=== PATIENT | male | born 1965 | race Caucasian/White ===

== ENCOUNTER 2020-06-04 17:02 | Inpatient (IN) | payer OTHER ==
[2020-06-04] MEDS ORDERED: VANCOMYCIN IV PER PHARMACY 1 EACH MISC MISCELLANE PRN (17:53)
--- NOTE | 2020-06-04 18:04 | ED ---
General Adult HPI - General Source: patient, RN notes reviewed Mode of arrival: ambulatory Limitations: no limitations <Wiliam Renae - Last Filed: 06/04/20 19:02> <Liliane Parker - Last Filed: 06/08/20 00:54> - General Chief complaint: Skin/Abscess/Foreign Body Stated complaint: poss staph infection Time Seen by Provider: 06/04/20 17:47 - History of Present Illness Initial comments: This 55-year-old male presents emergency Department chief complaint of infection to his left leg. Patient states that he was hospitalized a week ago for dehydration, possible food poisoning. Patient states that he started having swelling after of his left leg and which she had an ultrasound was negative for acute DVT. Patient states he is swelling, increased redness or rash. Patient was seen by outpatient coding specialist today, discussed the case with Dr. Crenshaw and which she advised patient to come to the facility to for possible IV antibiotics, admission. Patient reports tries not feeling well, intermittent low-grade temps. Patient states that he has a known diabetic. Patient states his blood sugar has been severely elevated. (Wiliam Renae) - Related Data Allergies Allergy/AdvReac Type Severity Reaction Status Date / Time Penicillins Allergy Unknown Verified 06/04/20 19:29 Review of Systems ROS Other: All systems not noted in ROS Statement are negative. <Wiliam Renae - Last Filed: 06/04/20 19:02> ROS Other: All systems not noted in ROS Statement are negative. <Liliane Parker - Last Filed: 06/08/20 00:54> ROS Statement: Those systems with pertinent positive or pertinent negative responses have been documented in the HPI. Past Medical History Past Medical History: Diabetes Mellitus, Hyperlipidemia, Hypertension History of Any Multi-Drug Resistant Organisms: None Reported Past Psychological History: No Psychological Hx Reported Smoking Status: Never smoker Past Alcohol Use History: None Reported Past Drug Use History: None Reported <Wiliam Renae - Last Filed: 06/04/20 19:02> General Exam Limitations: no limitations General appearance: alert, in no apparent distress Head exam: Present: atraumatic, normocephalic, normal inspection Eye exam: Present: normal appearance, PERRL, EOMI. Absent: scleral icterus, conjunctival injection, periorbital swelling Respiratory exam: Present: normal lung sounds bilaterally. Absent: respiratory distress, wheezes, rales, rhonchi, stridor Cardiovascular Exam: Present: regular rate, normal rhythm, normal heart sounds. Absent: systolic murmur, diastolic murmur, rubs, gallop, clicks GI/Abdominal exam: Present: soft, normal bowel sounds. Absent: distended, tenderness, guarding, rebound, rigid Extremities exam: Present: other (Left lower extremity there is significant swelling, erythema, full thickness cellulitis, there is debridement and wraps noted from wound care) Neurological exam: Present: alert Skin exam: Present: warm, dry, intact, normal color. Absent: rash <Wiliam Renae - Last Filed: 06/04/20 19:02> Course Vital Signs 06/04/20 06/04/20 06/04/20 17:06 20:55 21:03 Temperature 98.8 F 100.2 F H 98.1 F Pulse Rate 81 93 Pulse Rate [ 81 Pulse Oximetery ] Respiratory 18 18 18 Rate Blood Pressure 154/74 165/89 Blood Pressure 192/92 [Right Arm] O2 Sat by Pulse 98 97 97 Oximetry Medical Decision Making - Lab Data Result diagrams: 06/04/20 18:23 <Wiliam Renae - Last Filed: 06/04/20 19:02> - Lab Data Result diagrams: 06/05/20 08:26 06/07/20 06:51 <Liliane Parker - Last Filed: 06/08/20 00:54> - Medical Decision Making 55-year-old presented for left leg infection. Patient was sent in from wound care for admission for IV antiemetics. Patient has extensive cellulitis with recent debridement. Patient will be admitted with consult to wound care infectious disease. (Wiliam Renae) I was available for consultation in the emergency department. The history and physical exam were done by the midlevel provider. I was consulted for this patients care. I reviewed the case with the midlevel provider and based on their presentation of the patient, I agree with the assessment, medical decision making and plan of care as documented. Chart was dictated using [employer] dictation software. Attempts were made to correct any dictation errors however some typographical errors may persist. Patient was seen during a national state of emergency due to the Covid-19 pandemic. (Damer,Liliane A) - Lab Data Lab Results 06/04/20 06/04/20 06/04/20 Range/Units 18:23 18:23 18:23 WBC 11.0 H (3.8-10.6) k/uL RBC 4.18 L (4.30-5.90) m/uL Hgb 11.7 L (13.0-17.5) gm/dL Hct 35.3 L (39.0-53.0) % MCV 84.3 (80.0-100.0) fL MCH 27.9 (25.0-35.0) pg MCHC 33.1 (31.0-37.0) g/dL RDW 12.4 (11.5-15.5) % Plt Count 357 (150-450) k/uL MPV 8.7 Neutrophils % 82 % Lymphocytes % 10 % Monocytes % 5 % Eosinophils % 1 % Basophils % 0 % Neutrophils # 9.0 H (1.3-7.7) k/uL Lymphocytes # 1.1 (1.0-4.8) k/uL Monocytes # 0.5 (0-1.0) k/uL Eosinophils # 0.1 (0-0.7) k/uL Basophils # 0.0 (0-0.2) k/uL PT 9.9 (9.0-12.0) sec INR 0.9 (<1.2) APTT 26.1 (22.0-30.0) sec Sodium 132 L (137-145) mmol/L Potassium 4.8 (3.5-5.1) mmol/L Chloride 97 L (98-107) mmol/L Carbon Dioxide 30 (22-30) mmol/L Anion Gap 5 mmol/L BUN 31 H (9-20) mg/dL Creatinine 1.83 H (0.66-1.25) mg/dL Est GFR (CKD-EPI)AfAm 46 (>60 ml/min/1.73 sqM) Est GFR (CKD-EPI)NonAf 40 (>60 ml/min/1.73 sqM) Glucose 378 H (74-99) mg/dL Plasma Lactic Acid Mello (0.7-2.0) mmol/L Calcium 8.4 (8.4-10.2) mg/dL Total Bilirubin 0.4 (0.2-1.3) mg/dL AST 16 L (17-59) U/L ALT 16 (4-49) U/L Alkaline Phosphatase 112 (38-126) U/L C-Reactive Protein 194.1 H (<10.0) mg/L Total Protein 6.3 (6.3-8.2) g/dL Albumin 2.6 L (3.5-5.0) g/dL 06/04/20 Range/Units 18:23 WBC (3.8-10.6) k/uL RBC (4.30-5.90) m/uL Hgb (13.0-17.5) gm/dL Hct (39.0-53.0) % MCV (80.0-100.0) fL MCH (25.0-35.0) pg MCHC (31.0-37.0) g/dL RDW (11.5-15.5) % Plt Count (150-450) k/uL MPV Neutrophils % % Lymphocytes % % Monocytes % % Eosinophils % % Basophils % % Neutrophils # (1.3-7.7) k/uL Lymphocytes # (1.0-4.8) k/uL Monocytes # (0-1.0) k/uL Eosinophils # (0-0.7) k/uL Basophils # (0-0.2) k/uL PT (9.0-12.0) sec INR (<1.2) APTT (22.0-30.0) sec Sodium (137-145) mmol/L Potassium (3.5-5.1) mmol/L Chloride (98-107) mmol/L Carbon Dioxide (22-30) mmol/L Anion Gap mmol/L BUN (9-20) mg/dL Creatinine (0.66-1.25) mg/dL Est GFR (CKD-EPI)AfAm (>60 ml/min/1.73 sqM) Est GFR (CKD-EPI)NonAf (>60 ml/min/1.73 sqM) Glucose (74-99) mg/dL Plasma Lactic Acid Mello 1.2 (0.7-2.0) mmol/L Calcium (8.4-10.2) mg/dL Total Bilirubin (0.2-1.3) mg/dL AST (17-59) U/L ALT (4-49) U/L Alkaline Phosphatase (38-126) U/L C-Reactive Protein (<10.0) mg/L Total Protein (6.3-8.2) g/dL Albumin (3.5-5.0) g/dL Disposition <Wiliam Renae - Last Filed: 06/04/20 19:02> <Liliane Parker - Last Filed: 06/08/20 00:54> Clinical Impression: Left leg cellulitis, Failure of outpatient treatment Disposition: ADMITTED IP TO THIS HOSP Condition: Fair
[2020-06-04] MEDS ORDERED: VANCOMYCIN 2,000 MG in SODIUM CHLORIDE 0.9% 500 ML 500 ML IVPB ONE (18:30)
[2020-06-04 18:56] LABS: Basophils % (A) 0 %; Eosinophils # (A) 0.1 k/uL (0-0.7); Eosinophils % (A) 1 %; HCT 35.3 % (39.0-53.0); HGB 11.7 gm/dL (13.0-17.5); Lymphocytes # (A) 1.1 k/uL (1.0-4.8); Lymphocytes % (A) 10 %; MCH 27.9 pg (25.0-35.0); MCHC 33.1 g/dL (31.0-37.0); MCV 84.3 fL (80.0-100.0); Mean Platelet Volume 8.7; Monocytes # (A) 0.5 k/uL (0-1.0); Monocytes % (A) 5 %; Neutrophils % (A) 82 %; Platelet Count 357 k/uL (150-450); RBC 4.18 m/uL (4.30-5.90); RDW 12.4 % (11.5-15.5)
[2020-06-04] MEDS ORDERED: LORazepam 2 MG/ML INJ IV PRN (19:03)
[2020-06-04] MEDS ORDERED: ACETAMINOPHEN TAB 325 MG TAB PO PRN (19:03)
[2020-06-04] MEDS ORDERED: MORPHINE SULFATE 4 MG/ML SYRINGE IV PRN (19:03)
[2020-06-04] MEDS ORDERED: NALOXONE 0.4 MG/ML 1 ML VIAL IV PRN (19:03)
[2020-06-04] MEDS ORDERED: ONDANSETRON 4 MG/2 ML VIAL IVP PRN (19:03)
[2020-06-04 19:07] LABS: INR 0.9 (<1.2); Partial Thromboplastin Time 26.1 sec (22.0-30.0); Prothrombin Time 9.9 sec (9.0-12.0)
[2020-06-04 19:13] LABS: Albumin 2.6 g/dL (3.5-5.0); Calcium 8.4 mg/dL (8.4-10.2); Potassium 4.8 mmol/L (3.5-5.1); Total Bilirubin 0.4 mg/dL (0.2-1.3); Total Protein 6.3 g/dL (6.3-8.2)
[2020-06-04 19:27] LABS: C Reactive Protein 194.1 mg/L (<10.0)
[2020-06-04 21:36] LABS: Glucose,Whole Blood 324 mg/dL (75-99)
[2020-06-04] MEDS: INSULIN ASPART (NovoLOG) 100 UNIT/ML VIAL SQ SCH (21:41)
[2020-06-04] MEDS: HEPARIN SODIUM,PORCINE 5,000 UNIT/ML 1 ML VIAL SQ SCH (21:42)
[2020-06-04] MEDS: FAMOTIDINE 20 MG/2 ML VIAL IV SCH (21:42)
[2020-06-04] MEDS ORDERED: hydrALAZINE HCL 25 MG TAB PO PRN (22:05)
[2020-06-04] MEDS ORDERED: METOPROLOL SUCCINATE (ER) 25 MG TAB.ER.24H PO STA (22:14)
[2020-06-05 07:18] LABS: Glucose,Whole Blood 187 mg/dL (75-99)
[2020-06-05] MEDS: FAMOTIDINE 20 MG/2 ML VIAL IV SCH (07:21)
[2020-06-05] MEDS: METOPROLOL SUCCINATE (ER) 25 MG TAB.ER.24H PO SCH ×2 (07:21→20:39)
[2020-06-05] MEDS: INSULIN ASPART (NovoLOG) 100 UNIT/ML VIAL SQ SCH ×4 (07:51→20:42)
[2020-06-05] MEDS: MAGNESIUM OXIDE 400 MG TAB PO SCH (07:52)
[2020-06-05] MEDS: EZETIMIBE 10 MG TAB PO SCH (07:53)
[2020-06-05] MEDS: ASPIRIN 325 MG TAB PO SCH (07:53)
[2020-06-05] MEDS: ESCITALOPRAM 5 MG TAB PO SCH (07:53)
[2020-06-05] MEDS: FENOFIBRATE 160 MG TAB PO SCH (07:53)
[2020-06-05] MEDS: HEPARIN SODIUM,PORCINE 5,000 UNIT/ML 1 ML VIAL SQ SCH ×2 (07:54→20:39)
[2020-06-05] MEDS ORDERED: VANCOMYCIN 2,000 MG in SODIUM CHLORIDE 0.9% 500 ML 500 ML IVPB SCH (08:00)
[2020-06-05 08:46] LABS: Basophils % (A) 0 %; Eosinophils # (A) 0.1 k/uL (0-0.7); Eosinophils % (A) 1 %; Lymphocytes # (A) 1.5 k/uL (1.0-4.8); Lymphocytes % (A) 12 %; MCH 27.4 pg (25.0-35.0); MCHC 32.5 g/dL (31.0-37.0); MCV 84.1 fL (80.0-100.0); Mean Platelet Volume 8.3; Monocytes # (A) 0.6 k/uL (0-1.0); Monocytes % (A) 5 %; Neutrophils # (A) 9.9 k/uL (1.3-7.7); Neutrophils % (A) 80 %; Platelet Count 339 k/uL (150-450); RDW 12.4 % (11.5-15.5); WBC 12.4 k/uL (3.8-10.6)
[2020-06-05] MEDS ORDERED: LOSARTAN 50 MG TAB PO SCH (09:00)
[2020-06-05] MEDS ORDERED: hydroCHLOROthiazide 25 MG TAB PO SCH (09:00)
[2020-06-05] MEDS ORDERED: hydrALAZINE HCL 25 MG TAB PO PRN (10:16)
[2020-06-05] MEDS ORDERED: HYDROmorphone 0.5 MG/0.5 ML SYRINGE IVP PRN (10:19)
[2020-06-05] MEDS: amLODIPine 10 MG TAB PO SCH (10:45)
--- NOTE | 2020-06-05 11:23 | P.CONS ---
History of Present Illness - Reason for Consult Consult date: 06/05/20 wound care - History of Present Illness this is a 55-year-old patient being seen on [address] for a nonhealing ulceration to the left lower extremity. Patient states that he went to the wound care center at [place] who instructed him to go to the ER for cellulitis. Patient has multiple left lower extremity ulcerations that are weeping and Limited to skin breakdown. Patient states that the ulcerations have been going on for about a week before he went to the wound care center. The entire left lower extremity has erythema and induration noted. It is tender to touch. patient's past medical history significant for diabetes mellitus, hyperlipidemia, hypertension. He is not a smoker. Review of Systems Review Of Systems: Constitutional: No fever, no chills, no night sweats. No weight change. No weakness, fatigue or lethargy. No daytime sleepiness. Integumentary:reports wounds, no lesions. No rash or pruritus. No unusual bruising. No change in hair or nails. Past Medical History Past Medical History: Diabetes Mellitus, Hyperlipidemia, Hypertension History of Any Multi-Drug Resistant Organisms: None Reported Past Psychological History: No Psychological Hx Reported Smoking Status: Never smoker Past Alcohol Use History: None Reported Past Drug Use History: None Reported Medications and Allergies Home Medications Medication Instructions Recorded Confirmed Type Arginine [l-Arginine] 500 mg PO DAILY 06/04/20 06/04/20 History Aspirin EC [Ecotrin] 325 mg PO DAILY 06/04/20 06/04/20 History Cinnamon Bark [Cinnamon] 500 mg PO DAILY 06/04/20 06/04/20 History Doxycycline Hyclate [Vibramycin] 100 mg PO BID 06/04/20 06/04/20 History Ergocalciferol [Vitamin D2] 50,000 unit PO MOFR 06/04/20 06/04/20 History Escitalopram [Lexapro] 5 mg PO DAILY 06/04/20 06/04/20 History Ezetimibe [Zetia] 10 mg PO DAILY 06/04/20 06/04/20 History Fenofibrate Nanocrystallized 145 mg PO DAILY 06/04/20 06/04/20 History [Tricor] Insulin Glargine,Hum.rec.anlog 90 units SQ DAILY 06/04/20 06/04/20 History [Toujeo Solostar] Liraglutide [Victoza 3-Jimmy] 1.8 mg SQ DAILY 06/04/20 06/04/20 History Losartan Potassium 100 mg PO DAILY 06/04/20 06/04/20 History Magnesium 200 mg PO DAILY 06/04/20 06/04/20 History Metoprolol Succinate [Toprol XL] 75 mg PO BID 06/04/20 06/04/20 History Multivitamins, Thera [Multivitamin 1 tab PO DAILY 06/04/20 06/04/20 History (formulary)] Ubidecarenone [Co Q-10] 100 mg PO DAILY 06/04/20 06/04/20 History hydroCHLOROthiazide [Hydrodiuril] 25 mg PO DAILY 06/04/20 06/04/20 History Allergies Allergy/AdvReac Type Severity Reaction Status Date / Time Penicillins Allergy Unknown Verified 06/04/20 19:29 Physical Exam Vitals: Vital Signs Temp Pulse Pulse Resp BP BP BP 06/05/20 10:56 98.6 F 80 16 183/94 06/05/20 09:23 98.4 F 91 190/91 06/05/20 08:49 78 06/05/20 07:15 100.1 F H 78 16 218/110 06/05/20 05:59 208/109 06/04/20 23:22 139/74 06/04/20 21:03 98.1 F 81 18 192/92 06/04/20 20:55 100.2 F H 93 18 165/89 06/04/20 17:06 98.8 F 81 18 154/74 Pulse Ox 06/05/20 10:56 95 06/05/20 09:23 06/05/20 08:49 06/05/20 07:15 95 06/05/20 05:59 06/04/20 23:22 06/04/20 21:03 97 06/04/20 20:55 97 06/04/20 17:06 98 Intake and Output 06/04/20 06/05/20 06/05/20 22:59 06:59 14:59 Intake Total 118 Balance 118 Intake: Oral 118 Other: Voiding Method Toilet Urinal # Voids 1 Weight 124.738 kg Physical exam: General Appearance: Alert, cooperative, no distress, appears stated age. Skin: See HPI all other Skin color, texture, tugor normal, no rashes or lesions. Neurologic: Alert oriented x3 Results CBC & Chem 7: 06/05/20 08:26 06/04/20 18:23 Labs: Abnormal Lab Results - Last 24 Hours (Table) 06/04/20 06/04/20 06/04/20 Range/Units 18:23 18:23 21:35 WBC 11.0 H (3.8-10.6) k/uL RBC 4.18 L (4.30-5.90) m/uL Hgb 11.7 L (13.0-17.5) gm/dL Hct 35.3 L (39.0-53.0) % Neutrophils # 9.0 H (1.3-7.7) k/uL Sodium 132 L (137-145) mmol/L Chloride 97 L (98-107) mmol/L BUN 31 H (9-20) mg/dL Creatinine 1.83 H (0.66-1.25) mg/dL Glucose 378 H (74-99) mg/dL POC Glucose (mg/dL) 324 H (75-99) mg/dL AST 16 L (17-59) U/L C-Reactive Protein 194.1 H (<10.0) mg/L Albumin 2.6 L (3.5-5.0) g/dL 06/05/20 06/05/20 Range/Units 07:16 08:26 WBC 12.4 H (3.8-10.6) k/uL RBC (4.30-5.90) m/uL Hgb 12.0 L (13.0-17.5) gm/dL Hct 37.0 L (39.0-53.0) % Neutrophils # 9.9 H (1.3-7.7) k/uL Sodium (137-145) mmol/L Chloride (98-107) mmol/L BUN (9-20) mg/dL Creatinine (0.66-1.25) mg/dL Glucose (74-99) mg/dL POC Glucose (mg/dL) 187 H (75-99) mg/dL AST (17-59) U/L C-Reactive Protein (<10.0) mg/L Albumin (3.5-5.0) g/dL Assessment and Plan (1) Diabetes with skin ulcer Current Visit: Yes Status: Acute Code(s): E11.622 - TYPE 2 DIABETES MELLITUS WITH OTHER SKIN ULCER; L98.499 - NON-PRESSURE CHRONIC ULCER OF SKIN OF SITES W UNSP SEVERITY SNOMED Code(s): 59935641 (2) Non-healing ulcer of multiple sites of lower extremity, limited to breakdown of skin Current Visit: Yes Status: Acute Code(s): L97.901 - NON-PRS CHR ULC UNSP PRT OF UNSP LOW LEG LMT TO BRKDWN SKIN SNOMED Code(s): 77327042 (3) Left leg cellulitis Current Visit: Yes Status: Acute Code(s): L03.116 - CELLULITIS OF LEFT LOWER LIMB SNOMED Code(s): 540927727 Plan: apply absorptive silver to all open areas, saline moistened gauze, ABD, rolled gauze and secure with paper tape. Utilize an Bryn wrap to help control edema. Only change the absorptive silver Tuesday and Tuesday. Change the outer dressings which include saline moistened gauze ABDs rolled gauze and Bryn wrap daily and as needed if overly saturated. patient continue his outpatient wound care appointments with [facility]. Thank for the consultation any questions contact the wound care center DNP note has been reviewed and discussed with Dr. Zhao and the impression and plan of care has been directed as dictated. Time with Patient: Greater than 30 (spoke with related to the wound and dressings.)
[2020-06-05 11:38] LABS: Glucose,Whole Blood 181 mg/dL (75-99)
[2020-06-05] MEDS: hydrALAZINE HCL 50 MG TAB PO STA ×2 (11:40→12:01)
[2020-06-05] MEDS: SODIUM CHLORIDE 0.9% 1,000 ML IV SCH ×2 (11:42→20:39)
[2020-06-05] MEDS: HYDROcodone/APAP 5-325MG 1 EACH TAB PO PRN (14:26)
--- NOTE | 2020-06-05 14:29 | P.HPIM ---
History of Present Illness 55-year-old male was sent in from a PCPs office to wound care center and found to have extensive cellulitis was subsequently sent to ER. Patient has extensive cellulitis and skin breakdown involving the anti-left lower limb with erythema in duration. Patient appears to have sloughing of skin. Patient was sent to the hospital was started on the antibiotics clindamycin. Although patient has of poor renal function with creatinine of 1. the 8 baseline is not available at this time. Patient is not aware of. Any dysfunction. Nephrology was consulted patient was started on IV fluids nephrotoxic agents are being held infectious disease was consulted. Review of Systems REVIEW OF SYSTEMS: CONSTITUTIONAL: No fever, no malaise, no fatigue. HEENT: No recent visual problems or hearing problems. Denied any sore throat. CARDIOVASCULAR: No chest pain, orthopnea, PND, no palpitations, no syncope. PULMONARY: No shortness of breath, no cough, no hemoptysis. GASTROINTESTINAL: No diarrhea, no nausea, no vomiting, no abdominal pain. NEUROLOGICAL: No headaches, no weakness, no numbness. HEMATOLOGICAL: Denies any bleeding or petechiae. GENITOURINARY: Denies any burning micturition, frequency, or urgency. MUSCULOSKELETAL/RHEUMATOLOGICAL: Denies any joint pain, swelling, or any muscle pain. ENDOCRINE: Denies any polyuria or polydipsia. The rest of the 14-point review of systems is negative. Past Medical History Past Medical History: Diabetes Mellitus, Hyperlipidemia, Hypertension History of Any Multi-Drug Resistant Organisms: None Reported Past Psychological History: No Psychological Hx Reported Smoking Status: Never smoker Past Alcohol Use History: None Reported Past Drug Use History: None Reported Medications and Allergies Home Medications Medication Instructions Recorded Confirmed Type Arginine [l-Arginine] 500 mg PO DAILY 06/04/20 06/04/20 History Aspirin EC [Ecotrin] 325 mg PO DAILY 06/04/20 06/04/20 History Cinnamon Bark [Cinnamon] 500 mg PO DAILY 06/04/20 06/04/20 History Doxycycline Hyclate [Vibramycin] 100 mg PO BID 06/04/20 06/04/20 History Ergocalciferol [Vitamin D2] 50,000 unit PO MOFR 06/04/20 06/04/20 History Escitalopram [Lexapro] 5 mg PO DAILY 06/04/20 06/04/20 History Ezetimibe [Zetia] 10 mg PO DAILY 06/04/20 06/04/20 History Fenofibrate Nanocrystallized 145 mg PO DAILY 06/04/20 06/04/20 History [Tricor] Insulin Glargine,Hum.rec.anlog 90 units SQ DAILY 06/04/20 06/04/20 History [Marlen Solostar] Liraglutide [Victoza 3-Jimmy] 1.8 mg SQ DAILY 06/04/20 06/04/20 History Losartan Potassium 100 mg PO DAILY 06/04/20 06/04/20 History Magnesium 200 mg PO DAILY 06/04/20 06/04/20 History Metoprolol Succinate [Toprol XL] 75 mg PO BID 06/04/20 06/04/20 History Multivitamins, Thera [Multivitamin 1 tab PO DAILY 06/04/20 06/04/20 History (formulary)] Ubidecarenone [Co Q-10] 100 mg PO DAILY 06/04/20 06/04/20 History hydroCHLOROthiazide [Hydrodiuril] 25 mg PO DAILY 06/04/20 06/04/20 History Allergies Allergy/AdvReac Type Severity Reaction Status Date / Time Penicillins Allergy Unknown Verified 06/04/20 19:29 Physical Exam Vitals: Vital Signs Temp Pulse Pulse Resp BP BP BP 06/05/20 10:56 98.6 F 80 16 183/94 06/05/20 09:23 98.4 F 91 190/91 06/05/20 08:49 78 06/05/20 07:15 100.1 F H 78 16 218/110 06/05/20 05:59 208/109 06/04/20 23:22 139/74 06/04/20 21:03 98.1 F 81 18 192/92 06/04/20 20:55 100.2 F H 93 18 165/89 06/04/20 17:06 98.8 F 81 18 154/74 Pulse Ox 06/05/20 10:56 95 06/05/20 09:23 06/05/20 08:49 06/05/20 07:15 95 06/05/20 05:59 06/04/20 23:22 06/04/20 21:03 97 06/04/20 20:55 97 06/04/20 17:06 98 Intake and Output 06/04/20 06/05/20 06/05/20 22:59 06:59 14:59 Intake Total 118 Balance 118 Intake: Oral 118 Other: Voiding Method Toilet Urinal # Voids 1 Weight 124.738 kg PHYSICAL EXAMINATION: GENERAL: The patient is alert and oriented x3, not in any acute distress. Well developed, well nourished. HEENT: Pupils are round and equally reacting to light. EOMI. No scleral icterus. No conjunctival pallor. Normocephalic, atraumatic. No pharyngeal erythema. No thyromegaly. CARDIOVASCULAR: S1 and S2 present. No murmurs, rubs, or gallops. PULMONARY: Chest is clear to auscultation, no wheezing or crackles. ABDOMEN: Soft, nontender, nondistended, normoactive bowel sounds. No palpable organomegaly. MUSCULOSKELETAL: No joint swelling or deformity. EXTREMITIES: No cyanosis, clubbing, or pedal edema. NEUROLOGICAL: Gross neurological examination did not reveal any focal deficits. SKIN: Extensive cellulitis of the left leg involving the whole left leg with skin breakdown and ulceration predominantly in the posterior aspect extensive erythema Results CBC & Chem 7: 06/05/20 08:26 06/04/20 18:23 Labs: Abnormal Lab Results - Last 24 Hours (Table) 06/04/20 06/04/20 06/04/20 Range/Units 18:23 18:23 21:35 WBC 11.0 H (3.8-10.6) k/uL RBC 4.18 L (4.30-5.90) m/uL Hgb 11.7 L (13.0-17.5) gm/dL Hct 35.3 L (39.0-53.0) % Neutrophils # 9.0 H (1.3-7.7) k/uL Sodium 132 L (137-145) mmol/L Chloride 97 L (98-107) mmol/L BUN 31 H (9-20) mg/dL Creatinine 1.83 H (0.66-1.25) mg/dL Glucose 378 H (74-99) mg/dL POC Glucose (mg/dL) 324 H (75-99) mg/dL AST 16 L (17-59) U/L C-Reactive Protein 194.1 H (<10.0) mg/L Albumin 2.6 L (3.5-5.0) g/dL 06/05/20 06/05/20 06/05/20 Range/Units 07:16 08:26 11:37 WBC 12.4 H (3.8-10.6) k/uL RBC (4.30-5.90) m/uL Hgb 12.0 L (13.0-17.5) gm/dL Hct 37.0 L (39.0-53.0) % Neutrophils # 9.9 H (1.3-7.7) k/uL Sodium (137-145) mmol/L Chloride (98-107) mmol/L BUN (9-20) mg/dL Creatinine (0.66-1.25) mg/dL Glucose (74-99) mg/dL POC Glucose (mg/dL) 187 H 181 H (75-99) mg/dL AST (17-59) U/L C-Reactive Protein (<10.0) mg/L Albumin (3.5-5.0) g/dL Thrombosis Risk Factor Assmnt - Choose All That Apply Any of the Below Risk Factors Present?: Yes Each Factor Represents 1 point: Age 41-60 years, Obesity (BMI >25) Other Risk Factors: No Other congenital or acquired thrombophilia - If yes, enter type in comment: No Thrombosis Risk Factor Assessment Total Risk Factor Score: 2 Thrombosis Risk Factor Assessment Level: Low Risk Assessment and Plan Plan: -Extensive cellulitis, secondary ulceration diabetic foot infection: Patient will be started on vancomycin infectious disease was consulted. Continue with vancomycin. Cultures will be obtained -Sepsis: Secondary to cellulitis as mentioned above -Hypovolemic hyponatremia IV fluids will be started -Acute renal failure possibly of chronic kidney disease cannot be ruled out cannot stays chronic chronic kidney disease at this time acute renal failure is probably secondary to prerenal azotemia nephrotoxic agents will be held including hydrochlorothiazide, JULES inhibitor continue with IV fluids. -Essential hypertension elevated blood pressure, hypertensive urgency: For which patient was started on amlodipine continue with as needed by mouth hydralazine -Type 2 diabetes mellitus -Hyperlipidemia DVT prophylaxis with heparin subcutaneous -depression
--- NOTE | 2020-06-05 16:23 | CONS ---
CONSULTATION REASON FOR CONSULT: Renal failure. HISTORY OF PRESENT ILLNESS: Patient is a 55-year-old male admitted to the hospital with complaints of significant pain and swelling and redness in his left leg. This has been going on for about a week now. The patient denies any prior history of kidney diseases. There is no history of trauma or injury to his leg. Serum creatinine was 1.83. We do not have any prior labs available for comparison. At home patient was maintained on losartan. He denies use of any nonsteroidal anti-inflammatory agents prior to admission. He currently has good urine output. Blood pressure has been on the high side which was about 218 systolic initially. PAST MEDICAL HISTORY: Significant for type 2 diabetes, hyperlipidemia, hypertension. SOCIAL HISTORY: Negative for smoking, drug abuse or alcohol abuse. MEDICATIONS: At home prior to admission included hydrochlorothiazide, Co-Q10, multivitamins, metoprolol, losartan, magnesium, Tricor, insulin, Zetia, Lexapro, vitamin D2, cinnamon, Ecotrin, Arginine. REVIEW OF SYSTEMS: As per HPI. Other systems negative. PHYSICAL EXAMINATION: Patient is currently comfortable, awake, alert, oriented x3, not in any acute distress. Blood pressure was 183/94, heart rate 80 per minute, he is afebrile. Examination of the heart S1, S2. Examination of the lungs, bilateral breath sounds are heard. Abdomen is soft, nontender, obese. Examination of the lower extremities shows no significant edema right leg. There is significant erythema, redness, scaling and swelling noted in his left lower extremity with ulceration of the skin noted. 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 LABS: Show hemoglobin 12.0, white cell count 12.4, platelet count of 339,000, sodium 132 yesterday, potassium 4.8, chloride 97, BUN 31, creatinine 1.83, calcium 8.4, albumin 2.6. No previous labs available for comparison. ASSESSMENT: 1. Acute kidney injury most likely acute tubular necrosis, associated with underlying infection. Need to rule out underlying chronic kidney disease. Previous labs not available at this time. Repeat labs from today are pending. Continue with IV fluids for now. If renal function continues to worsen, recommend changing the vancomycin to either daptomycin on Zyvox. I will check a urinalysis as well. Continue to hold off on the JULES inhibitors for now. 2. Hypertension uncontrolled. Agree with Norvasc. Continue with the hydralazine and Lopressor for now. Patient's heart rate is not significantly elevated, we can change the Lopressor to Coreg if his blood pressure does not improve. He was on 75 mg b.i.d. at home on the Lopressor which is the same currently. Also check an ultrasound of the kidneys. 3. Left lower extremity cellulitis maintained on antibiotics, currently on vancomycin, monitor levels closely and switch to dabbed to or Zyvox if renal function continues to worsen. 4. Rule out chronic kidney disease. 5. Type 2 diabetes, maintained on insulin prior to admission, currently uncontrolled. 6. Hyperlipidemia. PLAN: Continue with IV fluids. Continue antibiotics. Check urinalysis. Check ultrasound of the kidneys. Repeat labs today and in a.m. Thank you for this consultation. Will continue to follow the patient with you during his hospitalization. MMODL / IJN: [id number] /
[2020-06-05 16:40] LABS: Glucose,Whole Blood 178 mg/dL (75-99)
[2020-06-05 16:53] LABS: African American GFR (CKD) 50.8 (60.0-200.0); Anion Gap 7.6 mmol/L (4.00-12.00); BUN/Creat Ratio 15.29 Ratio (12.00-20.00); Calcium 8.7 mg/dL (8.7-10.3); Carbon Dioxide 28.4 mmol/L (21.6-31.8); Non-African American GFR(CKD) 43.8 (60.0-200.0); Potassium 4.2 mmol/L (3.5-5.5)
[2020-06-05 20:30] LABS: Glucose,Whole Blood 238 mg/dL (75-99)
[2020-06-05 21:12] LABS: Glucose,Whole Blood 226 mg/dL (75-99)
--- NOTE | 2020-06-05 22:13 | P.CONS ---
History of Present Illness - Reason for Consult Consult date: 06/05/20 left leg cellulitis Requesting physician: Rohit Sandoval Sheet - Chief Complaint swelling and pain to left leg x few days - History of Present Illness Patient is a 55-year male presented to the hospital with increasing pain swelling redness of the left lower extremity with apparent has been continuous for the last 1 week, patient mention increasing swelling to the legs followed by blister that has opened leading to formation of ulceration with associated surrounding swelling and redness patient complaining of pain to the left leg to be more of a throbbing to dull aching 5-6 over 10 and no radiation patient did have some chills and a low-grade fever on arrival to the ER with a temperature 100.2 patient did not have significant tachycardia white count elevated at 12.4 patient also have elevated creatinine of 1.83 patient was admitted to the hospital patient has been started on vancomycin pharmacy to dose and he received a dose of Rocephin infectious disease was consulted for further management of antibiotic therapy. Review of Systems Positive point has been mentioned in HPI rest of the systems are negative Past Medical History Past Medical History: Diabetes Mellitus, Hyperlipidemia, Hypertension History of Any Multi-Drug Resistant Organisms: None Reported Past Psychological History: No Psychological Hx Reported Smoking Status: Never smoker Past Alcohol Use History: None Reported Past Drug Use History: None Reported Medications and Allergies Home Medications Medication Instructions Recorded Confirmed Type Arginine [l-Arginine] 500 mg PO DAILY 06/04/20 06/04/20 History Aspirin EC [Ecotrin] 325 mg PO DAILY 06/04/20 06/04/20 History Cinnamon Bark [Cinnamon] 500 mg PO DAILY 06/04/20 06/04/20 History Doxycycline Hyclate [Vibramycin] 100 mg PO BID 06/04/20 06/04/20 History Ergocalciferol [Vitamin D2] 50,000 unit PO MOFR 06/04/20 06/04/20 History Escitalopram [Lexapro] 5 mg PO DAILY 06/04/20 06/04/20 History Ezetimibe [Zetia] 10 mg PO DAILY 06/04/20 06/04/20 History Fenofibrate Nanocrystallized 145 mg PO DAILY 06/04/20 06/04/20 History [Tricor] Insulin Glargine,Hum.rec.anlog 90 units SQ DAILY 06/04/20 06/04/20 History [Toujeo Solostar] Liraglutide [Victoza 3-Jimmy] 1.8 mg SQ DAILY 06/04/20 06/04/20 History Losartan Potassium 100 mg PO DAILY 06/04/20 06/04/20 History Magnesium 200 mg PO DAILY 06/04/20 06/04/20 History Metoprolol Succinate [Toprol XL] 75 mg PO BID 06/04/20 06/04/20 History Multivitamins, Thera [Multivitamin 1 tab PO DAILY 06/04/20 06/04/20 History (formulary)] Ubidecarenone [Co Q-10] 100 mg PO DAILY 06/04/20 06/04/20 History hydroCHLOROthiazide [Hydrodiuril] 25 mg PO DAILY 06/04/20 06/04/20 History Allergies Allergy/AdvReac Type Severity Reaction Status Date / Time Penicillins Allergy Unknown Verified 06/04/20 19:29 Physical Exam Vitals: Vital Signs Temp Pulse Pulse Resp BP BP BP 06/05/20 14:00 99 F 73 16 151/76 06/05/20 10:56 98.6 F 80 16 183/94 06/05/20 09:23 98.4 F 91 190/91 06/05/20 08:49 78 06/05/20 07:15 100.1 F H 78 16 218/110 06/05/20 05:59 208/109 06/04/20 23:22 139/74 06/04/20 21:03 98.1 F 81 18 192/92 06/04/20 20:55 100.2 F H 93 18 165/89 Pulse Ox 06/05/20 14:00 98 06/05/20 10:56 95 06/05/20 09:23 06/05/20 08:49 06/05/20 07:15 95 06/05/20 05:59 06/04/20 23:22 06/04/20 21:03 97 06/04/20 20:55 97 Intake and Output 06/05/20 06/05/20 06/05/20 06:59 14:59 22:59 Intake Total 236 Balance 236 Intake: Oral 236 Other: # Voids 1 1 GENERAL DESCRIPTION: Middle-aged male lying in bed, no distress. No tachypnea or accessory muscle of respiration use. HEENT: Shows Pallor , no scleral icterus. Oral mucous membrane is dry. NECK: Trachea central, no thyromegaly. LUNGS: Unlabored breathing. Clear to auscultation anteriorly. No wheeze or crackle. HEART: S1, S2, regular rate and rhythm. ABDOMEN: Soft, no tenderness , guarding or rigidity EXTREMITIES: Diffuse swelling of the left lower extremity with some erythema no purulent drainage. SKIN: No rash, no masses palpable. NEUROLOGICAL: The patient is awake, alert, oriented x3, mood and affect normal. Results CBC & Chem 7: 06/05/20 08:26 06/05/20 08:26 Labs: Abnormal Lab Results - Last 24 Hours (Table) 06/04/20 06/05/20 06/05/20 Range/Units 21:35 07:16 08:26 WBC 12.4 H (3.8-10.6) k/uL Hgb 12.0 L (13.0-17.5) gm/dL Hct 37.0 L (39.0-53.0) % Neutrophils # 9.9 H (1.3-7.7) k/uL Creatinine (0.6-1.5) mg/dL Est GFR (CKD-EPI)AfAm (60.0-200.0) Est GFR (CKD-EPI)NonAf (60.0-200.0) Glucose (70-110) mg/dL POC Glucose (mg/dL) 324 H 187 H (75-99) mg/dL 06/05/20 06/05/20 06/05/20 Range/Units 08:26 11:37 16:38 WBC (3.8-10.6) k/uL Hgb (13.0-17.5) gm/dL Hct (39.0-53.0) % Neutrophils # (1.3-7.7) k/uL Creatinine 1.7 H (0.6-1.5) mg/dL Est GFR (CKD-EPI)AfAm 50.8 L (60.0-200.0) Est GFR (CKD-EPI)NonAf 43.8 L (60.0-200.0) Glucose 191 H (70-110) mg/dL POC Glucose (mg/dL) 181 H 178 H (75-99) mg/dL Microbiology - Last 24 Hours (Table) 06/05/20 12:21 Anaerobic Culture - Preliminary Leg - Left 06/05/20 12:20 Wound Culture - Preliminary Leg - Left Assessment and Plan Assessment: 1-patient admitted hospital with sepsis suspected have a fever elevated white count sources acute renal failure extremity cellulitis and this will have diffuse swelling redness likely streptococcal disease clinically doubt MRSA or gram-negative infection 2-patient with penicillin allergy limiting the number of antibiotics safe to use , patient received a dose of Rocephin and tolerated it 3-renal insufficiency high risk of nephrotoxicity from vancomycin (1) Left leg cellulitis Current Visit: Yes Status: Acute Code(s): L03.116 - CELLULITIS OF LEFT LOWER LIMB SNOMED Code(s): 562361024 Plan: 1-discontinue vancomycin 2- start the patient on cefazolin 2 g every 8 hour 3-local wound care with dry Aquacel silver dressing and Bryn wrap We will follow on clinical condition and cultures to further adjust medication if needed Thank you for this consultation we will follow the patient along with you Time with Patient: Greater than 30
[2020-06-06] MEDS: SODIUM CHLORIDE 0.9% 1,000 ML IV SCH ×2 (00:52→10:59)
[2020-06-06 07:13] LABS: Glucose,Whole Blood 176 mg/dL (75-99)
[2020-06-06] MEDS ORDERED: VANCOMYCIN 2,000 MG in SODIUM CHLORIDE 0.9% 500 ML 500 ML IVPB SCH (08:00)
[2020-06-06] MEDS: INSULIN ASPART (NovoLOG) 100 UNIT/ML VIAL SQ SCH ×4 (08:40→21:14)
[2020-06-06] MEDS: FENOFIBRATE 160 MG TAB PO SCH (08:41)
[2020-06-06] MEDS: EZETIMIBE 10 MG TAB PO SCH (08:41)
[2020-06-06] MEDS: FAMOTIDINE 20 MG TAB PO SCH (08:41)
[2020-06-06] MEDS: HEPARIN SODIUM,PORCINE 5,000 UNIT/ML 1 ML VIAL SQ SCH ×2 (08:41→21:12)
[2020-06-06] MEDS: ESCITALOPRAM 5 MG TAB PO SCH (08:41)
[2020-06-06] MEDS: ASPIRIN 325 MG TAB PO SCH (08:41)
[2020-06-06] MEDS: amLODIPine 10 MG TAB PO SCH (08:42)
[2020-06-06] MEDS: MAGNESIUM OXIDE 400 MG TAB PO SCH (08:42)
[2020-06-06] MEDS: METOPROLOL SUCCINATE (ER) 25 MG TAB.ER.24H PO SCH ×2 (08:42→21:13)
[2020-06-06] MEDS: HYDROcodone/APAP 5-325MG 1 EACH TAB PO PRN ×2 (08:48→17:56)
[2020-06-06 11:28] LABS: African American GFR (CKD) 47.4 (60.0-200.0); BUN/Creat Ratio 15.56 Ratio (12.00-20.00); Calcium 8.8 mg/dL (8.7-10.3); Non-African American GFR(CKD) 40.9 (60.0-200.0); Potassium 4.4 mmol/L (3.5-5.5)
[2020-06-06 12:04] LABS: Glucose,Whole Blood 189 mg/dL (75-99)
[2020-06-06] MEDS ORDERED: hydrALAZINE HCL 25 MG TAB PO PRN (12:59)
--- NOTE | 2020-06-06 16:38 | P.PN ---
Subjective Progress Note Date: 06/06/20 55-year-old male was sent in from a PCPs office to wound care center and found to have extensive cellulitis was subsequently sent to ER. Patient has extensive cellulitis and skin breakdown involving the anti-left lower limb with erythema in duration. Patient appears to have sloughing of skin. Patient was sent to the hospital was started on the antibiotics clindamycin. Although patient has of poor renal function with creatinine of 1. the 8 baseline is not available at this time. Patient is not aware of. Any dysfunction. Nephrology was consulted patient was started on IV fluids nephrotoxic agents are being held infectious disease was consulted. 06/06/2020 Patient is seen and evaluated in follow-up with no acute overnight issues. Patient's left lower extremity continues to be red with swelling and multiple lesions noted along with skin breakdown although is slightly improved from yesterday. Patient is to continue with wound care and dressing changes. Infectious disease is following vancomycin was discontinued and patient was placed on cefazolin. Preliminary culture showing beta hemolytic strep group g and will await cultures finalization to determine antibiotics. Patient contin ues with gentle IV hydration and creatinine remains at 1.8. Nephrology also following and will obtain renal ultrasound and continue fluids at this time. Patient instructed to continue to elevate the lower extremity while at rest as he continues to have some mild 1-2+ pitting edema noted of the left foot. Blood sugars have been slightly elevated and will continue sliding scale at this time. Will repeat a.m. labs and continue to monitor closely. Review of systems: Constitutional: No reports of fatigue, fever, or chills Cardiovascular: No reports of chest pain or palpitations Respiratory: No reports of shortness of breath or cough GI: No reports of nausea, vomiting, or diarrhea : No reports of dysuria or retention Neurovascular: No reports of weakness or numbness Skin: Reports redness and swelling with some tenderness and itchiness of the left lower extremity All medications have been reviewed Objective - Vital Signs Vital signs: Vital Signs Temp 97.8 F 06/06/20 13:13 Pulse 69 06/06/20 13:13 Resp 13 06/06/20 13:13 BP 199/94 06/06/20 13:13 Pulse Ox 97 06/06/20 13:13 Intake & Output 06/05/20 06/06/20 06/06/20 18:59 06:59 18:59 Intake Total 236 532 Output Total 500 Balance 236 32 Intake: Oral 236 532 Output: Urine 500 Other: Voiding Method Toilet Urinal # Voids 1 1 - Exam GENERAL: The patient is alert and oriented x3, not in any acute distress. Well developed, well nourished. HEENT: Pupils are round and equally reacting to light. EOMI. No scleral icterus. No conjunctival pallor. Normocephalic, atraumatic. No pharyngeal erythema. No thyromegaly. CARDIOVASCULAR: S1 and S2 present. No murmurs, rubs, or gallops. PULMONARY: Chest is clear to auscultation, no wheezing or crackles. ABDOMEN: Soft, nontender, nondistended, normoactive bowel sounds. No palpable organomegaly. MUSCULOSKELETAL: No joint swelling or deformity. EXTREMITIES: No cyanosis, clubbing, mild left pedal edema noted on exam NEUROLOGICAL: Gross neurological examination did not reveal any focal deficits. SKIN: Extensive cellulitis of the left leg involving the whole left leg with skin breakdown and ulceration predominantly in the posterior aspect extensive erythema, slightly improved - Labs CBC & Chem 7: 06/05/20 08:26 06/06/20 07:07 Labs: Abnormal Lab Results - Last 24 Hours (Table) 06/05/20 06/05/20 06/05/20 Range/Units 08:26 16:38 20:29 Carbon Dioxide (21.6-31.8) mmol/L BUN (9.0-27.0) mg/dL Creatinine 1.7 H (0.6-1.5) mg/dL Est GFR (CKD-EPI)AfAm 50.8 L (60.0-200.0) Est GFR (CKD-EPI)NonAf 43.8 L (60.0-200.0) Glucose 191 H (70-110) mg/dL POC Glucose (mg/dL) 178 H 238 H (75-99) mg/dL 06/05/20 06/06/20 06/06/20 Range/Units 21:08 07:07 07:11 Carbon Dioxide 32.0 H (21.6-31.8) mmol/L BUN 28.0 H (9.0-27.0) mg/dL Creatinine 1.8 H (0.6-1.5) mg/dL Est GFR (CKD-EPI)AfAm 47.4 L (60.0-200.0) Est GFR (CKD-EPI)NonAf 40.9 L (60.0-200.0) Glucose 180 H (70-110) mg/dL POC Glucose (mg/dL) 226 H 176 H (75-99) mg/dL 06/06/20 Range/Units 12:01 Carbon Dioxide (21.6-31.8) mmol/L BUN (9.0-27.0) mg/dL Creatinine (0.6-1.5) mg/dL Est GFR (CKD-EPI)AfAm (60.0-200.0) Est GFR (CKD-EPI)NonAf (60.0-200.0) Glucose (70-110) mg/dL POC Glucose (mg/dL) 189 H (75-99) mg/dL Microbiology - Last 24 Hours (Table) 06/05/20 12:20 Gram Stain - Preliminary Leg - Left Wound Culture - Preliminary Beta Hemolytic Strep Group G 06/04/20 18:23 Blood Culture - Preliminary Blood No Growth after 24 hours 06/05/20 12:21 Anaerobic Culture - Preliminary Leg - Left Assessment and Plan Assessment: -Extensive cellulitis, secondary ulceration diabetic foot infection: Patient was started on cefazolin infectious disease following. Cultures preliminary showing beta-hemolytic strep group G and will await finalization -Sepsis: Secondary to cellulitis as mentioned above -Hypovolemic hyponatremia IV fluids will be started, continue with IV fluids and monitor and repeat labs in the morning, nephrology following -Acute renal failure possibly of chronic kidney disease cannot be ruled out chronic chronic kidney disease at this time acute renal failure is probably secondary to prerenal azotemia nephrotoxic agents will be held including hydrochlorothiazide, JULES inhibitor continue with IV fluids. -Essential hypertension elevated blood pressure, hypertensive urgency: For which patient was started on amlodipine continue with as needed by mouth hydralazine -Type 2 diabetes mellitus -Hyperlipidemia -DVT prophylaxis with heparin subcutaneous -depression Plan: Continue local wound care, infectious disease is following and IV antibiotics have been changed to cefazolin waiting for culture finalization. Nephrology also following and will continue gentle IV hydration and will repeat a.m. labs. Her son ordered and currently pending. Further recommendations to follow.
--- NOTE | 2020-06-06 16:42 | PN ---
PROGRESS NOTE Patient is seen for followup for acute kidney injury versus chronic kidney disease. At this time we do not have any previous labs available for comparison. However, patient denies any history of kidney diseases. His serum creatinine has been at 1.8 and 1.7 mg/dL. Patient was admitted to the hospital with severe left leg cellulitis and ulceration with no previous history of trauma or sales. He is maintained on antibiotics. He has had good urine output. The patient is maintained on IV fluids, and serum creatinine is staying at 1.8 and 1.7 mg/dL. PHYSICAL EXAMINATION: On examination today, blood pressure was 186/89, heart rate 74 per minute. Patient had a low-grade temperature of 99.8 degrees Fahrenheit. EXAMINATION OF THE HEART: S1 and S2. EXAMINATION OF LUNGS: Bilateral breath sounds are heard. ABDOMEN: Soft, non-tender, obese. Examination of lower extremities shows left leg currently wrapped. Right leg has no edema. [employer] exam is grossly intact. LABS: Labs show sodium 136, potassium 4.4, chloride 99. CO2 is 32, BUN 28, creatinine 1.8 mg/dL. UA is not available yet. ASSESSMENT: 1. Renal failure, acute versus chronic. No previous labs available for comparison. Renal function is the same for the last 3 days. Patient is maintained on IV fluids and the JULES inhibitors are currently on hold. 2. Hypertension, currently uncontrolled. Patient is maintained on Norvasc, hydralazine and Lopressor. The hydralazine is p.r.n. I will add it as a scheduled dose. 3. Left lower extremity cellulitis, maintained on antibiotics. The patient was on vancomycin, which is now discontinued, and he is on cefazolin currently. PLAN: Change hydralazine to scheduled dose. Continue cefazolin as per ID. Continue to avoid nephrotoxic medications, including vancomycin. The patient will definitely need followup as outpatient for possible CKD. MMODL / IJN: [id number] /
--- NOTE | 2020-06-06 17:52 | US ---
EXAMINATION TYPE: US kidneys/renal and bladder DATE OF EXAM: 06/06/2020 COMPARISON: NONE CLINICAL HISTORY: Elevated creatinine, acute renal failure. Renal failure. EXAM MEASUREMENTS: Right Kidney: 12.5 x 5.8 x 4.6 cm Left Kidney: 11.6 x 6.1 x 5.7 cm Right Kidney: No hydronephrosis or masses seen Left Kidney: No hydronephrosis or masses seen Bladder: wnl Bilateral Jets seen: No There is no evidence for hydronephrosis at this point in time. No nephrolithiasis is seen. No sharon s are identified. The urinary bladder is anechoic. IMPRESSION: No evidence of renal mass or obstruction. Ureteral jets were not evident during the time of the exam. Urinary bladder is sonolucent.
[2020-06-06 17:58] LABS: Glucose,Whole Blood 204 mg/dL (75-99)
[2020-06-06 20:48] LABS: Glucose,Whole Blood 195 mg/dL (75-99)
[2020-06-06] MEDS: hydrALAZINE HCL 25 MG TAB PO SCH (21:13)
--- NOTE | 2020-06-07 00:54 | PN ---
PROGRESS NOTE DATE OF SERVICE: 06/06/2020 REASON FOR FOLLOWUP: Left lower extremity cellulitis. INTERVAL HISTORY: Patient is currently afebrile. The patient is breathing comfortably. Overall pain and discomfort to the left left slightly decreased. The patient denies having any chest pain, shortness of breath or cough. No abdominal pain or diarrhea. PHYSICAL EXAMINATION: Blood pressure 118/95 with a pulse of 73, temperature 98.6. He is 96% on room air. General description is a middle-aged male lying in bed in no distress. Respiratory system: Unlabored breathing, clear to auscultation anteriorly. Heart S1, S2. Regular rate and rhythm. Abdomen soft, no tenderness. Left lower extremity swelling and redness slightly decreased. No drainage. LABS: BUN of 20, creatinine is 1.8. DIAGNOSTIC IMPRESSION AND PLAN: Patient with acute left lower extremity cellulitis local culture with beta hemolytic strep group G. The patient is covered with cefazolin to continue, wound care with Aquacel dressing and monitor clinical course closely. MMODL / IJN: [id number] /
[2020-06-07] MEDS: SODIUM CHLORIDE 0.9% 1,000 ML IV SCH (01:15)
[2020-06-07 07:25] LABS: Glucose,Whole Blood 176 mg/dL (75-99)
[2020-06-07] MEDS: HEPARIN SODIUM,PORCINE 5,000 UNIT/ML 1 ML VIAL SQ SCH ×2 (08:29→21:26)
[2020-06-07] MEDS: ASPIRIN 325 MG TAB PO SCH (08:29)
[2020-06-07] MEDS: FAMOTIDINE 20 MG TAB PO SCH (08:29)
[2020-06-07] MEDS: hydrALAZINE HCL 25 MG TAB PO SCH ×3 (08:29→21:26)
[2020-06-07] MEDS: HYDROcodone/APAP 5-325MG 1 EACH TAB PO PRN ×2 (08:29→21:31)
[2020-06-07] MEDS: METOPROLOL SUCCINATE (ER) 25 MG TAB.ER.24H PO SCH ×2 (08:30→21:25)
[2020-06-07] MEDS: MAGNESIUM OXIDE 400 MG TAB PO SCH (08:30)
[2020-06-07] MEDS: amLODIPine 10 MG TAB PO SCH (08:30)
[2020-06-07] MEDS: INSULIN ASPART (NovoLOG) 100 UNIT/ML VIAL SQ SCH ×4 (08:31→21:25)
[2020-06-07] MEDS: EZETIMIBE 10 MG TAB PO SCH (08:32)
[2020-06-07] MEDS: ESCITALOPRAM 5 MG TAB PO SCH (08:32)
[2020-06-07] MEDS: FENOFIBRATE 160 MG TAB PO SCH (08:32)
[2020-06-07 11:31] LABS: Glucose,Whole Blood 232 mg/dL (75-99)
[2020-06-07 12:33] LABS: African American GFR (CKD) 50.8 (60.0-200.0); Anion Gap 5.7 mmol/L (4.00-12.00); BUN/Creat Ratio 16.47 Ratio (12.00-20.00); Calcium 8.4 mg/dL (8.7-10.3); Carbon Dioxide 29.3 mmol/L (21.6-31.8); Non-African American GFR(CKD) 43.8 (60.0-200.0); Potassium 4.6 mmol/L (3.5-5.5)
[2020-06-07 17:22] LABS: Glucose,Whole Blood 268 mg/dL (75-99)
[2020-06-07 19:48] LABS: Glucose,Whole Blood 268 mg/dL (75-99)
--- NOTE | 2020-06-07 23:45 | PN ---
PROGRESS NOTE DATE OF SERVICE: 06/07/2020 REASON FOR FOLLOWUP: Left lower extremity cellulitis. INTERVAL HISTORY: Patient is currently afebrile. The patient is breathing comfortably. Patient denies having any chest pain. No shortness of breath or cough. No nausea or vomiting or abdominal pain. Overall pain and discomfort to the left leg has improved. PHYSICAL EXAMINATION: Blood pressure 183/73 with a pulse of 76, temperature 98.4. He is 95% on room air. General description: The patient is a middle-aged male lying in bed in no distress. Respiratory system: Unlabored breathing, clear to auscultation anteriorly. Heart S1, S2. Regular rate and rhythm. Abdomen soft, no tenderness. The left leg is currently wrapped up. No obvious drainage on the dressing. LABS: BUN of 28, creatinine 1.7. DIAGNOSTIC IMPRESSION AND PLAN: Patient with acute left lower extremity cellulitis with diffuse swelling and redness, likely streptococcal disease. Patient to continue with cefazolin. We will reevaluate liver enzymes tomorrow. Continue with Bryn wrap to keep the swelling down and continue supportive care. MMODL / IJN: [id number] /
[2020-06-08] MEDS: SODIUM CHLORIDE 0.9% 1,000 ML IV SCH ×2 (00:32→14:46)
[2020-06-08] MEDS: HYDROcodone/APAP 5-325MG 1 EACH TAB PO PRN ×3 (06:56→21:10)
[2020-06-08] MEDS: FAMOTIDINE 20 MG TAB PO SCH ×2 (07:22→21:14)
[2020-06-08] MEDS: EZETIMIBE 10 MG TAB PO SCH (07:22)
[2020-06-08] MEDS: ESCITALOPRAM 5 MG TAB PO SCH (07:22)
[2020-06-08] MEDS: amLODIPine 10 MG TAB PO SCH (07:23)
[2020-06-08] MEDS: ASPIRIN 325 MG TAB PO SCH (07:23)
[2020-06-08] MEDS: MAGNESIUM OXIDE 400 MG TAB PO SCH (07:24)
[2020-06-08] MEDS: FENOFIBRATE 160 MG TAB PO SCH (07:24)
[2020-06-08] MEDS: METOPROLOL SUCCINATE (ER) 25 MG TAB.ER.24H PO SCH ×2 (07:26→21:11)
[2020-06-08] MEDS: HEPARIN SODIUM,PORCINE 5,000 UNIT/ML 1 ML VIAL SQ SCH ×2 (07:29→21:11)
[2020-06-08 07:38] LABS: Glucose,Whole Blood 161 mg/dL (75-99)
[2020-06-08] MEDS: INSULIN ASPART (NovoLOG) 100 UNIT/ML VIAL SQ SCH ×4 (07:41→21:11)
[2020-06-08] MEDS: hydrALAZINE HCL 25 MG TAB PO SCH (07:47)
[2020-06-08 09:54] LABS: African American GFR (CKD) 54.6 (60.0-200.0); Anion Gap 4.8 mmol/L (4.00-12.00); BUN/Creat Ratio 16.25 Ratio (12.00-20.00); Calcium 8.5 mg/dL (8.7-10.3); Carbon Dioxide 30.2 mmol/L (21.6-31.8); Non-African American GFR(CKD) 47.1 (60.0-200.0); Potassium 4.3 mmol/L (3.5-5.5)
[2020-06-08 11:50] LABS: Glucose,Whole Blood 187 mg/dL (75-99)
--- NOTE | 2020-06-08 13:34 | P.PN ---
Subjective Progress Note Date: 06/08/20 For acute kidney injury. Objective - Vital Signs Vital signs: Vital Signs Temp 98.3 F 06/08/20 07:49 Pulse 64 06/08/20 08:00 Resp 17 06/08/20 08:00 BP 182/100 06/08/20 07:49 Pulse Ox 97 06/08/20 07:49 Intake & Output 06/07/20 06/08/20 06/08/20 18:59 06:59 18:59 Intake Total 1650 480 Output Total 500 Balance 1649 Intake: Intake, IV Titration 800 Amount Sodium Chloride 0.9% 1, 600 000 ml @ 50 mls/hr IV . Q20H [facility] Rx#:[id number] ceFAZolin 2 gm In Sodium 200 Chloride 0.9% 50 ml @ 100 mls/hr IVPB Q8H [facility] Rx#: [id number] Oral 850 480 Output: Urine 500 Other: Voiding Method Toilet Toilet Urinal Urinal # Voids 3 1 - Exam No acute distress S1-S2 heard Lungs clear No edema on left leg wrapped. - Labs CBC & Chem 7: 06/05/20 08:26 06/08/20 05:55 Labs: Abnormal Lab Results - Last 24 Hours (Table) 06/07/20 06/07/20 06/08/20 Range/Units 17:04 19:47 05:55 Creatinine 1.6 H (0.6-1.5) mg/dL Est GFR (CKD-EPI)AfAm 54.6 L (60.0-200.0) Est GFR (CKD-EPI)NonAf 47.1 L (60.0-200.0) Glucose 126 H (70-110) mg/dL POC Glucose (mg/dL) 268 H 268 H (75-99) mg/dL Calcium 8.5 L (8.7-10.3) mg/dL 06/08/20 06/08/20 Range/Units 07:24 11:19 Creatinine (0.6-1.5) mg/dL Est GFR (CKD-EPI)AfAm (60.0-200.0) Est GFR (CKD-EPI)NonAf (60.0-200.0) Glucose (70-110) mg/dL POC Glucose (mg/dL) 161 H 187 H (75-99) mg/dL Calcium (8.7-10.3) mg/dL Microbiology - Last 24 Hours (Table) 06/04/20 18:23 Blood Culture - Preliminary Blood No Growth after 72 hours 06/05/20 12:21 Anaerobic Culture - Preliminary Leg - Left 06/05/20 12:20 Gram Stain - Final Leg - Left Wound Culture - Final Beta Hemolytic Strep Group G Assessment and Plan Assessment: #1 acute kidney injury/chronic kidney disease suspect prerenal process. No previous renal function to compare. #2 hypertension with chronic kidney disease, uncontrolled #3 left foot infection #4 metabolic alkalosis Plan: #1 no function stable. Currently on saline at 50 ML's an hour. #2 on amlodipine and hydralazine for blood pressure control. Increase hydralazine to 50 mg 3 times a day. #3 avoid nephrotoxic agents and hypotensive episodes.
[2020-06-08] MEDS: hydrALAZINE HCL 50 MG TAB PO SCH ×2 (14:51→21:14)
--- NOTE | 2020-06-08 15:34 | P.PN ---
Subjective Progress Note Date: 06/07/20 55-year-old male was sent in from a PCPs office to wound care center and found to have extensive cellulitis was subsequently sent to ER. Patient has extensive cellulitis and skin breakdown involving the anti-left lower limb with erythema in duration. Patient appears to have sloughing of skin. Patient was sent to the hospital was started on the antibiotics clindamycin. Although patient has of poor renal function with creatinine of 1. the 8 baseline is not available at this time. Patient is not aware of. Any dysfunction. Nephrology was consulted patient was started on IV fluids nephrotoxic agents are being held infectious disease was consulted. 06/06/2020 Patient is seen and evaluated in follow-up with no acute overnight issues. Patient's left lower extremity continues to be red with swelling and multiple lesions noted along with skin breakdown although is slightly improved from yesterday. Patient is to continue with wound care and dressing changes. Infectious disease is following vancomycin was discontinued and patient was placed on cefazolin. Preliminary culture showing beta hemolytic strep group g and will await cultures finalization to determine antibiotics. Patient continu es with gentle IV hydration and creatinine remains at 1.8. Nephrology also following and will obtain renal ultrasound and continue fluids at this time. Patient instructed to continue to elevate the lower extremity while at rest as he continues to have some mild 1-2+ pitting edema noted of the left foot. Blood sugars have been slightly elevated and will continue sliding scale at this time. Will repeat a.m. labs and continue to monitor closely. 06/07/2020 Patient is seen and evaluated in room at bedside; remains afebrile; resting comfortably; denies any complaint of chest pain or shortness of breath Vital signs revealed blood pressure of 183/73, pulse 76, temperature of 98.4 with SpO2 of 95% on room air; BUN/creatinine at 28/1.7 Patient continues to have left lower extremity cellulitis with diffuse swelling and redness; IDs following; likely streptococcal infection; shouldn't remains on IV cefazolin; Bryn wrap on to keep swelling down Objective - Vital Signs Vital signs: Vital Signs Temp 98.1 F 06/07/20 14:00 Pulse 68 06/07/20 14:00 Resp 17 06/07/20 14:00 BP 175/94 06/07/20 14:00 Pulse Ox 97 06/07/20 14:00 Intake & Output 06/06/20 06/07/20 06/07/20 18:59 06:59 18:59 Intake Total 2212 Output Total 500 500 Balance 1712 -500 Intake: Intake, IV Titration 700 Amount Sodium Chloride 0.9% 1, 600 000 ml @ 50 mls/hr IV . Q20H AMALIA Rx#:[id number] ceFAZolin 2 gm In Sodium 100 Chloride 0.9% 50 ml @ 100 mls/hr IVPB Q8H AMALIA Rx#: [id number] Oral 1512 Output: Urine 500 500 Other: Voiding Method Toilet Urinal # Voids 2 - Exam GENERAL: The patient is alert and oriented x3, not in any acute distress. Well developed, well nourished. HEENT: Pupils are round and equally reacting to light. EOMI. No scleral icterus. No conjunctival pallor. Normocephalic, atraumatic. No pharyngeal erythema. No thyromegaly. CARDIOVASCULAR: S1 and S2 present. No murmurs, rubs, or gallops. PULMONARY: Chest is clear to auscultation, no wheezing or crackles. ABDOMEN: Soft, nontender, nondistended, normoactive bowel sounds. No palpable organomegaly. MUSCULOSKELETAL: No joint swelling or deformity. EXTREMITIES: No cyanosis, clubbing, mild left pedal edema noted on exam NEUROLOGICAL: Gross neurological examination did not reveal any focal deficits. SKIN: Extensive cellulitis of the left leg involving the whole left leg with skin breakdown and ulceration predominantly in the posterior aspect extensive erythema, slightly improved - Labs CBC & Chem 7: 06/05/20 08:26 06/08/20 05:55 Labs: Abnormal Lab Results - Last 24 Hours (Table) 06/06/20 06/06/20 06/07/20 Range/Units 17:57 20:46 06:51 BUN 28.0 H (9.0-27.0) mg/dL Creatinine 1.7 H (0.6-1.5) mg/dL Est GFR (CKD-EPI)AfAm 50.8 L (60.0-200.0) Est GFR (CKD-EPI)NonAf 43.8 L (60.0-200.0) Glucose 159 H (70-110) mg/dL POC Glucose (mg/dL) 204 H 195 H (75-99) mg/dL Calcium 8.4 L (8.7-10.3) mg/dL 06/07/20 06/07/20 06/07/20 Range/Units 07:21 11:10 17:04 BUN (9.0-27.0) mg/dL Creatinine (0.6-1.5) mg/dL Est GFR (CKD-EPI)AfAm (60.0-200.0) Est GFR (CKD-EPI)NonAf (60.0-200.0) Glucose (70-110) mg/dL POC Glucose (mg/dL) 176 H 232 H 268 H (75-99) mg/dL Calcium (8.7-10.3) mg/dL Microbiology - Last 24 Hours (Table) 06/05/20 12:21 Anaerobic Culture - Preliminary Leg - Left 06/05/20 12:20 Gram Stain - Final Leg - Left Wound Culture - Final Beta Hemolytic Strep Group G 06/04/20 18:23 Blood Culture - Preliminary Blood No Growth after 48 hours Assessment and Plan Assessment: -Extensive cellulitis, secondary ulceration diabetic foot infection: Patient was started on cefazolin infectious disease following. Cultures preliminary showing beta-hemolytic strep group G and will await finalization -Sepsis: Secondary to cellulitis as mentioned above -Hypovolemic hyponatremia IV fluids will be started, continue with IV fluids and monitor and repeat labs in the morning, nephrology following -Acute renal failure possibly of chronic kidney disease cannot be ruled out chronic chronic kidney disease at this time acute renal failure is probably secondary to prerenal azotemia nephrotoxic agents will be held including hydrochlorothiazide, BRYN inhibitor continue with IV fluids. -Essential hypertension elevated blood pressure, hypertensive urgency: For which patient was started on amlodipine continue with as needed by mouth hydralazine -Type 2 diabetes mellitus -Hyperlipidemia -DVT prophylaxis with heparin subcutaneous -depression Plan: Continue local wound care, infectious disease is following and IV antibiotics have been changed to cefazolin waiting for culture finalization. Nephrology also following and will continue gentle IV hydration and will repeat a.m. labs. Her son ordered and currently pending. Further recommendations to follow.
[2020-06-08 16:56] LABS: Glucose,Whole Blood 253 mg/dL (75-99)
[2020-06-08 20:51] LABS: Glucose,Whole Blood 230 mg/dL (75-99)
--- NOTE | 2020-06-09 00:41 | P.PN ---
Subjective Progress Note Date: 06/08/20 55-year-old male was sent in from a PCPs office to wound care center and found to have extensive cellulitis was subsequently sent to ER. Patient has extensive cellulitis and skin breakdown involving the anti-left lower limb with erythema in duration. Patient appears to have sloughing of skin. Patient was sent to the hospital was started on the antibiotics clindamycin. Although patient has of poor renal function with creatinine of 1. the 8 baseline is not available at this time. Patient is not aware of. Any dysfunction. Nephrology was consulted patient was started on IV fluids nephrotoxic agents are being held infectious disease was consulted. 06/06/2020 Patient is seen and evaluated in follow-up with no acute overnight issues. Patient's left lower extremity continues to be red with swelling and multiple lesions noted along with skin breakdown although is slightly improved from yesterday. Patient is to continue with wound care and dressing changes. Infectious disease is following vancomycin was discontinued and patient was placed on cefazolin. Preliminary culture showing beta hemolytic strep group g and will await cultures finalization to determine antibiotics. Patient continu es with gentle IV hydration and creatinine remains at 1.8. Nephrology also following and will obtain renal ultrasound and continue fluids at this time. Patient instructed to continue to elevate the lower extremity while at rest as he continues to have some mild 1-2+ pitting edema noted of the left foot. Blood sugars have been slightly elevated and will continue sliding scale at this time. Will repeat a.m. labs and continue to monitor closely. 06/07/2020 Patient is seen and evaluated in room at bedside; remains afebrile; resting comfortably; denies any complaint of chest pain or shortness of breath Vital signs revealed blood pressure of 183/73, pulse 76, temperature of 98.4 with SpO2 of 95% on room air; BUN/creatinine at 28/1.7 Patient continues to have left lower extremity cellulitis with diffuse swelling and redness; IDs following; likely streptococcal infection; shouldn't remains on IV cefazolin; Bryn wrap on to keep swelling down 06/08/2020 patient sitting comfortably in bed; vital signs are stable; remains on IV antibiotics for cellulitis LLE; renal function stable. Currently on saline at 50 ML's an hour. Blood pressure remains elevated; patient is currently on amlodipine and hydralazine for blood pressure control. Increase hydralazine to 50 mg 3 times a day; continue to avoid nephrotoxic agents and hypotensive episod es. Objective - Vital Signs Vital signs: Vital Signs Temp 98.5 F 06/08/20 14:00 Pulse 61 06/08/20 14:00 Resp 18 06/08/20 14:00 BP 170/74 06/08/20 14:00 Pulse Ox 98 06/08/20 14:00 Intake & Output 06/07/20 06/08/20 06/08/20 18:59 06:59 18:59 Intake Total 1650 480 Output Total 500 Balance 1649 Intake: Intake, IV Titration 800 Amount Sodium Chloride 0.9% 1, 600 000 ml @ 50 mls/hr IV . Q20H [facility]ALIA Rx#:[id number] ceFAZolin 2 gm In Sodium 200 Chloride 0.9% 50 ml @ 100 mls/hr IVPB Q8H AMALIA Rx#: [id number] Oral 850 480 Output: Urine 500 Other: Voiding Method Toilet Toilet Urinal Urinal # Voids 3 1 # Bowel Movements 1 - Exam GENERAL: The patient is alert and oriented x3, not in any acute distress. Well developed, well nourished. HEENT: Pupils are round and equally reacting to light. EOMI. No scleral icterus. No conjunctival pallor. Normocephalic, atraumatic. No pharyngeal erythema. No thyromegaly. CARDIOVASCULAR: S1 and S2 present. No murmurs, rubs, or gallops. PULMONARY: Chest is clear to auscultation, no wheezing or crackles. ABDOMEN: Soft, nontender, nondistended, normoactive bowel sounds. No palpable organomegaly. MUSCULOSKELETAL: No joint swelling or deformity. EXTREMITIES: No cyanosis, clubbing, mild left pedal edema noted on exam NEUROLOGICAL: Gross neurological examination did not reveal any focal deficits. SKIN: Extensive cellulitis of the left leg involving the whole left leg with skin breakdown and ulceration predominantly in the posterior aspect extensive erythema, slightly improved - Labs CBC & Chem 7: 06/05/20 08:26 06/08/20 05:55 Labs: Abnormal Lab Results - Last 24 Hours (Table) 06/07/20 06/07/20 06/08/20 Range/Units 17:04 19:47 05:55 Creatinine 1.6 H (0.6-1.5) mg/dL Est GFR (CKD-EPI)AfAm 54.6 L (60.0-200.0) Est GFR (CKD-EPI)NonAf 47.1 L (60.0-200.0) Glucose 126 H (70-110) mg/dL POC Glucose (mg/dL) 268 H 268 H (75-99) mg/dL Calcium 8.5 L (8.7-10.3) mg/dL 06/08/20 06/08/20 Range/Units 07:24 11:19 Creatinine (0.6-1.5) mg/dL Est GFR (CKD-EPI)AfAm (60.0-200.0) Est GFR (CKD-EPI)NonAf (60.0-200.0) Glucose (70-110) mg/dL POC Glucose (mg/dL) 161 H 187 H (75-99) mg/dL Calcium (8.7-10.3) mg/dL Microbiology - Last 24 Hours (Table) 06/04/20 18:23 Blood Culture - Preliminary Blood No Growth after 72 hours 06/05/20 12:21 Anaerobic Culture - Preliminary Leg - Left Assessment and Plan Assessment: -Extensive cellulitis, secondary ulceration diabetic foot infection: Patient was started on cefazolin infectious disease following. Cultures preliminary showing beta-hemolytic strep group G and will await finalization -Sepsis: Secondary to cellulitis as mentioned above -Hypovolemic hyponatremia IV fluids will be started, continue with IV fluids and monitor and repeat labs in the morning, nephrology following -Acute renal failure possibly of chronic kidney disease cannot be ruled out chronic chronic kidney disease at this time acute renal failure is probably secondary to prerenal azotemia nephrotoxic agents will be held including hydro chlorothiazide, BRYN inhibitor continue with IV fluids. -Essential hypertension elevated blood pressure, hypertensive urgency: For which patient was started on amlodipine continue with as needed by mouth hydralazine -Type 2 diabetes mellitus -Hyperlipidemia -DVT prophylaxis with heparin subcutaneous -depression Plan: Continue local wound care, infectious disease is following and IV antibiotics humphreys ve been changed to cefazolin waiting for culture finalization. Nephrology also following and will continue gentle IV hydration and will repeat a.m. labs. Her son ordered and currently pending. Further recommendations to follow.
--- NOTE | 2020-06-09 01:03 | PN ---
PROGRESS NOTE DATE OF SERVICE: 06/08/2020 REASON FOR FOLLOWUP: Left lower extremity cellulitis. INTERVAL HISTORY: The patient is currently afebrile. Patient is breathing comfortably. Denies having any chest pain. No shortness of breath or cough. No nausea, no vomiting. No abdominal pain. Overall pain and discomfort to the left leg has improved. PHYSICAL EXAMINATION: Blood pressure 157/83, pulse of 69, temperature 98.3. He is 96% on room air. General description is a middle-aged male lying in bed in no distress. RESPIRATORY SYSTEM: Unlabored breathing, clear to auscultation anteriorly. HEART: S1, S2. Regular rate and rhythm. ABDOMEN: Soft, no tenderness. Left leg dressed up this morning and this dressing was . There was no drainage on the dressing. LABS: Creatinine is 1.6. Blood culture negative. Left leg with beta hemolytic strep group G. DIAGNOSTIC IMPRESSION AND PLAN: Patient with acute left lower extremity cellulitis with group G strep. Patient clinically responded to cefazolin 2 grams q.8. Will re-evaluate the leg wound tomorrow and if it did show overall improvement, hopefully finish therapy with oral Keflex. Continue supportive care. MMODL / IJN: [id number] /
[2020-06-09 07:14] LABS: Glucose,Whole Blood 215 mg/dL (75-99)
[2020-06-09 07:56] VITALS: RESP 18
[2020-06-09] MEDS: HYDROcodone/APAP 5-325MG 1 EACH TAB PO PRN (09:06)
[2020-06-09] MEDS: INSULIN ASPART (NovoLOG) 100 UNIT/ML VIAL SQ SCH ×2 (09:08→11:42)
[2020-06-09] MEDS: HEPARIN SODIUM,PORCINE 5,000 UNIT/ML 1 ML VIAL SQ SCH (09:08)
[2020-06-09] MEDS: ASPIRIN 325 MG TAB PO SCH (09:09)
[2020-06-09] MEDS: METOPROLOL SUCCINATE (ER) 25 MG TAB.ER.24H PO SCH (09:09)
[2020-06-09] MEDS: FAMOTIDINE 20 MG TAB PO SCH (09:09)
[2020-06-09] MEDS: hydrALAZINE HCL 50 MG TAB PO SCH (09:09)
[2020-06-09] MEDS: FENOFIBRATE 160 MG TAB PO SCH (09:09)
[2020-06-09] MEDS: EZETIMIBE 10 MG TAB PO SCH (09:09)
[2020-06-09] MEDS: MAGNESIUM OXIDE 400 MG TAB PO SCH (09:10)
[2020-06-09] MEDS: amLODIPine 10 MG TAB PO SCH (09:10)
[2020-06-09] MEDS: ESCITALOPRAM 5 MG TAB PO SCH (10:02)
[2020-06-09 11:26] LABS: Glucose,Whole Blood 234 mg/dL (75-99)
--- NOTE | 2020-06-09 13:00 | P.PN ---
Subjective Patient is seen in follow-up for acute kidney injury. Creatinine 1.6 as of yesterday. Oral intake is good. No vomiting or diarrhea. Good urine output. Blood pressure on the higher side. Vital signs are stable. General: The patient appeared well nourished and normally developed. HEENT: Head exam is unremarkable. Neck is without jugular venous distension. LUNGS: Breath sounds decreased. HEART: Rate and Rhythm are regular. ABDOMEN: Soft, nontender. EXTREMITITES: No edema. no drainage noted. Objective - Vital Signs Vital signs: Vital Signs Temp 98.0 F 06/09/20 07:55 Pulse 68 06/09/20 07:55 Resp 18 06/09/20 07:55 BP 186/96 06/09/20 07:55 Pulse Ox 97 06/09/20 07:55 Intake & Output 06/08/20 06/09/20 06/09/20 18:59 06:59 18:59 Intake Total 200 Balance 200 Intake: Oral 200 Other: Voiding Method Toilet Toilet Urinal Urinal # Voids 2 1 # Bowel Movements 1 - Labs CBC & Chem 7: 06/05/20 08:26 06/08/20 05:55 Labs: Abnormal Lab Results - Last 24 Hours (Table) 06/08/20 06/08/20 06/09/20 Range/Units 16:53 20:50 07:13 POC Glucose (mg/dL) 253 H 230 H 215 H (75-99) mg/dL 06/09/20 Range/Units 11:24 POC Glucose (mg/dL) 234 H (75-99) mg/dL Microbiology - Last 24 Hours (Table) 06/05/20 12:21 Anaerobic Culture - Final Leg - Left 06/04/20 18:23 Blood Culture - Preliminary Blood No Growth after 96 hours Assessment and Plan Plan: Assessment: 1. Acute kidney injury mostly prerenal secondary to infection. Creatinine 1.6 as of yesterday. No hydronephrosis noted on kidney ultrasound. 2. Rule out chronic kidney disease. 3. Diabetes mellitus. 4. Benign hypertension. 5. Left lower extremity cellulitis maintained on antibiotics. Infectious disease following. Plan: Hep-Lock IV fluids. Increase hydralazine 200 mg 3 times daily. Check urinalysis. Avoid nephrotoxins. Patient will need to follow up outpatient to establish CKD care.
--- NOTE | 2020-06-09 14:00 | P.PN ---
Subjective Progress Note Date: 06/09/20 HISTORY OF PRESENT ILLNESS This is a 55-year-old male patient admitted to the hospital for left lower extremity cellulitis. The patient has been afebrile, hemodynamically stable. He denies having any chest pain or shortness of breath. No cough. No abdominal pain, nausea or vomiting. Left leg has improved significantly since admission. He has been treated with 2 g IV every 8 hours. Wound culture is beta-hemolytic strep group B. PHYSICAL EXAMINATION Gen: This is a 55-year-old male. Patient is resting in chair and appears to be comfortable and in no acute distress. HEENT: Head is atraumatic, normocephalic. Pupils equal, round. Sclerae is anicteric. NECK: Supple. No JVD. LUNGS: Clear to auscultation. No wheezes or rhonchi. No intercostal retractions. HEART: Regular rate and rhythm. No murmur. ABDOMEN: Soft. Bowel sounds are present. No masses. No tenderness. EXTREMITIES: No pedal edema. No calf tenderness. Left leg dressing removed. No drainage. There is decreased erythema. NEUROLOGICAL: Patient is awake, alert and oriented x3. ASSESSMENT Left lower extremity cellulitis PLAN Plan for Keflex 500 mg oral every 6 hours for 10 days Follow-up: The wound Center at [facility] The above dictated assessment and findings were discussed with Dr. Harper. The impression and plan of care have been directed as dictated. Berta Calloway nurse practitioner acting as scribe for Dr. Harper. Objective - Vital Signs Vital signs: Vital Signs Temp 98.0 F 06/09/20 07:55 Pulse 68 06/09/20 07:55 Resp 18 06/09/20 07:55 BP 186/96 06/09/20 07:55 Pulse Ox 97 06/09/20 07:55 Intake & Output 06/08/20 06/09/20 06/09/20 18:59 06:59 18:59 Intake Total 200 Balance 200 Intake: Oral 200 Other: Voiding Method Toilet Toilet Urinal Urinal # Voids 2 1 # Bowel Movements 1 - Labs CBC & Chem 7: 06/05/20 08:26 06/08/20 05:55 Labs: Abnormal Lab Results - Last 24 Hours (Table) 06/08/20 06/08/20 06/08/20 Range/Units 11:19 16:53 20:50 POC Glucose (mg/dL) 187 H 253 H 230 H (75-99) mg/dL 06/09/20 06/09/20 Range/Units 07:13 11:24 POC Glucose (mg/dL) 215 H 234 H (75-99) mg/dL Microbiology - Last 24 Hours (Table) 06/04/20 18:23 Blood Culture - Preliminary Blood No Growth after 96 hours
[2020-06-09 14:28] VITALS: BP 164/77; PULSE 65; TEMP 98.5
[2020-06-09] MEDS ORDERED: hydrALAZINE HCL 50 MG TAB PO SCH (16:00)
== END 2020-06-09 14:45 | disposition home health service (06) | DRG 871 ==
LOC: EC 17:02 → 5NMEDONC 19:25
PROVIDERS: ADMIT Internal Medicine; ATTEND Internal Medicine
DX: A40.8 Other streptococcal sepsis (principal); N17.0 Acute kidney failure with tubular necrosis; L03.116 Cellulitis of left lower limb; E87.1 Hypo-osmolality and hyponatremia; E87.3 Alkalosis; L97.929 Non-pressure chronic ulcer of unspecified part of left lower leg with unspecified severity; E78.5 Hyperlipidemia, unspecified; E11.22 Type 2 diabetes mellitus with diabetic chronic kidney disease; N18.9 Chronic kidney disease, unspecified; I12.9 Hypertensive chronic kidney disease with stage 1 through stage 4 chronic kidney disease, or unspecified chronic kidney disease; F32.9 Major depressive disorder, single episode, unspecified; E86.1 Hypovolemia; E11.628 Type 2 diabetes mellitus with other skin complications; E11.622 Type 2 diabetes mellitus with other skin ulcer; I16.0 Hypertensive urgency; Z88.0 Allergy status to penicillin; Z79.899 Other long term (current) drug therapy; Z79.82 Long term (current) use of aspirin
CPT/HCPCS: 36415; 76770; 80048; 80053; 83605; 85025; 85610; 85730; 86140; 87040; 87070; 87075; 87205; 96365; 96366; 96375; 99284

== ENCOUNTER 2022-03-08 16:02 | Inpatient (IN) | payer OTHER ==
[2022-03-08] MEDS ORDERED: ONDANSETRON 4 MG/2 ML VIAL IVP STA (21:07)
[2022-03-08] MEDS ORDERED: AMPICILLIN-SULBACTAM 3 GM in SODIUM CHLORIDE 0.9% 100 ML IVPB STA (21:07)
[2022-03-08] MEDS ORDERED: SODIUM CHLORIDE 0.9% 1,000 ML IV STA (21:07)
[2022-03-08] MEDS ORDERED: VANCOMYCIN IV PER PHARMACY 1 EACH MISC MISCELLANE PRN (21:07)
[2022-03-08] MEDS ORDERED: MORPHINE SULFATE 4 MG/ML SYRINGE IV STA (21:07)
--- NOTE | 2022-03-08 21:16 | ED ---
Extremity Problem HPI - General Chief complaint: Extremity Problem,Nontraumatic Stated complaint: infection in leg Time Seen by Provider: 03/08/22 21:00 Source: patient, RN notes reviewed Mode of arrival: ambulatory Limitations: no limitations - History of Present Illness Initial comments: This is a pleasant 56-year-old diabetic male who presents to the emergency department with worsening infectious process of the right foot. Patient was seen at [facility] about 9 days ago was put on Bactrim. This was then switched by his regular doctor to Keflex and doxycycline. Despite antibiotic treatment patient's getting worse. He saw his medical biller/coder, Dr. Melo today prior to arrival and had some debridement and incision and drainage done. He was then sent here for admission. Note that the patient has not had a fever. Patient is diabetic. Apparently the blood sugars up and running accordingly. No headache, no fever or chills, no changes in vision or hearing, no sore throat or difficulty with speech, no neck pain, no chest pain or shortness of breath, no abdominal pain, no nausea or vomiting, no changes in urination or bowel movements, no numbness or tingling, foot ulceration as indicated in the physical examination. Past medical, surgical, social, and family history reviewed. - Related Data Home Medications Medication Instructions Recorded Confirmed Arginine [l-Arginine] 500 mg PO DAILY 06/04/20 06/04/20 Aspirin EC [Ecotrin] 325 mg PO DAILY 06/04/20 06/04/20 Cinnamon Bark [Cinnamon] 500 mg PO DAILY 06/04/20 06/04/20 Ergocalciferol [Vitamin D2 50,000 unit PO MOFR 06/04/20 06/04/20 (DRISDOL)] Escitalopram [Lexapro] 5 mg PO DAILY 06/04/20 06/04/20 Ezetimibe [Zetia] 10 mg PO DAILY 06/04/20 06/04/20 Fenofibrate Nanocrystallized 145 mg PO DAILY 06/04/20 06/04/20 [Tricor] Insulin Glargine,Hum.rec.anlog 90 units SQ DAILY 06/04/20 06/04/20 [Marlen Ching] Liraglutide [Victoza 3-Jimmy] 1.8 mg SQ DAILY 06/04/20 06/04/20 Magnesium 200 mg PO DAILY 06/04/20 06/04/20 Metoprolol Succinate [Toprol XL] 75 mg PO BID 06/04/20 06/04/20 Multivitamins, Thera [Multivitamin 1 tab PO DAILY 06/04/20 06/04/20 (formulary)] Ubidecarenone [Co Q-10] 100 mg PO DAILY 06/04/20 06/04/20 hydroCHLOROthiazide [Hydrodiuril] 25 mg PO DAILY 06/04/20 06/04/20 Previous Rx's Medication Instructions Recorded amLODIPine [Norvasc] 10 mg PO DAILY #30 tab 06/09/20 cephALEXin [Keflex] 500 mg PO Q6HR 10 Days #40 cap 06/09/20 hydrALAZINE HCL [Apresoline] 100 mg PO TID #180 tab 06/09/20 Allergies Allergy/AdvReac Type Severity Reaction Status Date / Time Penicillins Allergy Unknown Verified 03/08/22 16:58 Review of Systems ROS Statement: Those systems with pertinent positive or pertinent negative responses have been documented in the HPI. ROS Other: All systems not noted in ROS Statement are negative. Past Medical History Past Medical History: Diabetes Mellitus, Hyperlipidemia, Hypertension History of Any Multi-Drug Resistant Organisms: None Reported Additional Past Surgical History / Comment(s): cataract surgery Past Psychological History: No Psychological Hx Reported Smoking Status: Never smoker Past Alcohol Use History: None Reported Past Drug Use History: None Reported General Exam - General Exam Comments Initial Comments: Patient does not appear to be systemically ill or toxic Limitations: no limitations General appearance: alert, in no apparent distress Head exam: Present: atraumatic, normocephalic, normal inspection Eye exam: Present: normal appearance, PERRL, EOMI. Absent: scleral icterus, conjunctival injection, periorbital swelling ENT exam: Present: normal exam, mucous membranes moist Neck exam: Present: normal inspection, full ROM. Absent: tenderness, meningismus, lymphadenopathy Respiratory exam: Present: normal lung sounds bilaterally. Absent: respiratory distress, wheezes, rales, rhonchi, stridor, chest wall tenderness, accessory muscle use Cardiovascular Exam: Present: regular rate, normal rhythm, normal heart sounds. Absent: systolic murmur, diastolic murmur, rubs, gallop, clicks GI/Abdominal exam: Present: soft, normal bowel sounds. Absent: distended, tenderness, guarding, rebound, rigid Extremities exam: Present: full ROM, tenderness (Plantar aspirin), normal capillary refill, other (Patient has ulceration affecting the plaster aspect of his right foot with surrounding erythema consistent with diabetic foot infection.). Absent: normal inspection, pedal edema, joint swelling, calf tenderness Back exam: Present: normal inspection Neurological exam: Present: alert, oriented X3, CN II-XII intact Psychiatric exam: Present: normal affect, normal mood Skin exam: Present: warm, dry, intact, normal color. Absent: rash Course Vital Signs 03/08/22 03/08/22 16:54 21:13 Temperature 98 F Pulse Rate 71 63 Respiratory 16 18 Rate Blood Pressure 102/61 134/67 O2 Sat by Pulse 97 98 Oximetry - Consultations Consultation #1: Case discussed in detail with Dr. altman from EMS. Patient admitted to that service. Infectious disease consultation will be made. Medical Decision Making - Medical Decision Making Presents with symptomology consistent with diabetic foot infection. Will require admission. Note that the patient was seen at another facility 9 days ago. However there was no wound culture done there. We'll obtain these here. Plain film x-rays. We'll start with vancomycin and Unasyn. Note that this is outpatient treatment failure. Patient admitted for diabetic foot infection. Patient sent to the ER by his medical biller/coder for admission. Admitted to EMS. Attestation Supervising Dr. Villalba Disposition Clinical Impression: Diabetic infection of right foot Disposition: ADMITTED IP TO THIS HOSP Condition: Stable Referrals: Allan Domínguez MD [Primary Care Provider] - 1-2 days Time of Disposition: 21:09 Decision to Admit Reason: Admit from [facility] Decision Time: 21:09
[2022-03-08] MEDS ORDERED: NALOXONE 0.4 MG/ML 1 ML VIAL IV PRN (21:31)
[2022-03-08] MEDS ORDERED: MORPHINE SULFATE 4 MG/ML SYRINGE IV PRN (21:31)
[2022-03-08] MEDS ORDERED: DEXTROSE 50% SYRINGE 50 ML IVP PRN ×2 (21:34)
[2022-03-08] MEDS ORDERED: VANCOMYCIN 2,250 MG in SODIUM CHLORIDE 0.9% 500 ML 500 ML IVPB ONE (22:00)
[2022-03-08] MEDS: SODIUM CHLORIDE 0.9% 1,000 ML IV SCH (22:02)
[2022-03-08 22:04] LABS: Basophils # (A) 0.1 k/uL (0-0.2); Basophils % (A) 1 %; Eosinophils # (A) 0.3 k/uL (0-0.7); Eosinophils % (A) 2 %; HCT 37.5 % (39.0-53.0); Lymphocytes # (A) 2.3 k/uL (1.0-4.8); Lymphocytes % (A) 14 %; MCH 27.9 pg (25.0-35.0); MCHC 31.9 g/dL (31.0-37.0); MCV 87.4 fL (80.0-100.0); Mean Platelet Volume 8.3; Monocytes # (A) 0.7 k/uL (0-1.0); Monocytes % (A) 4 %; Neutrophils # (A) 12.3 k/uL (1.3-7.7); Neutrophils % (A) 77 %; Platelet Count 278 k/uL (150-450); RBC 4.29 m/uL (4.30-5.90); RDW 12.1 % (11.5-15.5); WBC 15.9 k/uL (3.8-10.6)
--- NOTE | 2022-03-08 22:11 | XR ---
EXAMINATION TYPE: XR foot complete RT DATE OF EXAM: 03/08/2022 COMPARISON: NONE HISTORY: Foot infection TECHNIQUE: 3 views FINDINGS: Metatarsals appear intact. There is soft tissue swelling over the forefoot. The toes appear intact. No definite focal bone destruction. There is vascular calcification. IMPRESSION: Soft tissue swelling. No definite sign of osteomyelitis.
[2022-03-08 22:21] LABS: Albumin 3.8 g/dL (3.5-5.0); Calcium 9.1 mg/dL (8.4-10.2); Potassium 4.9 mmol/L (3.5-5.1); Total Bilirubin 0.2 mg/dL (0.2-1.3); Total Protein 7.8 g/dL (6.3-8.2)
[2022-03-08 22:49] LABS: Erythrocyte Sedimentation Rate 97 mm/hr (0-15)
[2022-03-09 05:46] LABS: Basophils % (A) 0 %; Eosinophils # (A) 0.3 k/uL (0-0.7); Eosinophils % (A) 3 %; HCT 36.3 % (39.0-53.0); HGB 11.6 gm/dL (13.0-17.5); Lymphocytes # (A) 2.2 k/uL (1.0-4.8); Lymphocytes % (A) 21 %; MCH 28.2 pg (25.0-35.0); MCHC 31.9 g/dL (31.0-37.0); MCV 88.2 fL (80.0-100.0); Mean Platelet Volume 8.3; Monocytes # (A) 0.5 k/uL (0-1.0); Monocytes % (A) 5 %; Neutrophils % (A) 68 %; Platelet Count 270 k/uL (150-450); RBC 4.11 m/uL (4.30-5.90); RDW 12.5 % (11.5-15.5); WBC 10.2 k/uL (3.8-10.6)
[2022-03-09] MEDS: HEPARIN SODIUM,PORCINE/PF 5,000 UNIT/0.5 ML SYRINGE SQ SCH ×3 (05:50→15:05)
[2022-03-09 06:10] LABS: Albumin 3.3 g/dL (3.5-5.0); Calcium 8.8 mg/dL (8.4-10.2); Potassium 4.8 mmol/L (3.5-5.1); Total Bilirubin 0.3 mg/dL (0.2-1.3)
[2022-03-09 08:25] LABS: Glucose,Whole Blood 198 mg/dL (70-110)
[2022-03-09 08:29] LABS: Estimated Average Glucose CANCELED
[2022-03-09] MEDS: INSULIN ASPART (NovoLOG) 100 UNIT/ML VIAL SQ SCH ×4 (08:33→21:50)
[2022-03-09] MEDS: MULTIVITAMINS, THERA 1 EACH TAB PO SCH (08:33)
[2022-03-09] MEDS: METOPROLOL SUCCINATE (ER) 50 MG TAB.ER.24H PO SCH ×2 (08:34→21:55)
[2022-03-09] MEDS ORDERED: hydroCHLOROthiazide 25 MG TAB PO SCH (09:00)
[2022-03-09] MEDS ORDERED: HYDROcodone/APAP 7.5-325MG 1 EACH TAB PO PRN (11:33)
[2022-03-09 11:46] LABS: Glucose,Whole Blood 232 mg/dL (70-110)
[2022-03-09] MEDS ORDERED: DAPTOmycin 500 MG in SODIUM CHLORIDE 0.9% 50 ML IVPB SCH (12:00)
--- NOTE | 2022-03-09 12:21 | P.HPIM ---
History of Present Illness 56-year-old male came in with complains of worsening right foot infection patient has a callus and a bony spur in the on the plantar surface of the right foot in the mid foot area. Patient was started on Bactrim by his physician margaret ch was discontinued couple days ago and patient was started on Keflex and doxycycline without any improvement patient was seen by bean snipper who sent him to ER. Patient is found to be in acute renal failure patient was started on vancomycin which will be switched to daptomycin because of poor function patient does have redness and infection in the web spaces as well predominantly between fourth and fifth toes. Patient baseline creatinine appears to be 1.6 and patient the creatinine on admission was 4.5. Wound cultures were obtained patient doesn't have any fever. Had leukocytosis on admission which is improving at this time patient was on IV fluids. Patient was hyponatremic as well. As per the previous history patient doesn't appear to have any CHF but is on Demadex. Patient is bit hypotensive as well. REVIEW OF SYSTEMS: CONSTITUTIONAL: No fever, no malaise, no fatigue. HEENT: No recent visual problems or hearing problems. Denied any sore throat. CARDIOVASCULAR: No chest pain, orthopnea, PND, no palpitations, no syncope. PULMONARY: No shortness of breath, no cough, no hemoptysis. GASTROINTESTINAL: No diarrhea, no nausea, no vomiting, no abdominal pain. NEUROLOGICAL: No headaches, no weakness, no numbness. HEMATOLOGICAL: Denies any bleeding or petechiae. GENITOURINARY: Denies any burning micturition, frequency, or urgency. MUSCULOSKELETAL/RHEUMATOLOGICAL: As mentioned in HPI ENDOCRINE: Denies any polyuria or polydipsia. The rest of the 14-point review of systems is negative. PHYSICAL EXAMINATION: GENERAL: The patient is alert and oriented x3, not in any acute distress. Well developed, well nourished. HEENT: Pupils are round and equally reacting to light. EOMI. No scleral icterus. No conjunctival pallor. Normocephalic, atraumatic. No pharyngeal erythema. No thyromegaly. CARDIOVASCULAR: S1 and S2 present. No murmurs, rubs, or gallops. PULMONARY: Chest is clear to auscultation, no wheezing or crackles. ABDOMEN: Soft, nontender, nondistended, normoactive bowel sounds. No palpable organomegaly. MUSCULOSKELETAL: No joint swelling or deformity. EXTREMITIES: No cyanosis, clubbing, or pedal edema. NEUROLOGICAL: Gross neurological examination did not reveal any focal deficits. SKIN: Cellulitis and redness with the wound and bony spur in the right mid plantar foot with right foot web space infection. Assessment and plan -Right foot cellulitis and wound infection: Patient will be switched to daptomycin because of poor renal function, infectious disease was consulted. Patient will be monitored wound cultures were obtained -Acute renal failure on chronic kidney disease stage III acute renal failure probably secondary to probably Bactrim along with diuretics as well as hypotension and evidence medications will be held and diuretics will be held, patient will be continued on IV fluids Bactrim is being held at this time. -Type 2 diabetes mellitus and diabetic foot infection long-acting and insulin will be continued with sliding scale other diabetic medications will be held next -Hypertension patient is presently hypotensive hold of an aneurysm medications. - DVT prophylaxis: Subcutaneous heparin Past Medical History Past Medical History: Diabetes Mellitus, Hyperlipidemia, Hypertension History of Any Multi-Drug Resistant Organisms: None Reported Additional Past Surgical History / Comment(s): cataract surgery Past Psychological History: No Psychological Hx Reported Smoking Status: Never smoker Past Alcohol Use History: None Reported Past Drug Use History: None Reported Medications and Allergies Home Medications Medication Instructions Recorded Confirmed Type Arginine [l-Arginine] 1,000 mg PO BID 06/04/20 03/08/22 History Aspirin EC [Ecotrin] 325 mg PO DAILY 06/04/20 03/08/22 History Cinnamon Bark [Cinnamon] 1,000 mg PO BID 06/04/20 03/08/22 History Ergocalciferol [Vitamin D2 50,000 unit PO WE 06/04/20 03/08/22 History (DRISDOL)] Escitalopram [Lexapro] 5 mg PO DAILY 06/04/20 03/08/22 History Ezetimibe [Zetia] 10 mg PO DAILY 06/04/20 03/08/22 History Insulin Glargine,Hum.rec.anlog 95 units SQ DAILY 06/04/20 03/08/22 History [Marlen Ching] Liraglutide [Victoza 3-Jimmy] 1.8 mg SQ DAILY 06/04/20 03/08/22 History Ubidecarenone [Co Q-10] 100 mg PO DAILY 06/04/20 03/08/22 History Acetaminophen-Codeine 300-30mg 1 tab PO Q6H PRN 03/08/22 03/08/22 History [Tylenol w/codeine #3] Dapagliflozin Propanediol [Farxiga] 5 mg PO DAILY 03/08/22 03/08/22 History Doxycycline Hyclate 100 mg PO BID 03/08/22 03/08/22 History Fish Oil/Dha/Epa [Fish Oil 1,200 1 cap PO BID 03/08/22 03/08/22 History mg Fish Oil] Garlic 1,000 mg PO BID 03/08/22 03/08/22 History Labetalol HCl 200 mg PO BID 03/08/22 03/08/22 History Terazosin HCl 2 mg PO BID 03/08/22 03/08/22 History Torsemide [Demadex] 40 mg PO DAILY 03/08/22 03/08/22 History Turmeric Root Extract [Turmeric] 500 mg PO BID 03/08/22 03/08/22 History Zinc Gluconate [Zinc] 50 mg PO DAILY 03/08/22 03/08/22 History calcitrioL [Rocaltrol] 0.25 mcg PO Q48H 03/08/22 03/08/22 History hydrALAZINE HCL [Apresoline] 100 mg PO BID 03/08/22 03/08/22 History Allergies Allergy/AdvReac Type Severity Reaction Status Date / Time Penicillins Allergy Unknown Verified 03/08/22 22:50 Childhood Physical Exam Vitals: Vital Signs Temp Pulse Resp BP Pulse Ox 03/09/22 12:00 16 03/09/22 11:21 98.1 F 69 16 106/72 100 03/09/22 09:44 96.8 F L 70 16 136/76 99 03/09/22 08:37 97 03/09/22 08:31 98 F 72 16 129/76 97 03/09/22 07:28 16 03/09/22 06:23 64 14 122/82 95 03/09/22 00:06 67 18 137/97 95 03/08/22 21:13 63 18 134/67 98 03/08/22 16:54 98 F 71 16 102/61 97 Intake and Output 03/08/22 03/09/22 03/09/22 22:59 06:59 14:59 Other: Weight 117.934 kg Results CBC & Chem 7: 03/09/22 05:08 03/09/22 05:08 Labs: Abnormal Lab Results - Last 24 Hours (Table) 03/08/22 03/08/22 03/09/22 Range/Units 21:45 21:45 05:08 WBC 15.9 H (3.8-10.6) k/uL RBC 4.29 L 4.11 L (4.30-5.90) m/uL Hgb 12.0 L 11.6 L (13.0-17.5) gm/dL Hct 37.5 L 36.3 L (39.0-53.0) % Neutrophils # 12.3 H (1.3-7.7) k/uL ESR 97 H (0-15) mm/hr Sodium 133 L (137-145) mmol/L Chloride 94 L (98-107) mmol/L BUN 55 H (9-20) mg/dL Creatinine 4.04 H (0.66-1.25) mg/dL Glucose 209 H (74-99) mg/dL POC Glucose (mg/dL) (70-110) mg/dL C-Reactive Protein 6.0 H (<1.0) mg/dL Albumin (3.5-5.0) g/dL 03/09/22 03/09/22 03/09/22 Range/Units 05:08 08:23 11:44 WBC (3.8-10.6) k/uL RBC (4.30-5.90) m/uL Hgb (13.0-17.5) gm/dL Hct (39.0-53.0) % Neutrophils # (1.3-7.7) k/uL ESR (0-15) mm/hr Sodium 135 L (137-145) mmol/L Chloride 97 L (98-107) mmol/L BUN 53 H (9-20) mg/dL Creatinine 3.84 H (0.66-1.25) mg/dL Glucose 236 H (74-99) mg/dL POC Glucose (mg/dL) 198 H 232 H (70-110) mg/dL C-Reactive Protein (<1.0) mg/dL Albumin 3.3 L (3.5-5.0) g/dL Microbiology - Last 24 Hours (Table) 03/08/22 22:20 Anaerobic Culture - Preliminary Foot - Right 03/08/22 22:20 Wound Culture - Preliminary Foot - Right
[2022-03-09] MEDS: traMADol 50 MG TAB PO PRN (17:01)
[2022-03-09 17:43] LABS: Glucose,Whole Blood 251 mg/dL (70-110)
--- NOTE | 2022-03-09 20:11 | P.GSCN ---
History of Present Illness Consult date: 03/09/22 Reason for Consult: Diabetic foot wound. History of present illness: Patient is a 56-year-old male who presented today with purulent drainage from the plantar surface of his right foot. The patient is a greater than 30 year history of diabetes mellitus. His indicates that he may have stepped on a belt a few weeks ago. He began to develop a wound and was seen in the emergency room. He was also seen by his primary care physician as well as a diet wrist. Apparently there was an attempt at drainage of this abscess/foot wound. The patient presented for further evaluation and treatment. He denies any chills or fevers. There is no history of claudication type symptoms. The patient is a former smoker quitting many years prior. He denies any previous cardiac or neurologic event. He does complain of diabetic type paresthesias of the feet. Past Medical History Past Medical History: Diabetes Mellitus, Hyperlipidemia, Hypertension History of Any Multi-Drug Resistant Organisms: None Reported Additional Past Surgical History / Comment(s): cataract surgery Past Psychological History: No Psychological Hx Reported Smoking Status: Never smoker Past Alcohol Use History: None Reported Past Drug Use History: None Reported Medications and Allergies Home Medications Medication Instructions Recorded Confirmed Type Arginine [l-Arginine] 1,000 mg PO BID 06/04/20 03/08/22 History Aspirin EC [Ecotrin] 325 mg PO DAILY 06/04/20 03/08/22 History Cinnamon Bark [Cinnamon] 1,000 mg PO BID 06/04/20 03/08/22 History Ergocalciferol [Vitamin D2 50,000 unit PO WE 06/04/20 03/08/22 History (DRISDOL)] Escitalopram [Lexapro] 5 mg PO DAILY 06/04/20 03/08/22 History Ezetimibe [Zetia] 10 mg PO DAILY 06/04/20 03/08/22 History Insulin Glargine,Hum.rec.anlog 95 units SQ DAILY 06/04/20 03/08/22 History [Marlen Ching] Liraglutide [Victoza 3-Jimmy] 1.8 mg SQ DAILY 06/04/20 03/08/22 History Ubidecarenone [Co Q-10] 100 mg PO DAILY 06/04/20 03/08/22 History Acetaminophen-Codeine 300-30mg 1 tab PO Q6H PRN 03/08/22 03/08/22 History [Tylenol w/codeine #3] Dapagliflozin Propanediol [Farxiga] 5 mg PO DAILY 03/08/22 03/08/22 History Doxycycline Hyclate 100 mg PO BID 03/08/22 03/08/22 History Fish Oil/Dha/Epa [Fish Oil 1,200 1 cap PO BID 03/08/22 03/08/22 History mg Fish Oil] Garlic 1,000 mg PO BID 03/08/22 03/08/22 History Labetalol HCl 200 mg PO BID 03/08/22 03/08/22 History Terazosin HCl 2 mg PO BID 03/08/22 03/08/22 History Torsemide [Demadex] 40 mg PO DAILY 03/08/22 03/08/22 History Turmeric Root Extract [Turmeric] 500 mg PO BID 03/08/22 03/08/22 History Zinc Gluconate [Zinc] 50 mg PO DAILY 03/08/22 03/08/22 History calcitrioL [Rocaltrol] 0.25 mcg PO Q48H 03/08/22 03/08/22 History hydrALAZINE HCL [Apresoline] 100 mg PO BID 03/08/22 03/08/22 History Allergies Allergy/AdvReac Type Severity Reaction Status Date / Time Penicillins Allergy Unknown Verified 03/08/22 22:50 Childhood Surgical - Exam Osteopathic Statement: *. No significant issues noted on an osteopathic structural exam other than those noted in the History and Physical/Consult. Vital Signs Temp Pulse Resp BP Pulse Ox 98 F 71 16 102/61 97 03/08/22 16:54 03/08/22 16:54 03/08/22 16:54 03/08/22 16:54 03/08/22 16:54 - General well developed, well nourished, no distress - Neck no masses, no bruits - Respiratory normal expansion, normal respiratory effort - Cardiovascular Rhythm: regular Femoral, popliteal, DP and PT pulses are intact bilaterally. The right foot has a wound on the plantar surface which appears to be quite large sharply linear consistent with previous incision and drainage. Additionally there is purulent drainage coming from the fifth metatarsal head on the dorsal surface of the foot. I reviewed the x-rays. There is no evidence of gas-forming event. Had a long discussion with the patient and his . This is clearly a problem related to diabetic neuropathy and diabetic vascular disease. Patient will require incision and drainage. This be scheduled to be performed tomorrow March 10. In the interim is to continue on IV antibiotic therapy. Results - Labs 03/09/22 05:08 03/09/22 05:08 Abnormal Lab Results - Last 24 Hours (Table) 03/08/22 03/08/22 03/09/22 Range/Units 21:45 21:45 05:08 WBC 15.9 H (3.8-10.6) k/uL RBC 4.29 L 4.11 L (4.30-5.90) m/uL Hgb 12.0 L 11.6 L (13.0-17.5) gm/dL Hct 37.5 L 36.3 L (39.0-53.0) % Neutrophils # 12.3 H (1.3-7.7) k/uL ESR 97 H (0-15) mm/hr Sodium 133 L (137-145) mmol/L Chloride 94 L (98-107) mmol/L BUN 55 H (9-20) mg/dL Creatinine 4.04 H (0.66-1.25) mg/dL Glucose 209 H (74-99) mg/dL POC Glucose (mg/dL) (70-110) mg/dL Hemoglobin A1c (0.0-6.0) % C-Reactive Protein 6.0 H (<1.0) mg/dL Albumin (3.5-5.0) g/dL 03/09/22 03/09/22 03/09/22 Range/Units 05:08 05:08 08:23 WBC (3.8-10.6) k/uL RBC (4.30-5.90) m/uL Hgb (13.0-17.5) gm/dL Hct (39.0-53.0) % Neutrophils # (1.3-7.7) k/uL ESR (0-15) mm/hr Sodium 135 L (137-145) mmol/L Chloride 97 L (98-107) mmol/L BUN 53 H (9-20) mg/dL Creatinine 3.84 H (0.66-1.25) mg/dL Glucose 236 H (74-99) mg/dL POC Glucose (mg/dL) 198 H (70-110) mg/dL Hemoglobin A1c 7.5 H (0.0-6.0) % C-Reactive Protein (<1.0) mg/dL Albumin 3.3 L (3.5-5.0) g/dL 03/09/22 03/09/22 Range/Units 11:44 17:42 WBC (3.8-10.6) k/uL RBC (4.30-5.90) m/uL Hgb (13.0-17.5) gm/dL Hct (39.0-53.0) % Neutrophils # (1.3-7.7) k/uL ESR (0-15) mm/hr Sodium (137-145) mmol/L Chloride (98-107) mmol/L BUN (9-20) mg/dL Creatinine (0.66-1.25) mg/dL Glucose (74-99) mg/dL POC Glucose (mg/dL) 232 H 251 H (70-110) mg/dL Hemoglobin A1c (0.0-6.0) % C-Reactive Protein (<1.0) mg/dL Albumin (3.5-5.0) g/dL Microbiology - Last 24 Hours (Table) 03/08/22 22:20 Anaerobic Culture - Preliminary Foot - Right 03/08/22 22:20 Wound Culture - Preliminary Foot - Right Diabetes panel 03/08/22 03/08/22 03/09/22 Range/Units 21:45 21:45 05:08 Sodium 133 L 135 L (137-145) mmol/L Potassium 4.9 4.8 (3.5-5.1) mmol/L Chloride 94 L 97 L (98-107) mmol/L Carbon Dioxide 24 26 (22-30) mmol/L BUN 55 H 53 H (9-20) mg/dL Creatinine 4.04 H 3.84 H (0.66-1.25) mg/dL Glucose 209 H 236 H (74-99) mg/dL Hemoglobin A1c CANCELED % Calcium 9.1 8.8 (8.4-10.2) mg/dL AST 20 17 (17-59) U/L ALT 21 19 (4-49) U/L Alkaline Phosphatase 116 103 (38-126) U/L Total Protein 7.8 7.0 (6.3-8.2) g/dL Albumin 3.8 3.3 L (3.5-5.0) g/dL 03/09/22 Range/Units 05:08 Sodium (137-145) mmol/L Potassium (3.5-5.1) mmol/L Chloride (98-107) mmol/L Carbon Dioxide (22-30) mmol/L BUN (9-20) mg/dL Creatinine (0.66-1.25) mg/dL Glucose (74-99) mg/dL Hemoglobin A1c 7.5 H % Calcium (8.4-10.2) mg/dL AST (17-59) U/L ALT (4-49) U/L Alkaline Phosphatase (38-126) U/L Total Protein (6.3-8.2) g/dL Albumin (3.5-5.0) g/dL Calcium panel 03/08/22 03/09/22 Range/Units 21:45 05:08 Calcium 9.1 8.8 (8.4-10.2) mg/dL Albumin 3.8 3.3 L (3.5-5.0) g/dL Pituitary panel 03/08/22 03/09/22 Range/Units 21:45 05:08 Sodium 133 L 135 L (137-145) mmol/L Potassium 4.9 4.8 (3.5-5.1) mmol/L Chloride 94 L 97 L (98-107) mmol/L Carbon Dioxide 24 26 (22-30) mmol/L BUN 55 H 53 H (9-20) mg/dL Creatinine 4.04 H 3.84 H (0.66-1.25) mg/dL Glucose 209 H 236 H (74-99) mg/dL Calcium 9.1 8.8 (8.4-10.2) mg/dL Adrenal panel 03/08/22 03/09/22 Range/Units 21:45 05:08 Sodium 133 L 135 L (137-145) mmol/L Potassium 4.9 4.8 (3.5-5.1) mmol/L Chloride 94 L 97 L (98-107) mmol/L Carbon Dioxide 24 26 (22-30) mmol/L BUN 55 H 53 H (9-20) mg/dL Creatinine 4.04 H 3.84 H (0.66-1.25) mg/dL Glucose 209 H 236 H (74-99) mg/dL Calcium 9.1 8.8 (8.4-10.2) mg/dL Total Bilirubin 0.2 0.3 (0.2-1.3) mg/dL AST 20 17 (17-59) U/L ALT 21 19 (4-49) U/L Alkaline Phosphatase 116 103 (38-126) U/L Total Protein 7.8 7.0 (6.3-8.2) g/dL Albumin 3.8 3.3 L (3.5-5.0) g/dL - Imaging Additional studies: I personally reviewed the right foot radiographs Assessment and Plan Assessment: #1: Diabetic foot wound right lower extremity with need for incision and drainage. #2: Renal insufficiency. #3: Diabetic vascular disease. #4: Diabetic neuropathy Plan: Patient is scheduled for incision and drainage of right foot abscess tomorrow March 10. The procedure, risk and benefits were discussed. All questions were answered to patient and spouse satisfaction. Time with Patient: Greater than 30
[2022-03-09] MEDS: DOXAZOSIN 2 MG TAB PO SCH (21:55)
[2022-03-09 22:04] LABS: Glucose,Whole Blood 210 mg/dL (70-110)
[2022-03-09] MEDS: SODIUM CHLORIDE 0.9% 1,000 ML IV SCH (22:04)
--- NOTE | 2022-03-09 23:44 | P.CONS ---
History of Present Illness - Reason for Consult Consult date: 03/09/22 cellulitis Requesting physician: Jonny Smallwood - Chief Complaint right foot wound and drainage x few days - History of Present Illness Patient is a 56-year-old male with a past medical history significant for diabetes mellitus hypertension hyperlipidemia presenting to the ER for a nonhealing wound on the plantar aspect of his right foot and some purulent dr luciana apparently the patient may have stepped on a bent few weeks ago and has developed a wound on the plantar aspect that seem to have got progressively get worse patient has been treated with no antibiotic in the outpatient setting without any improvement, patient denies having any fever or any chills patient did have a diabetic neuropathy without sensation or pain to the right foot plantar aspect wound has been complaining of some foul-smelling drainage and some swelling to the right foot with recent with the patient was evaluated on arrival to the ER the patient was afebrile and no fever have been recorded subsequently patient did have a normal white count he did have elevated BUN and creatinine liver enzymes are normal local culture has been obtained which are currently pending patient was started on vancomycin which has been switched to daptomycin and infectious disease was consulted for further management of antibiotic therapy Review of Systems Positive point has been mentioned in the HPI rest of the systems are negative Past Medical History Past Medical History: Diabetes Mellitus, Hyperlipidemia, Hypertension History of Any Multi-Drug Resistant Organisms: None Reported Additional Past Surgical History / Comment(s): cataract surgery Past Psychological History: No Psychological Hx Reported Smoking Status: Never smoker Past Alcohol Use History: None Reported Past Drug Use History: None Reported - Past Family History Mother Family Medical History: Cancer Additional Family Medical History / Comment(s): lung ca Medications and Allergies Home Medications Medication Instructions Recorded Confirmed Type Arginine [l-Arginine] 1,000 mg PO BID 06/04/20 03/08/22 History Aspirin EC [Ecotrin] 325 mg PO DAILY 06/04/20 03/08/22 History Cinnamon Bark [Cinnamon] 1,000 mg PO BID 06/04/20 03/08/22 History Ergocalciferol [Vitamin D2 50,000 unit PO WE 06/04/20 03/08/22 History (DRISDOL)] Escitalopram [Lexapro] 5 mg PO DAILY 06/04/20 03/08/22 History Ezetimibe [Zetia] 10 mg PO DAILY 06/04/20 03/08/22 History Insulin Glargine,Hum.rec.anlog 95 units SQ DAILY 06/04/20 03/08/22 History [Touelina Solostar] Liraglutide [Victoza 3-Jimmy] 1.8 mg SQ DAILY 06/04/20 03/08/22 History Ubidecarenone [Co Q-10] 100 mg PO DAILY 06/04/20 03/08/22 History Acetaminophen-Codeine 300-30mg 1 tab PO Q6H PRN 03/08/22 03/08/22 History [Tylenol w/codeine #3] Dapagliflozin Propanediol [Farxiga] 5 mg PO DAILY 03/08/22 03/08/22 History Doxycycline Hyclate 100 mg PO BID 03/08/22 03/08/22 History Fish Oil/Dha/Epa [Fish Oil 1,200 1 cap PO BID 03/08/22 03/08/22 History mg Fish Oil] Garlic 1,000 mg PO BID 03/08/22 03/08/22 History Labetalol HCl 200 mg PO BID 03/08/22 03/08/22 History Terazosin HCl 2 mg PO BID 03/08/22 03/08/22 History Torsemide [Demadex] 40 mg PO DAILY 03/08/22 03/08/22 History Turmeric Root Extract [Turmeric] 500 mg PO BID 03/08/22 03/08/22 History Zinc Gluconate [Zinc] 50 mg PO DAILY 03/08/22 03/08/22 History calcitrioL [Rocaltrol] 0.25 mcg PO Q48H 03/08/22 03/08/22 History hydrALAZINE HCL [Apresoline] 100 mg PO BID 03/08/22 03/08/22 History Allergies Allergy/AdvReac Type Severity Reaction Status Date / Time Penicillins Allergy Unknown Verified 03/08/22 22:50 Childhood Physical Exam Vitals: Vital Signs Temp Pulse Resp BP Pulse Ox 03/09/22 12:00 16 03/09/22 11:21 98.1 F 69 16 106/72 100 03/09/22 09:44 96.8 F L 70 16 136/76 99 03/09/22 08:37 97 03/09/22 08:31 98 F 72 16 129/76 97 03/09/22 07:28 16 03/09/22 06:23 64 14 122/82 95 03/09/22 00:06 67 18 137/97 95 03/08/22 21:13 63 18 134/67 98 03/08/22 16:54 98 F 71 16 102/61 97 Intake and Output 03/08/22 03/09/22 03/09/22 22:59 06:59 14:59 Other: Weight 117.934 kg GENERAL DESCRIPTION: Middle-aged male lying in bed, no distress. No tachypnea or accessory muscle of respiration use. HEENT: Shows Pallor , no scleral icterus. Oral mucous membrane is dry. No pharyngeal erythema or thrush NECK: Trachea central, no thyromegaly. LUNGS: Unlabored breathing. Clear to auscultation anteriorly. No wheeze or crackle. HEART: S1, S2, regular rate and rhythm. No loud murmur ABDOMEN: Soft, no tenderness , guarding or rigidity, no organomegaly EXTREMITIES: right foot plantar wound with slough tissue surrounding swelling and drainage SKIN: No rash, no masses palpable. NEUROLOGICAL: The patient is awake, alert, oriented x3, mood and affect normal. Results CBC & Chem 7: 03/10/22 07:46 03/12/22 06:40 Labs: Abnormal Lab Results - Last 24 Hours (Table) 03/08/22 03/08/22 03/09/22 Range/Units 21:45 21:45 05:08 WBC 15.9 H (3.8-10.6) k/uL RBC 4.29 L 4.11 L (4.30-5.90) m/uL Hgb 12.0 L 11.6 L (13.0-17.5) gm/dL Hct 37.5 L 36.3 L (39.0-53.0) % Neutrophils # 12.3 H (1.3-7.7) k/uL ESR 97 H (0-15) mm/hr Sodium 133 L (137-145) mmol/L Chloride 94 L (98-107) mmol/L BUN 55 H (9-20) mg/dL Creatinine 4.04 H (0.66-1.25) mg/dL Glucose 209 H (74-99) mg/dL POC Glucose (mg/dL) (70-110) mg/dL C-Reactive Protein 6.0 H (<1.0) mg/dL Albumin (3.5-5.0) g/dL 03/09/22 03/09/22 03/09/22 Range/Units 05:08 08:23 11:44 WBC (3.8-10.6) k/uL RBC (4.30-5.90) m/uL Hgb (13.0-17.5) gm/dL Hct (39.0-53.0) % Neutrophils # (1.3-7.7) k/uL ESR (0-15) mm/hr Sodium 135 L (137-145) mmol/L Chloride 97 L (98-107) mmol/L BUN 53 H (9-20) mg/dL Creatinine 3.84 H (0.66-1.25) mg/dL Glucose 236 H (74-99) mg/dL POC Glucose (mg/dL) 198 H 232 H (70-110) mg/dL C-Reactive Protein (<1.0) mg/dL Albumin 3.3 L (3.5-5.0) g/dL Microbiology - Last 24 Hours (Table) 03/08/22 22:20 Anaerobic Culture - Preliminary Foot - Right 03/08/22 22:20 Wound Culture - Preliminary Foot - Right Assessment and Plan (1) Diabetic infection of right foot Current Visit: Yes Status: Acute Code(s): E11.628 - TYPE 2 DIABETES MELLITUS WITH OTHER SKIN COMPLICATIONS; L08.9 - LOCAL INFECTION OF THE SKIN AND SUBCUTANEOUS TISSUE, UNSP SNOMED Code(s): 72307705 Plan: 1patient with a right diabetic foot infection with a possible abscess on the plantar aspect of the right foot failed to respond to the outpatient treatment with concern for possible gram-positive skin jessica such as MRSA. 2renal insufficiency and high risk of nephrotoxicity from vancomycin. 3vascular surgery evaluation for drainage of possible abscess and deep culture. 4daptomycin to continue while waiting for the culture to finalize. We will follow on clinical condition and cultures to further adjust medication if needed Thank you for this consultation will follow this patient along with you Time with Patient: Greater than 30
[2022-03-10] MEDS ORDERED: VANCOMYCIN 1,750 MG in SODIUM CHLORIDE 0.9% 500 ML 500 ML IVPB ONE ×2
[2022-03-10] MEDS: HEPARIN SODIUM,PORCINE/PF 5,000 UNIT/0.5 ML SYRINGE SQ SCH ×4 (00:08→23:41)
[2022-03-10] MEDS: traMADol 50 MG TAB PO PRN (03:44)
[2022-03-10 06:55] LABS: Glucose,Whole Blood 200 mg/dL (70-110)
[2022-03-10] MEDS: INSULIN ASPART (NovoLOG) 100 UNIT/ML VIAL SQ SCH ×4 (07:19→20:10)
[2022-03-10 08:46] LABS: African American GFR (CKD) 24 (>60 ml/min/1.73 sqM); Anion Gap 10 mmol/L; Blood Urea Nitrogen 49 mg/dL (9-20); Calcium 8.9 mg/dL (8.4-10.2); Carbon Dioxide 26 mmol/L (22-30); Chloride 101 mmol/L (98-107); Glucose 173 mg/dL (74-99); Non-African American GFR(CKD) 21 (>60 ml/min/1.73 sqM); Potassium 4.8 mmol/L (3.5-5.1); Sodium 137 mmol/L (137-145)
[2022-03-10] MEDS ORDERED: hydrALAZINE HCL 50 MG TAB PO SCH (09:30)
[2022-03-10] MEDS: LIRAGLUTIDE 0.6 MG/0.1 ML SQ SCH (09:31)
[2022-03-10] MEDS: DOXAZOSIN 2 MG TAB PO SCH ×2 (09:38→20:54)
[2022-03-10] MEDS: METOPROLOL SUCCINATE (ER) 50 MG TAB.ER.24H PO SCH ×2 (09:38→20:09)
[2022-03-10] MEDS: MULTIVITAMINS, THERA 1 EACH TAB PO SCH (09:38)
[2022-03-10] MEDS: EZETIMIBE 10 MG TAB PO SCH (09:38)
[2022-03-10] MEDS: ESCITALOPRAM 5 MG TAB PO SCH (09:39)
--- NOTE | 2022-03-10 09:54 | P.NPCON ---
History of Present Illness - Reason for Consult acute renal failure, chronic renal failure - History of Present Illness Reason for consultation: Acute kidney injury on chronic kidney disease History of present illness: Patient is a 56-year-old male seen in consultation for acute kidney injury on chronic kidney disease. Patient has chronic kidney disease stage IIIB with baseline creatinine in the range of 1.6-1.8 and 2020. 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 Patient presented to the hospital due to right foot infection. Patient states he was seen in the ER a little over a week ago and was prescribed Bactrim. Patient states his primary care physician changed his antibiotic to something else but doesn't remember the name. Patient states the pain didn't improve and was also having drainage so came to the hospital. Patient's creatinine on admission was 4.04 and is 3.16 today. Patient was taking torsemide at home which is currently held. He is receiving IV fluids. Patient has long-standing history of diabetes. Denies history of coronary artery disease. He did have vomiting prior to admission but none now. Oral intake has been good. No hematuria or dysuria. Denies use of nonsteroidals. States his brother is on hemodialysis who has 1 kidney but is unsure of the exact etiology. Vital signs are stable. General: Awake. No acute distress. HEENT: Head exam is unremarkable. LUNGS: Breath sounds decreased. HEART: Rate and Rhythm are regular. ABDOMEN: Soft, no distention. EXTREMITITES: No edema. No drainage noted. Past Medical History Past Medical History: Diabetes Mellitus, Hyperlipidemia, Hypertension History of Any Multi-Drug Resistant Organisms: None Reported Additional Past Surgical History / Comment(s): cataract surgery, foot debridement Past Anesthesia/Blood Transfusion Reactions: No Reported Reaction Past Psychological History: No Psychological Hx Reported Smoking Status: Former smoker Past Alcohol Use History: None Reported Past Drug Use History: None Reported - Past Family History Mother Family Medical History: Cancer Additional Family Medical History / Comment(s): lung ca Medications and Allergies Home Medications Medication Instructions Recorded Confirmed Type Arginine [l-Arginine] 1,000 mg PO BID 06/04/20 03/08/22 History Aspirin EC [Ecotrin] 325 mg PO DAILY 06/04/20 03/08/22 History Cinnamon Bark [Cinnamon] 1,000 mg PO BID 06/04/20 03/08/22 History Ergocalciferol [Vitamin D2 50,000 unit PO WE 06/04/20 03/08/22 History (DRISDOL)] Escitalopram [Lexapro] 5 mg PO DAILY 06/04/20 03/08/22 History Ezetimibe [Zetia] 10 mg PO DAILY 06/04/20 03/08/22 History Insulin Glargine,Hum.rec.anlog 95 units SQ DAILY 06/04/20 03/08/22 History [Marlen Ching] Liraglutide [Victoza 3-Jimmy] 1.8 mg SQ DAILY 06/04/20 03/08/22 History Ubidecarenone [Co Q-10] 100 mg PO DAILY 06/04/20 03/08/22 History Acetaminophen-Codeine 300-30mg 1 tab PO Q6H PRN 03/08/22 03/08/22 History [Tylenol w/codeine #3] Dapagliflozin Propanediol [Farxiga] 5 mg PO DAILY 03/08/22 03/08/22 History Doxycycline Hyclate 100 mg PO BID 03/08/22 03/08/22 History Fish Oil/Dha/Epa [Fish Oil 1,200 1 cap PO BID 03/08/22 03/08/22 History mg Fish Oil] Garlic 1,000 mg PO BID 03/08/22 03/08/22 History Labetalol HCl 200 mg PO BID 03/08/22 03/08/22 History Terazosin HCl 2 mg PO BID 03/08/22 03/08/22 History Torsemide [Demadex] 40 mg PO DAILY 03/08/22 03/08/22 History Turmeric Root Extract [Turmeric] 500 mg PO BID 03/08/22 03/08/22 History Zinc Gluconate [Zinc] 50 mg PO DAILY 03/08/22 03/08/22 History calcitrioL [Rocaltrol] 0.25 mcg PO Q48H 03/08/22 03/08/22 History hydrALAZINE HCL [Apresoline] 100 mg PO BID 03/08/22 03/08/22 History Allergies Allergy/AdvReac Type Severity Reaction Status Date / Time Penicillins Allergy Unknown Verified 03/08/22 22:50 Childhood Physical Exam Vitals: Vital Signs Temp Pulse Pulse Resp BP BP Pulse Ox 03/10/22 09:36 98.4 F 59 L 16 180/85 99 03/10/22 03:56 97.7 F 58 L 18 178/87 97 03/10/22 00:13 98.1 F 65 18 180/82 97 03/10/22 00:00 98.1 F 65 18 180/82 97 03/09/22 23:00 82 16 147/74 97 03/09/22 21:00 78 17 154/78 97 03/09/22 19:00 98.4 F 62 16 162/77 97 03/09/22 17:54 98.1 F 66 16 98 03/09/22 15:06 98.6 F 64 16 131/71 98 03/09/22 14:21 16 03/09/22 13:05 97.8 F 60 16 167/82 98 03/09/22 12:00 16 03/09/22 11:21 98.1 F 69 16 106/72 100 03/09/22 09:44 96.8 F L 70 16 136/76 99 Intake and Output 03/09/22 03/10/22 03/10/22 22:59 06:59 14:59 Other: Voiding Method Toilet # Voids 1 1 Weight 117.934 kg Results - Lab Results Most recent lab results Calcium 8.9 mg/dL (8.4-10.2) 03/10/22 07:46 03/09/22 05:08 03/10/22 07:46 Assessment and Plan Plan: Assessment: 1. Acute kidney injury mostly prerenal improved with IV hydration. Creatinine was 4.04 on admission and is 3.16 today. 2. Chronic kidney disease stage IIIB with baseline creatinine near 1.6-1.8 in May 2020 secondary to diabetic kidney disease. Patient follows with master welder out of [place], [place]. 3. Hypertension with chronic kidney disease. 4. Diabetes mellitus. 5. Right foot infection. Wound culture positive for MRSA. Being followed by vascular surgery. Scheduled for incision and drainage today. Plan: Maintain IV fluids. Continue to hold diuretics. Check renal ultrasound. Check urinalysis. Increase hydralazine to 100 mg 3 times daily. Add 10 mg IV hydralazine every 6 hours as needed for systolic blood pressure greater than 160. Avoid nephrotoxins. Thank you for the consultation. I will continue to follow the patient with you during his hospital stay.
[2022-03-10] MEDS: LABETALOL 200 MG TAB PO SCH ×2 (10:23→20:10)
[2022-03-10 11:32] LABS: Appearance,Urine Clear (Clear); Bilirubin,Urine Negative (Negative); Blood,Urine Negative (Negative); Color,Urine Light Yellow; Glucose,Urine (UA) 3+ (Negative); Hyaline Casts,Urine 3 /lpf (0-2); Ketones,Urine Negative (Negative); Leukocyte Esterase,Urine Negative (Negative); Mucus,Urine Rare /hpf; Nitrite,Urine Negative (Negative); PH, Urine 5.5 (5.0-8.0); Protein,Urine 2+ (Negative); RBC,Urine <1 /hpf (0-5); Specific Gravity,Urine 1.011 (1.001-1.035); Urobilinogen,Urine <2.0 mg/dL (<2.0); WBC,Urine 1 /hpf (0-5)
[2022-03-10 11:43] LABS: Glucose,Whole Blood 206 mg/dL (70-110)
[2022-03-10] MEDS: SODIUM CHLORIDE 0.9% 1,000 ML IV SCH ×2 (11:57→23:55)
--- NOTE | 2022-03-10 12:07 | P.PN ---
Subjective Progress Note Date: 03/10/22 Principal diagnosis: Right foot abscess Patient seen and examined today as a follow-up. Vascular surgery was consulted yesterday for concern for abscess of the plantar surface of right foot. Patient is a diabetic. Patient was tentatively scheduled for right foot incision and drainage with deep tissue cultures today, however the operating room will not be able to accommodate until late this evening. Patient has been afebrile, pain is well controlled. This patient will be rescheduled for tomorrow early afternoon. Objective - Vital Signs Vital signs: Vital Signs Temp 98.4 F 03/10/22 09:36 Pulse 59 L 03/10/22 09:36 Resp 16 03/10/22 09:36 BP 180/85 03/10/22 09:36 Pulse Ox 99 03/10/22 09:36 FiO2 Intake & Output 03/09/22 03/10/22 03/10/22 18:59 06:59 18:59 Weight 117.934 kg Other: Voiding Method Toilet Toilet # Voids 1 1 - Exam General appearance: The patient is alert, oriented, appears in no acute distress. HET: Head is normocephalic and atraumatic. Neck: Supple Extremities: Right foot with dressing in place purulent drainage. Neurological: Alert and oriented 3. - Labs CBC & Chem 7: 03/09/22 05:08 03/10/22 07:46 Labs: Abnormal Lab Results - Last 24 Hours (Table) 03/09/22 03/09/22 03/09/22 Range/Units 05:08 17:42 22:03 BUN (9-20) mg/dL Creatinine (0.66-1.25) mg/dL Glucose (74-99) mg/dL POC Glucose (mg/dL) 251 H 210 H (70-110) mg/dL Hemoglobin A1c 7.5 H (0.0-6.0) % Urine Protein (Negative) Urine Glucose (UA) (Negative) Hyaline Casts (0-2) /lpf Urine Mucus (None) /hpf 03/10/22 03/10/22 03/10/22 Range/Units 06:54 07:46 11:03 BUN 49 H (9-20) mg/dL Creatinine 3.16 H (0.66-1.25) mg/dL Glucose 173 H (74-99) mg/dL POC Glucose (mg/dL) 200 H (70-110) mg/dL Hemoglobin A1c (0.0-6.0) % Urine Protein 2+ H (Negative) Urine Glucose (UA) 3+ H (Negative) Hyaline Casts 3 H (0-2) /lpf Urine Mucus Rare H (None) /hpf 03/10/22 Range/Units 11:39 BUN (9-20) mg/dL Creatinine (0.66-1.25) mg/dL Glucose (74-99) mg/dL POC Glucose (mg/dL) 206 H (70-110) mg/dL Hemoglobin A1c (0.0-6.0) % Urine Protein (Negative) Urine Glucose (UA) (Negative) Hyaline Casts (0-2) /lpf Urine Mucus (None) /hpf Microbiology - Last 24 Hours (Table) 03/08/22 21:45 Blood Culture - Preliminary Blood No Growth after 24 hours 03/08/22 21:30 Blood Culture - Preliminary Blood No Growth after 24 hours 03/08/22 22:20 Gram Stain - Preliminary Foot - Right Wound Culture - Preliminary Presumptive MRSA Assessment and Plan Assessment: 1. Diabetic foot wound right lower extremity with need for incision and drainage 2. Renal insufficiency 3. Diabetic vascular disease 4. Diabetic neuropathy Plan: 1. Patient may have consistent carbohydrate, nothing by mouth after midnight 2. Continue medical management 3. Continue IV antibiotics 4. Patient rescheduled for incision and drainage tomorrow of the right foot with deep tissue cultures Thank you for this consultation, we will continue to follow. The impression and plan of care has been dictated as directed. Dr. Maradiaga I performed a history and examination of this patient, discussed the same with the dictator. I agree with the dictator's note ,documented as a scribe. Any additional findings or plans will be noted.
[2022-03-10 13:13] VITALS: BMI 33.3
--- NOTE | 2022-03-10 15:14 | US ---
EXAMINATION TYPE: US kidneys/renal and bladder DATE OF EXAM: 03/10/2022 COMPARISON: 2019 CLINICAL HISTORY: edgar. EXAM MEASUREMENTS: Right Kidney: 11.5 x 5.9 x 6.7 cm Left Kidney: 10.5 x 5.7 x 5.5 cm Right Kidney: No hydronephrosis or masses seen Left Kidney: No hydronephrosis or masses seen Bladder: wnl Bilateral Jets seen: no There is no evidence for hydronephrosis at this point in time. No nephrolithiasis is seen. No sharon s are identified. The urinary bladder is anechoic. Bilateral ureteral jets are seen. IMPRESSION: No evidence of obstructive uropathy.
[2022-03-10 16:21] LABS: HCT 35.7 % (39.6-50.0); HGB 11.3 g/dL (13.0-17.0); MCH 27.6 pg (27.0-32.0); MCHC 31.7 g/dL (32.0-37.0); MCV 87.1 fL (80.0-97.0); Mean Platelet Volume 10.7 fL (9.5-12.2); NRBC Per 100 WBC 0 /100 WBCS (0.0-0.0); Platelet Count 259 X 10*3/uL (140-440); RDW 11.9 % (11.5-14.5); WBC 8.03 X 10*3/uL (4.50-10.00)
[2022-03-10 16:35] LABS: Glucose,Whole Blood 298 mg/dL (70-110)
[2022-03-10] MEDS: hydrALAZINE HCL 50 MG TAB PO SCH ×2 (17:02→20:10)
--- NOTE | 2022-03-10 18:03 | P.PN ---
Subjective Progress Note Date: 03/10/22 56-year-old male came in with complains of worsening right foot infection patient has a callus and a bony spur in the on the plantar surface of the right foot in the mid foot area. Patient was started on Bactrim by his physician which was discontinued couple days ago and patient was started on Keflex and doxycycline without any improvement patient was seen by medical advisor who sent him to ER. Patient is found to be in acute renal failure patient was started on vancomycin which will be switched to daptomycin because of poor function patient does have redness and infection in the web spaces as well predominantly between fourth and fifth toes. Patient baseline creatinine appears to be 1.6 and patien t the creatinine on admission was 4.5. Wound cultures were obtained patient doesn't have any fever. Had leukocytosis on admission which is improving at this time patient was on IV fluids. Patient was hyponatremic as well. As per the previous history patient doesn't appear to have any CHF but is on Demadex. Patient is bit hypotensive as well. 03/10/2022 Patient is seen and evaluated and followed this morning was currently nothing by mouth for I&D with vascular surgery although no available OR time and being bumped for tomorrow. Patient is maintained on IV antibiotics and will continue and awaiting I&D with debridement for deep tissue cultures to determine discharge antibiotics. Infectious disease is following. Patient also with kidney injury although functions are improving and creatinine is 3.16 today. Recommend repeat labs and close monitoring. We'll continue to monitor blood sugars as well as blood pressures as they were elevated and have resume some home medications. Also IV hydralazine when necessary ordered as well. Patient is continued on daptomycin for now. Patient is currently afebrile denies chest pain or shortness of breath. Patient denies nausea or vomiting and reports to feeling hungry but reports he is nothing by mouth for the possible procedure. PHYSICAL EXAMINATION: GENERAL: The patient is alert and oriented x3, not in any acute distress. Well developed, well nourished. HEENT: Pupils are round and equally reacting to light. EOMI. No scleral icterus. No conjunctival pallor. Normocephalic, atraumatic. No pharyngeal erythema. No thyromegaly. CARDIOVASCULAR: S1 and S2 present. No murmurs, rubs, or gallops. PULMONARY: Chest is clear to auscultation, no wheezing or crackles. ABDOMEN: Soft, nontender, nondistended, normoactive bowel sounds. No palpable organomegaly. MUSCULOSKELETAL: No joint swelling or deformity. EXTREMITIES: No cyanosis, clubbing, or pedal edema. NEUROLOGICAL: Gross neurological examination did not reveal any focal deficits. SKIN: Cellulitis and redness with the wound and bony spur in the right mid plantar foot with right foot web space infection. Assessment and plan -Right foot cellulitis and wound infection: Patient obtained on daptomycin because of poor renal function, infectious disease following and awaiting deep tissue cultures. As for I&D with vascular surgery although being rescheduled for tomorrow as there was no OR time available. Patient will be monitored wound cultures were obtained -Acute renal failure on chronic kidney disease stage III acute renal failure probably secondary to probably Bactrim along with diuretics as well as hypotension -Type 2 diabetes mellitus and diabetic foot infection long-acting and insulin will be continued with sliding scale other diabetic medications will be held -Hypertension patient is hypertensive this morning again although was hypotensive yesterday and will resume hypertensive medications -DVT prophylaxis: Subcutaneous heparin plan: plan for possible surgical intervention with I&D with vascular surgery in the morning and will make the patient nothing by mouth after midnight. Continue to monitor Accu-Cheks before meals and at bedtime and treat with sliding scale. Hypertensive medications have been resumed. Recommend repeat labs and close monitoring. The impression and plan of care has been dictated by Christine Corcoran, Nurse Practitioner as directed. Dr. Cl MD I have performed a history and examination and MDM of this patient, discussed the same with the dictator, and agree with the dictator's assessment and plan as written ,documented as a scribe. Based on total visit time, I have performed more than 50% of the visit. Objective - Vital Signs Vital signs: Vital Signs Temp 97.7 F 03/10/22 03:56 Pulse 58 L 03/10/22 03:56 Resp 18 03/10/22 03:56 BP 178/87 03/10/22 03:56 Pulse Ox 97 03/10/22 03:56 FiO2 Intake & Output 03/09/22 03/10/22 03/10/22 18:59 06:59 18:59 Weight 117.934 kg Other: Voiding Method Toilet # Voids 1 1 - Labs CBC & Chem 7: 03/10/22 07:46 03/10/22 07:46 Labs: Abnormal Lab Results - Last 24 Hours (Table) 03/09/22 03/09/22 03/09/22 Range/Units 05:08 11:44 17:42 BUN (9-20) mg/dL Creatinine (0.66-1.25) mg/dL Glucose (74-99) mg/dL POC Glucose (mg/dL) 232 H 251 H (70-110) mg/dL Hemoglobin A1c 7.5 H (0.0-6.0) % 03/09/22 03/10/22 03/10/22 Range/Units 22:03 06:54 07:46 BUN 49 H (9-20) mg/dL Creatinine 3.16 H (0.66-1.25) mg/dL Glucose 173 H (74-99) mg/dL POC Glucose (mg/dL) 210 H 200 H (70-110) mg/dL Hemoglobin A1c (0.0-6.0) % Microbiology - Last 24 Hours (Table) 03/08/22 21:45 Blood Culture - Preliminary Blood No Growth after 24 hours 03/08/22 21:30 Blood Culture - Preliminary Blood No Growth after 24 hours 03/08/22 22:20 Gram Stain - Preliminary Foot - Right Wound Culture - Preliminary Presumptive MRSA
[2022-03-10 19:48] LABS: Glucose,Whole Blood 304 mg/dL (70-110)
[2022-03-10] MEDS: hydrALAZINE HCL 20 MG/ML 1 ML VIAL IVP PRN (23:44)
[2022-03-11 05:55] LABS: Glucose,Whole Blood 215 mg/dL (70-110)
[2022-03-11] MEDS: INSULIN ASPART (NovoLOG) 100 UNIT/ML VIAL SQ SCH ×4 (06:31→20:59)
[2022-03-11] MEDS: EZETIMIBE 10 MG TAB PO SCH (08:07)
[2022-03-11] MEDS: hydrALAZINE HCL 50 MG TAB PO SCH ×3 (08:07→21:00)
[2022-03-11] MEDS: METOPROLOL SUCCINATE (ER) 50 MG TAB.ER.24H PO SCH ×2 (08:07→20:59)
[2022-03-11] MEDS: MULTIVITAMINS, THERA 1 EACH TAB PO SCH (08:07)
[2022-03-11] MEDS: DOXAZOSIN 2 MG TAB PO SCH (08:07)
[2022-03-11] MEDS: ESCITALOPRAM 5 MG TAB PO SCH (08:07)
[2022-03-11] MEDS: HEPARIN SODIUM,PORCINE/PF 5,000 UNIT/0.5 ML SYRINGE SQ SCH ×2 (08:08→18:11)
[2022-03-11] MEDS: LABETALOL 200 MG TAB PO SCH ×2 (08:08→21:00)
[2022-03-11 09:35] LABS: Calcium 8.9 mg/dL (8.4-10.2); Potassium 4.6 mmol/L (3.5-5.1)
[2022-03-11] MEDS ORDERED: INSULIN DETEMIR (LEVEMIR) 100 UNIT/ML SYR SQ SCH (10:17)
[2022-03-11 10:19] LABS: Magnesium 2.2 mg/dL (1.6-2.3)
--- NOTE | 2022-03-11 10:38 | P.PN ---
Subjective Patient is seen in follow-up for acute kidney injury on chronic kidney disease. Renal function improving. Has been voiding. Oral intake. No vomiting or diarrhea. Scheduled for debridement today. Vital signs are stable. General: Awake. No acute distress. HEENT: Head exam is unremarkable. LUNGS: Breath sounds decreased. HEART: Rate and Rhythm are regular. ABDOMEN: Soft, no distention. EXTREMITITES: No edema. No drainage noted. Objective - Vital Signs Vital signs: Vital Signs Temp 98.3 F 03/11/22 08:04 Pulse 55 L 03/11/22 08:04 Resp 15 03/11/22 08:04 BP 178/89 03/11/22 08:04 Pulse Ox 97 03/11/22 08:04 FiO2 Intake & Output 03/10/22 03/11/22 03/11/22 18:59 06:59 18:59 Intake Total 476 Balance 476 Weight 117.934 kg Intake: Oral 476 Other: Voiding Method Toilet Toilet # Voids 1 2 - Labs CBC & Chem 7: 03/10/22 07:46 03/11/22 07:43 Labs: Abnormal Lab Results - Last 24 Hours (Table) 03/10/22 03/10/22 03/10/22 Range/Units 07:46 11:03 11:39 RBC 4.10 L (4.40-5.60) X 10*6/uL Hgb 11.3 L (13.0-17.0) g/dL Hct 35.7 L (39.6-50.0) % MCHC 31.7 L (32.0-37.0) g/dL Sodium (137-145) mmol/L BUN (9-20) mg/dL Creatinine (0.66-1.25) mg/dL Glucose (74-99) mg/dL POC Glucose (mg/dL) 206 H (70-110) mg/dL Urine Protein 2+ H (Negative) Urine Glucose (UA) 3+ H (Negative) Hyaline Casts 3 H (0-2) /lpf Urine Mucus Rare H (None) /hpf 03/10/22 03/10/22 03/11/22 Range/Units 16:34 19:46 05:54 RBC (4.40-5.60) X 10*6/uL Hgb (13.0-17.0) g/dL Hct (39.6-50.0) % MCHC (32.0-37.0) g/dL Sodium (137-145) mmol/L BUN (9-20) mg/dL Creatinine (0.66-1.25) mg/dL Glucose (74-99) mg/dL POC Glucose (mg/dL) 298 H 304 H 215 H (70-110) mg/dL Urine Protein (Negative) Urine Glucose (UA) (Negative) Hyaline Casts (0-2) /lpf Urine Mucus (None) /hpf 03/11/22 Range/Units 07:43 RBC (4.40-5.60) X 10*6/uL Hgb (13.0-17.0) g/dL Hct (39.6-50.0) % MCHC (32.0-37.0) g/dL Sodium 136 L (137-145) mmol/L BUN 47 H (9-20) mg/dL Creatinine 2.82 H (0.66-1.25) mg/dL Glucose 203 H (74-99) mg/dL POC Glucose (mg/dL) (70-110) mg/dL Urine Protein (Negative) Urine Glucose (UA) (Negative) Hyaline Casts (0-2) /lpf Urine Mucus (None) /hpf Microbiology - Last 24 Hours (Table) 03/08/22 22:20 Anaerobic Culture - Preliminary Foot - Right 03/08/22 21:45 Blood Culture - Preliminary Blood No Growth after 48 hours 03/08/22 21:30 Blood Culture - Preliminary Blood No Growth after 48 hours 03/08/22 22:20 Gram Stain - Final Foot - Right Wound Culture - Final Methicillin resist S. aureus Assessment and Plan Plan: Assessment: 1. Acute kidney injury mostly prerenal improved with IV hydration. Creatinine was 4.04 on admission and is 2.82 today. No hydronephrosis noted on kidney ultrasound. 2. Chronic kidney disease stage IIIB with baseline creatinine near 1.6-1.8 in May 2020 secondary to diabetic kidney disease. 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 3. Hypertension with chronic kidney disease. Blood pressure on the higher side. 4. Diabetes mellitus. 5. Right foot infection. Wound culture positive for MRSA. Being followed by vascular surgery. Scheduled for incision and drainage today. Plan: Maintain IV fluids. Continue to hold diuretics. Avoid nephrotoxins. Add amlodipine 5 mg once daily.
[2022-03-11] MEDS: amLODIPine 5 MG TAB PO SCH (11:20)
[2022-03-11] MEDS: LIRAGLUTIDE 0.6 MG/0.1 ML SQ SCH (11:22)
[2022-03-11] MEDS: TOUJEO 300 UNIT/ML SQ SCH (11:23)
[2022-03-11 11:24] LABS: Glucose,Whole Blood 206 mg/dL (70-110)
[2022-03-11 13:08] LABS: Calcium 8.8 mg/dL (8.4-10.2); Potassium 4.8 mmol/L (3.5-5.1)
[2022-03-11] MEDS ORDERED: ONDANSETRON 4 MG/2 ML VIAL ONE (14:21)
[2022-03-11] MEDS ORDERED: LACTATED RINGERS 1,000 ML IV ONE (14:30)
[2022-03-11 14:39] LABS: Glucose,Whole Blood 184 mg/dL (70-110)
[2022-03-11] MEDS ORDERED: ONDANSETRON 4 MG/2 ML VIAL IVP ONE (15:00)
--- NOTE | 2022-03-11 16:20 | P.PN ---
Subjective Progress Note Date: 03/11/22 56-year-old male came in with complains of worsening right foot infection patient has a callus and a bony spur in the on the plantar surface of the right foot in the mid foot area. Patient was started on Bactrim by his physician which was discontinued couple days ago and patient was started on Keflex and doxycycline without any improvement patient was seen by drafter electronic who sent him to ER. Patient is found to be in acute renal failure patient was started on vancomycin which will be switched to daptomycin because of poor function patient does have redness and infection in the web spaces as well predominantly between fourth and fifth toes. Patient baseline creatinine appears to be 1.6 and patien t the creatinine on admission was 4.5. Wound cultures were obtained patient doesn't have any fever. Had leukocytosis on admission which is improving at this time patient was on IV fluids. Patient was hyponatremic as well. As per the previous history patient doesn't appear to have any CHF but is on Demadex. Patient is bit hypotensive as well. 03/10/2022 Patient is seen and evaluated and followed this morning was currently nothing by mouth for I&D with vascular surgery although no available OR time and being bumped for tomorrow. Patient is maintained on IV antibiotics and will continue and awaiting I&D with debridement for deep tissue cultures to determine discharge antibiotics. Infectious disease is following. Patient also with kidney injury although functions are improving and creatinine is 3.16 today. Recommend repeat labs and close monitoring. We'll continue to monitor blood sugars as well as blood pressures as they were elevated and have resume some home medications. Also IV hydralazine when necessary ordered as well. Patient is continued on daptomycin for now. Patient is currently afebrile denies chest pain or shortness of breath. Patient denies nausea or vomiting and reports to feeling hungry but reports he is nothing by mouth for the possible procedure. 03/11/2022 Patient is seen in follow-up this morning currently nothing by mouth again as patient is scheduled to undergo I&D with vascular surgery this afternoon. Vascular surgery, infectious disease, and nephrology following. Kidney functions improving and BUN is 45 with a creatinine of 2.73. Blood sugars mildly elevated and has brought in his touelmer antoine and requesting to switch to this as patient has had complications with other insulins in the outpatient setting and has been started on these medications with improvement in blood sugars for quite some time. Discussed with nursing staff with pharmacy to verify to use patient's home medications and will resume this. Recommend Accu- Cheks before meals and at bedtime. Patient okay to resume oral diabetic agents after surgery. ID following and patient is maintained on daptomycin with the wound culture showing MRSA and will most likely need IV antibiotics on discharge. Patient to obtain deep tissue cultures during procedure. Patient is afebrile denies chest pain or shortness of breath. PHYSICAL EXAMINATION: GENERAL: The patient is alert and oriented x3, not in any acute distress. Well developed, well nourished. HEENT: Pupils are round and equally reacting to light. EOMI. No scleral icterus. No conjunctival pallor. Normocephalic, atraumatic. No pharyngeal erythema. No thyromegaly. CARDIOVASCULAR: S1 and S2 present. No murmurs, rubs, or gallops. PULMONARY: Chest is clear to auscultation, no wheezing or crackles. ABDOMEN: Soft, nontender, nondistended, normoactive bowel sounds. No palpable organomegaly. MUSCULOSKELETAL: No joint swelling or deformity. EXTREMITIES: No cyanosis, clubbing, or pedal edema. NEUROLOGICAL: Gross neurological examination did not reveal any focal deficits. SKIN: Cellulitis and redness with the wound and bony spur in the right mid plantar foot with right foot web space infection. Assessment: -Right foot cellulitis and wound infection: Patient is continued on daptomycin and awaiting I&D this afternoon with vascular surgery, wound culture showing MRSA and will likely need IV antibiotics on discharge -Acute renal failure on chronic kidney disease stage III acute renal failure probably secondary to probably Bactrim along with diuretics as well as hypotension, improving and nephrology following -Type 2 diabetes mellitus and diabetic foot infection. Recommend continue sliding scale as needed although resuming home medications as his blood sugars are more regulated on these medications and has brought been in okay to resume -Hypertension -DVT prophylaxis: Subcutaneous heparin -Full code Plan: plan for today is I&D with vascular surgery this afternoon and patient is currently nothing by mouth. Recommend to monitor blood sugars before meals and at bedtime and will resume home medications and continue to hold oral medications for now until after surgery. Infectious disease following and patient is maintained on daptomycin and culture showing MRSA will possibly need IV antibiotics with case management following an verify coverage. Will await s urgical report and recommend repeat labs. Deep tissue cultures to be obtained during procedure. The impression and plan of care has been dictated by Christine Corcoran, Nurse Practitioner as directed. Dr. Cl MD I have performed a history and examination and MDM of this patient, discussed the same with the dictator, and agree with the dictator's assessment and plan as written ,documented as a scribe. Based on total visit time, I have performed more than 50% of the visit. Objective - Vital Signs Vital signs: Vital Signs Temp 98.3 F 03/11/22 08:04 Pulse 55 L 03/11/22 08:04 Resp 15 03/11/22 08:04 BP 178/89 03/11/22 08:04 Pulse Ox 97 03/11/22 08:04 FiO2 Intake & Output 03/10/22 03/11/22 03/11/22 18:59 06:59 18:59 Intake Total 476 Balance 476 Weight 117.934 kg Intake: Oral 476 Other: Voiding Method Toilet Toilet # Voids 1 2 - Labs CBC & Chem 7: 03/10/22 07:46 03/11/22 12:13 Labs: Abnormal Lab Results - Last 24 Hours (Table) 03/10/22 03/10/22 03/10/22 Range/Units 07:46 11:03 11:39 RBC 4.10 L (4.40-5.60) X 10*6/uL Hgb 11.3 L (13.0-17.0) g/dL Hct 35.7 L (39.6-50.0) % MCHC 31.7 L (32.0-37.0) g/dL POC Glucose (mg/dL) 206 H (70-110) mg/dL Urine Protein 2+ H (Negative) Urine Glucose (UA) 3+ H (Negative) Hyaline Casts 3 H (0-2) /lpf Urine Mucus Rare H (None) /hpf 03/10/22 03/10/22 03/11/22 Range/Units 16:34 19:46 05:54 RBC (4.40-5.60) X 10*6/uL Hgb (13.0-17.0) g/dL Hct (39.6-50.0) % MCHC (32.0-37.0) g/dL POC Glucose (mg/dL) 298 H 304 H 215 H (70-110) mg/dL Urine Protein (Negative) Urine Glucose (UA) (Negative) Hyaline Casts (0-2) /lpf Urine Mucus (None) /hpf Microbiology - Last 24 Hours (Table) 03/08/22 22:20 Anaerobic Culture - Preliminary Foot - Right 03/08/22 21:45 Blood Culture - Preliminary Blood No Growth after 48 hours 03/08/22 21:30 Blood Culture - Preliminary Blood No Growth after 48 hours 03/08/22 22:20 Gram Stain - Final Foot - Right Wound Culture - Final Methicillin resist S. aureus
[2022-03-11] MEDS ORDERED: KETAMINE 10 MG/ML 20 ML VIAL ONE (16:31)
[2022-03-11] MEDS ORDERED: fentaNYL (PF) 50 MCG/ML 2 ML AMP ONE (16:31)
[2022-03-11] MEDS ORDERED: PROPOFOL 10 MG/ML 20 ML VIAL IV ONE (16:31)
[2022-03-11] MEDS ORDERED: MIDAZOLAM 2 MG/2 ML VIAL ONE (16:31)
--- NOTE | 2022-03-11 17:20 | P.OP ---
Date of Procedure: 03/11/22 Description of Procedure: Preoperative diagnosis: [Right lower extremity infected diabetic foot ulcer] Postoperative diagnosis: Same Procedure: [Sharp excisional debridement right lower extremity wounds Plantar wound 1.6 x 1.5 x 2 cm to bone Fifth toe wound 2.7 x 0.5 x 5 cm to bone] Surgeon: Heidi Maradiaga D.O. EBL: [5 mL] IV fluids: [See records] Urine output: [Not measured] Drains: [None] Complications: [None immediately apparent] Condition: [Stable to recovery] Operative indication and findings: [The patient is a 56-year-old male with diabetes who has noticed worsening cellulitis of his foot and subsequent wounds. This is the first time he has had these wounds appear. He denies any previous wounds. He maintains palpable pulses therefore at this time he was offered a debridement and cultures. He seemingly understood risks and benefits and was willing to proceed] Procedure in detail: [The patient was taken to the operative suite and placed in supine position. The right lower extremity is prepped and draped in usual sterile fashion. A preprocedure timeout performed, all parties are in agreement. Scalpel and scissors were used to cut away the slough and fibrinous tissue of the plantar wound as well as the wound at the fourth fifth interspace. The plantar wound itself had a small amount of tunneling at the 4 o'clock position and measurements are as above. It was debrided of all its nonviable tissue. The deep portion was cultured. It did probe to the periosteal tissues. Attention was then turned towards the wound between the fourth and fifth interspace. It was debrided as well with a curet and scalpel. The interspace was enlarged as the wound tracted up to the metatarsals in this area. Both areas were copiously irrigated and Dakin's wet-to-dry dressings were placed.]
[2022-03-11] MEDS ORDERED: HYDROmorphone 0.5 MG/0.5 ML SYRINGE IVP ONE ×2 (17:29→17:41)
[2022-03-11 17:36] LABS: Glucose,Whole Blood 143 mg/dL (70-110)
[2022-03-11] MEDS: SODIUM CHLORIDE 0.9% 1,000 ML IV SCH ×2 (18:10→21:00)
[2022-03-11 20:52] LABS: Glucose,Whole Blood 226 mg/dL (70-110)
[2022-03-11] MEDS: hydrALAZINE HCL 20 MG/ML 1 ML VIAL IVP PRN (22:23)
--- NOTE | 2022-03-11 22:41 | P.PN ---
Subjective Progress Note Date: 03/10/22 Principal diagnosis: Right diabetic foot infection Patient is a 56 year old male with a past medical history significant for diabetes mellitus presenting to the hospital with a nonhealing wound on the plantar aspect of his right foot with purulent drainage has been diagnosed with diabetic foot infection and for underlying abscess, ER culture came back positive with presumptive MRSA On today's evaluation that is 03/10/2022, the patient denies having any fever or any chills patient is breathing comfortably no chest pain shortness of breath or cough no nausea no vomiting no abdominal pain or pain to the right foot area Objective - Vital Signs Vital signs: Vital Signs Temp 98.4 F 03/10/22 09:36 Pulse 59 L 03/10/22 09:36 Resp 16 03/10/22 09:36 BP 180/85 03/10/22 09:36 Pulse Ox 99 03/10/22 09:36 FiO2 Intake & Output 03/09/22 03/10/22 03/10/22 18:59 06:59 18:59 Weight 117.934 kg Other: Voiding Method Toilet Toilet # Voids 1 1 - Exam GENERAL DESCRIPTION: Middle-age male lying in bed in no distress RESPIRATORY SYSTEM: Unlabored breathing , decreased breath sounds at bases HEART: S1 S2 regular rate and rhythm , ABDOMEN: Soft , no tenderness EXTREMITIES: Right foot is currently dressed no drainage on the dressing - Labs CBC & Chem 7: 03/10/22 07:46 03/11/22 12:13 Labs: Abnormal Lab Results - Last 24 Hours (Table) 03/09/22 03/09/22 03/09/22 Range/Units 05:08 17:42 22:03 BUN (9-20) mg/dL Creatinine (0.66-1.25) mg/dL Glucose (74-99) mg/dL POC Glucose (mg/dL) 251 H 210 H (70-110) mg/dL Hemoglobin A1c 7.5 H (0.0-6.0) % Urine Protein (Negative) Urine Glucose (UA) (Negative) Hyaline Casts (0-2) /lpf Urine Mucus (None) /hpf 03/10/22 03/10/22 03/10/22 Range/Units 06:54 07:46 11:03 BUN 49 H (9-20) mg/dL Creatinine 3.16 H (0.66-1.25) mg/dL Glucose 173 H (74-99) mg/dL POC Glucose (mg/dL) 200 H (70-110) mg/dL Hemoglobin A1c (0.0-6.0) % Urine Protein 2+ H (Negative) Urine Glucose (UA) 3+ H (Negative) Hyaline Casts 3 H (0-2) /lpf Urine Mucus Rare H (None) /hpf 03/10/22 Range/Units 11:39 BUN (9-20) mg/dL Creatinine (0.66-1.25) mg/dL Glucose (74-99) mg/dL POC Glucose (mg/dL) 206 H (70-110) mg/dL Hemoglobin A1c (0.0-6.0) % Urine Protein (Negative) Urine Glucose (UA) (Negative) Hyaline Casts (0-2) /lpf Urine Mucus (None) /hpf Microbiology - Last 24 Hours (Table) 03/08/22 21:45 Blood Culture - Preliminary Blood No Growth after 24 hours 03/08/22 21:30 Blood Culture - Preliminary Blood No Growth after 24 hours 03/08/22 22:20 Gram Stain - Preliminary Foot - Right Wound Culture - Preliminary Presumptive MRSA Assessment and Plan (1) Diabetic infection of right foot Current Visit: Yes Status: Acute Code(s): E11.628 - TYPE 2 DIABETES MELLITUS WITH OTHER SKIN COMPLICATIONS; L08.9 - LOCAL INFECTION OF THE SKIN AND SUBCUTANEOUS TISSUE, UNSP SNOMED Code(s): 22322547 Plan: 1patient with a right diabetic foot infection with a possible abscess on the plantar aspect of the right foot failed to respond to the outpatient treatment with concern for possible gram-positive skin jessica such as MRSA. 2renal insufficiency and high risk of nephrotoxicity from vancomycin. 3vascular surgery has evaluated the patient and planning for drainage of possible abscess and deep culture tomorrow morning. 4patient will continue with daptomycin as initial culture with presumptive MRSA Time with Patient: Less than 30
--- NOTE | 2022-03-11 22:42 | P.PN ---
Subjective Progress Note Date: 03/11/22 Principal diagnosis: Right diabetic foot infection Patient is a 56 year old male with a past medical history significant for diabetes mellitus presenting to the hospital with a nonhealing wound on the plantar aspect of his right foot with purulent drainage has been diagnosed with diabetic foot infection and for underlying abscess, ER culture came back positive with presumptive MRSA On today's evaluation that is 03/11/2022, the patient continues to be afebrile, patient is breathing comfortably on room air, the patient denies chest pain shortness of breath or cough no nausea no vomiting no abdominal pain or pain to the right foot area Objective - Vital Signs Vital signs: Vital Signs Temp 97.5 F L 03/11/22 14:25 Pulse 57 L 03/11/22 14:25 Resp 16 03/11/22 14:25 BP 158/80 03/11/22 14:25 Pulse Ox 97 03/11/22 14:25 FiO2 Intake & Output 03/10/22 03/11/22 03/11/22 18:59 06:59 18:59 Intake Total 476 Balance 476 Weight 117.934 kg Intake: Oral 476 Other: Voiding Method Toilet Toilet Toilet # Voids 1 2 2 - Exam GENERAL DESCRIPTION: Middle-age male lying in bed in no distress RESPIRATORY SYSTEM: Unlabored breathing , decreased breath sounds at bases HEART: S1 S2 regular rate and rhythm , ABDOMEN: Soft , no tenderness EXTREMITIES: Right foot is currently dressed no drainage on the dressing - Labs CBC & Chem 7: 03/10/22 07:46 03/11/22 12:13 Labs: Abnormal Lab Results - Last 24 Hours (Table) 03/10/22 03/10/22 03/10/22 Range/Units 07:46 16:34 19:46 RBC 4.10 L (4.40-5.60) X 10*6/uL Hgb 11.3 L (13.0-17.0) g/dL Hct 35.7 L (39.6-50.0) % MCHC 31.7 L (32.0-37.0) g/dL Sodium (137-145) mmol/L BUN (9-20) mg/dL Creatinine (0.66-1.25) mg/dL Glucose (74-99) mg/dL POC Glucose (mg/dL) 298 H 304 H (70-110) mg/dL 03/11/22 03/11/22 03/11/22 Range/Units 05:54 07:43 11:22 RBC (4.40-5.60) X 10*6/uL Hgb (13.0-17.0) g/dL Hct (39.6-50.0) % MCHC (32.0-37.0) g/dL Sodium 136 L (137-145) mmol/L BUN 47 H (9-20) mg/dL Creatinine 2.82 H (0.66-1.25) mg/dL Glucose 203 H (74-99) mg/dL POC Glucose (mg/dL) 215 H 206 H (70-110) mg/dL 03/11/22 03/11/22 Range/Units 12:13 14:32 RBC (4.40-5.60) X 10*6/uL Hgb (13.0-17.0) g/dL Hct (39.6-50.0) % MCHC (32.0-37.0) g/dL Sodium 135 L (137-145) mmol/L BUN 45 H (9-20) mg/dL Creatinine 2.73 H (0.66-1.25) mg/dL Glucose 201 H (74-99) mg/dL POC Glucose (mg/dL) 184 H (70-110) mg/dL Microbiology - Last 24 Hours (Table) 03/08/22 22:20 Anaerobic Culture - Preliminary Foot - Right 03/08/22 21:45 Blood Culture - Preliminary Blood No Growth after 48 hours 03/08/22 21:30 Blood Culture - Preliminary Blood No Growth after 48 hours 03/08/22 22:20 Gram Stain - Final Foot - Right Wound Culture - Final Methicillin resist S. aureus Assessment and Plan (1) Diabetic infection of right foot Current Visit: Yes Status: Acute Code(s): E11.628 - TYPE 2 DIABETES MELLITUS WITH OTHER SKIN COMPLICATIONS; L08.9 - LOCAL INFECTION OF THE SKIN AND SUBCUTANEOUS TISSUE, UNSP SNOMED Code(s): 01396449 Plan: 1patient with a right diabetic foot infection with a possible abscess on the plantar aspect of the right foot failed to respond to the outpatient treatment with concern for possible gram-positive skin jessica such as MRSA. 2renal insufficiency and high risk of nephrotoxicity from vancomycin. 3vascular surgery has evaluated the patient and planning for drainage of possible abscess and deep culture this afternoon. 4patient will continue with daptomycin as initial culture has been finalized with MRSA Time with Patient: Less than 30
[2022-03-12] MEDS: HEPARIN SODIUM,PORCINE/PF 5,000 UNIT/0.5 ML SYRINGE SQ SCH ×3 (00:19→17:41)
[2022-03-12] MEDS: ACETAMINOPHEN TAB 325 MG TAB PO PRN ×2 (00:20→20:14)
[2022-03-12] MEDS: DOXAZOSIN 2 MG TAB PO SCH ×2 (02:10→09:13)
[2022-03-12 06:15] LABS: Glucose,Whole Blood 169 mg/dL (70-110)
[2022-03-12] MEDS: INSULIN ASPART (NovoLOG) 100 UNIT/ML VIAL SQ SCH ×4 (06:15→20:13)
[2022-03-12] MEDS: LIRAGLUTIDE 0.6 MG/0.1 ML SQ SCH (09:11)
[2022-03-12] MEDS: TOUJEO 300 UNIT/ML SQ SCH (09:11)
[2022-03-12] MEDS: METOPROLOL SUCCINATE (ER) 50 MG TAB.ER.24H PO SCH ×2 (09:12→20:14)
[2022-03-12] MEDS: hydrALAZINE HCL 50 MG TAB PO SCH ×3 (09:12→22:27)
[2022-03-12] MEDS: MULTIVITAMINS, THERA 1 EACH TAB PO SCH (09:12)
[2022-03-12] MEDS: amLODIPine 5 MG TAB PO SCH (09:12)
[2022-03-12] MEDS: LABETALOL 200 MG TAB PO SCH ×2 (09:13→20:14)
[2022-03-12] MEDS: ESCITALOPRAM 5 MG TAB PO SCH (09:13)
[2022-03-12] MEDS: EZETIMIBE 10 MG TAB PO SCH (09:13)
[2022-03-12 09:37] LABS: Calcium 8.8 mg/dL (8.4-10.2); Potassium 4.8 mmol/L (3.5-5.1)
--- NOTE | 2022-03-12 10:59 | P.PN ---
Subjective Patient is seen in follow-up for acute kidney injury on chronic kidney disease. Renal function fairly stable. Has been voiding. Oral intake. No vomiting or diarrhea. Underwent debridement of right lower extremity wounds on 03/11/2022. Vital signs are stable. General: Awake. No acute distress. HEENT: Head exam is unremarkable. LUNGS: Breath sounds decreased. HEART: Rate and Rhythm are regular. ABDOMEN: Soft, no distention. EXTREMITITES: No edema. No drainage noted. Objective - Vital Signs Vital signs: Vital Signs Temp 98.4 F 03/12/22 04:00 Pulse 74 03/12/22 04:00 Resp 16 03/12/22 04:00 BP 168/83 03/12/22 04:00 Pulse Ox 97 03/12/22 04:00 FiO2 Intake & Output 03/11/22 03/12/22 03/12/22 18:59 06:59 18:59 Intake Total 500 1700 Output Total 5 Balance 495 1700 Intake: IV 500 Intake, IV Titration 900 Amount Sodium Chloride 0.9% 1, 900 000 ml @ 75 mls/hr IV . [id number] [facility] Rx#:[id number] Oral 800 Output: Estimated Blood Loss 5 Other: Voiding Method Toilet Toilet # Voids 2 3 - Labs CBC & Chem 7: 03/10/22 07:46 03/12/22 06:40 Labs: Abnormal Lab Results - Last 24 Hours (Table) 03/11/22 03/11/22 03/11/22 Range/Units 11:22 12:13 14:32 Sodium 135 L (137-145) mmol/L BUN 45 H (9-20) mg/dL Creatinine 2.73 H (0.66-1.25) mg/dL Glucose 201 H (74-99) mg/dL POC Glucose (mg/dL) 206 H 184 H (70-110) mg/dL 03/11/22 03/11/22 03/12/22 Range/Units 17:34 20:49 06:13 Sodium (137-145) mmol/L BUN (9-20) mg/dL Creatinine (0.66-1.25) mg/dL Glucose (74-99) mg/dL POC Glucose (mg/dL) 143 H 226 H 169 H (70-110) mg/dL 03/12/22 Range/Units 06:40 Sodium 135 L (137-145) mmol/L BUN 41 H (9-20) mg/dL Creatinine 2.68 H (0.66-1.25) mg/dL Glucose 157 H (74-99) mg/dL POC Glucose (mg/dL) (70-110) mg/dL Microbiology - Last 24 Hours (Table) 03/11/22 17:05 Anaerobic Culture - Preliminary Foot - Right 03/11/22 17:05 Anaerobic Culture - Preliminary Toe - Right Fifth 03/11/22 17:05 Wound Culture - Preliminary Toe - Right Fifth 03/11/22 17:05 Wound Culture - Preliminary Foot - Right 03/08/22 21:45 Blood Culture - Preliminary Blood No Growth after 72 hours 03/08/22 21:30 Blood Culture - Preliminary Blood No Growth after 72 hours Assessment and Plan Plan: Assessment: 1. Acute kidney injury mostly prerenal improved with IV hydration. Creatinine was 4.04 on admission and is 2.68 today. No hydronephrosis noted on kidney ultrasound. 2. Chronic kidney disease stage IIIB with baseline creatinine near 1.6-1.8 in May 2020 secondary to diabetic kidney disease. 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 3. Hypertension with chronic kidney disease. Blood pressure remains on the higher side. 4. Diabetes mellitus. 5. Right foot infection. Wound culture positive for MRSA. Being followed by vascular surgery. Status post debridement 03/11/2022. Plan: Maintain IV fluids - decrease rate to 50 mL an hour. Continue to hold diuretics. Avoid nephrotoxins. Increase dose of Cardura.
--- NOTE | 2022-03-12 11:07 | P.CONS ---
History of Present Illness - Reason for Consult Consult date: 03/12/22 wound care - History of Present Illness This is a 56-year-old patient being seen on [facility] for nonhealing ulceration to the plantar midfoot and the webbing between the fourth and fifth digit. Patient is status post a I&D of the ulcerations. Currently awaiting wound cultures. At this time patient has a ulceration to the webbing of the fourth and fifth digit measuring approximately 6 x 1 x 1 cm with serosanguineous drainage granulation seen throughout wound bed with minimal nonviable tissue including Slough. The mid plantar foot ulceration measures approximate 1 x 1 x 0.3 cm with granulation seen throughout the wound bed wound edges are unattached to the wound base. Minimal slough noted within the wound bed. Review Of Systems: Constitutional: No fever, no chills, no night sweats. No weight change. No weakness, fatigue or lethargy. No daytime sleepiness. Integumentary:reports wounds, no lesions. No rash or pruritus. No unusual bruising. No change in hair or nails. Physical exam: General Appearance: Alert, cooperative, no distress, appears stated age. Skin: See HPI all other Skin color, texture, tugor normal, no rashes or lesions. Neurologic: Alert oriented x3 Assessment: 1. Diabetic foot ulcer 2. Nonhealing ulceration of right foot with fat layer exposure 2. Nonhealing ulceration of right foot with muscle involvement without necrosis Plan: 1.Webbing between the fourth and fifth digit/ Mid foot plantar aspect: Negative pressure wound VAC with black foam, 125 mmHg pressure. If unable to obtain a adequate seal. May use absorptive silver rope, saline moist gauze, dry gauze, rolled gauze and secure with paper tape. Change dressings on Tuesday and Tuesday. Patient would benefit from advanced wound care. We will be happy to see him in the wound care center once he is discharged. Thank you for the consultation any questions contact the wound care center DNP note has been reviewed and discussed with Dr. Zhao and the impression and plan of care has been directed as dictated. Past Medical History Past Medical History: Diabetes Mellitus, Hyperlipidemia, Hypertension History of Any Multi-Drug Resistant Organisms: MRSA Year Discovered:: 03/08/22 MDRO Source:: Right Foot Additional Past Surgical History / Comment(s): cataract surgery, foot debridement Past Anesthesia/Blood Transfusion Reactions: No Reported Reaction Past Psychological History: No Psychological Hx Reported Smoking Status: Former smoker Past Alcohol Use History: None Reported Past Drug Use History: None Reported - Past Family History Mother Family Medical History: Cancer Additional Family Medical History / Comment(s): lung ca Medications and Allergies Home Medications Medication Instructions Recorded Confirmed Type Arginine [l-Arginine] 1,000 mg PO BID 06/04/20 03/08/22 History Aspirin EC [Ecotrin] 325 mg PO DAILY 06/04/20 03/08/22 History Cinnamon Bark [Cinnamon] 1,000 mg PO BID 06/04/20 03/08/22 History Ergocalciferol [Vitamin D2 50,000 unit PO WE 06/04/20 03/08/22 History (DRISDOL)] Escitalopram [Lexapro] 5 mg PO DAILY 06/04/20 03/08/22 History Ezetimibe [Zetia] 10 mg PO DAILY 06/04/20 03/08/22 History Insulin Glargine,Hum.rec.anlog 95 units SQ DAILY 06/04/20 03/08/22 History [Toujeo Solostar] Liraglutide [Victoza 3-Jimmy] 1.8 mg SQ DAILY 06/04/20 03/08/22 History Ubidecarenone [Co Q-10] 100 mg PO DAILY 06/04/20 03/08/22 History Acetaminophen-Codeine 300-30mg 1 tab PO Q6H PRN 03/08/22 03/08/22 History [Tylenol w/codeine #3] Dapagliflozin Propanediol [Farxiga] 5 mg PO DAILY 03/08/22 03/08/22 History Doxycycline Hyclate 100 mg PO BID 03/08/22 03/08/22 History Fish Oil/Dha/Epa [Fish Oil 1,200 1 cap PO BID 03/08/22 03/08/22 History mg Fish Oil] Garlic 1,000 mg PO BID 03/08/22 03/08/22 History Labetalol HCl 200 mg PO BID 03/08/22 03/08/22 History Terazosin HCl 2 mg PO BID 03/08/22 03/08/22 History Torsemide [Demadex] 40 mg PO DAILY 03/08/22 03/08/22 History Turmeric Root Extract [Turmeric] 500 mg PO BID 03/08/22 03/08/22 History Zinc Gluconate [Zinc] 50 mg PO DAILY 03/08/22 03/08/22 History calcitrioL [Rocaltrol] 0.25 mcg PO Q48H 03/08/22 03/08/22 History hydrALAZINE HCL [Apresoline] 100 mg PO BID 03/08/22 03/08/22 History Allergies Allergy/AdvReac Type Severity Reaction Status Date / Time Penicillins Allergy Unknown Verified 03/08/22 22:50 Childhood Physical Exam Vitals: Vital Signs Temp Pulse Pulse Resp BP BP Pulse Ox 03/12/22 04:00 98.4 F 74 16 168/83 97 03/12/22 00:00 98.6 F 65 16 167/79 95 03/11/22 22:19 96.9 F L 60 16 169/81 03/11/22 20:00 98.2 F 56 L 16 167/80 96 03/11/22 18:04 60 20 158/87 97 03/11/22 18:00 56 L 16 162/78 97 03/11/22 17:45 54 L 16 164/79 100 03/11/22 17:30 54 L 18 177/84 100 03/11/22 17:15 97.8 F 55 L 12 179/84 99 03/11/22 14:25 97.5 F L 57 L 16 158/80 97 03/11/22 11:19 97.9 F 56 L 16 135/77 96 Intake and Output 03/11/22 03/12/22 03/12/22 22:59 06:59 14:59 Intake Total 300 1700 Output Total 5 Balance 295 1700 Intake: IV 300 Intake, IV Titration 900 Amount Sodium Chloride 0.9% 1, 900 000 ml @ 75 mls/hr IV . [id number] [facility] Rx#:[id number] Oral 800 Output: Estimated Blood Loss 5 Other: Voiding Method Toilet Toilet # Voids 3 Results CBC & Chem 7: 03/10/22 07:46 03/12/22 06:40 Labs: Abnormal Lab Results - Last 24 Hours (Table) 03/11/22 03/11/22 03/11/22 Range/Units 11:22 12:13 14:32 Sodium 135 L (137-145) mmol/L BUN 45 H (9-20) mg/dL Creatinine 2.73 H (0.66-1.25) mg/dL Glucose 201 H (74-99) mg/dL POC Glucose (mg/dL) 206 H 184 H (70-110) mg/dL 03/11/22 03/11/22 03/12/22 Range/Units 17:34 20:49 06:13 Sodium (137-145) mmol/L BUN (9-20) mg/dL Creatinine (0.66-1.25) mg/dL Glucose (74-99) mg/dL POC Glucose (mg/dL) 143 H 226 H 169 H (70-110) mg/dL 03/12/22 Range/Units 06:40 Sodium 135 L (137-145) mmol/L BUN 41 H (9-20) mg/dL Creatinine 2.68 H (0.66-1.25) mg/dL Glucose 157 H (74-99) mg/dL POC Glucose (mg/dL) (70-110) mg/dL Microbiology - Last 24 Hours (Table) 03/11/22 17:05 Anaerobic Culture - Preliminary Foot - Right 03/11/22 17:05 Anaerobic Culture - Preliminary Toe - Right Fifth 03/11/22 17:05 Wound Culture - Preliminary Toe - Right Fifth 03/11/22 17:05 Wound Culture - Preliminary Foot - Right 03/08/22 21:45 Blood Culture - Preliminary Blood No Growth after 72 hours 03/08/22 21:30 Blood Culture - Preliminary Blood No Growth after 72 hours Assessment and Plan (1) Non-pressure chronic ulcer of other part of right foot with muscle invo lvement without evidence of necrosis Current Visit: Yes Status: Acute Code(s): L97.515 - NON-PRS CHR ULC OTH PRT R FOOT WITH MSL INVL W/O EVD OF NECR SNOMED Code(s): 766815099 (2) Non-pressure chronic ulcer of other part of right foot with fat layer exposed Current Visit: Yes Status: Acute Code(s): L97.512 - NON-PRS CHRONIC ULCER OTH PRT RIGHT FOOT W FAT LAYER EXPOSED SNOMED Code(s): 730956260 (3) Diabetic infection of right foot Current Visit: Yes Status: Acute Code(s): E11.628 - TYPE 2 DIABETES MELLITUS WITH OTHER SKIN COMPLICATIONS; L08.9 - LOCAL INFECTION OF THE SKIN AND SUBCUTANEOUS TISSUE, UNSP SNOMED Code(s): 99624097
--- NOTE | 2022-03-12 11:45 | P.PN ---
Subjective Progress Note Date: 03/12/22 Principal diagnosis: Right foot abscess Patient seen and examined as a follow-up for nonhealing wound of the right foot. Yesterday he underwent surgical incision and drainage with deep tissue cultures. Cultures currently pending. Previous wound culture showing MRSA. He states his pain is well managed. He is afebrile. Objective - Vital Signs Vital signs: Vital Signs Temp 98.4 F 03/12/22 04:00 Pulse 74 03/12/22 04:00 Resp 16 03/12/22 04:00 BP 168/83 03/12/22 04:00 Pulse Ox 97 03/12/22 04:00 FiO2 Intake & Output 03/11/22 03/12/22 03/12/22 18:59 06:59 18:59 Intake Total 500 1700 Output Total 5 Balance 495 1700 Intake: IV 500 Intake, IV Titration 900 Amount Sodium Chloride 0.9% 1, 900 000 ml @ 75 mls/hr IV . [id number] [facility] Rx#:[id number] Oral 800 Output: Estimated Blood Loss 5 Other: Voiding Method Toilet Toilet # Voids 2 3 - Exam General appearance: The patient is alert, oriented, appears in no acute distress. HET: Head is normocephalic and atraumatic. Neck: Supple Extremities: Right foot with dressing in place. Warm to the touch, good sensation and mobility. Neurological: Alert and oriented 3. - Labs CBC & Chem 7: 03/10/22 07:46 03/12/22 06:40 Labs: Abnormal Lab Results - Last 24 Hours (Table) 03/11/22 03/11/22 03/11/22 Range/Units 07:43 11:22 12:13 Sodium 136 L 135 L (137-145) mmol/L BUN 47 H 45 H (9-20) mg/dL Creatinine 2.82 H 2.73 H (0.66-1.25) mg/dL Glucose 203 H 201 H (74-99) mg/dL POC Glucose (mg/dL) 206 H (70-110) mg/dL 03/11/22 03/11/22 03/11/22 Range/Units 14:32 17:34 20:49 Sodium (137-145) mmol/L BUN (9-20) mg/dL Creatinine (0.66-1.25) mg/dL Glucose (74-99) mg/dL POC Glucose (mg/dL) 184 H 143 H 226 H (70-110) mg/dL 03/12/22 Range/Units 06:13 Sodium (137-145) mmol/L BUN (9-20) mg/dL Creatinine (0.66-1.25) mg/dL Glucose (74-99) mg/dL POC Glucose (mg/dL) 169 H (70-110) mg/dL Microbiology - Last 24 Hours (Table) 03/11/22 17:05 Anaerobic Culture - Preliminary Foot - Right 03/11/22 17:05 Anaerobic Culture - Preliminary Toe - Right Fifth 03/11/22 17:05 Wound Culture - Preliminary Toe - Right Fifth 03/11/22 17:05 Wound Culture - Preliminary Foot - Right 03/08/22 21:45 Blood Culture - Preliminary Blood No Growth after 72 hours 03/08/22 21:30 Blood Culture - Preliminary Blood No Growth after 72 hours Assessment and Plan Assessment: 1. Diabetic foot wound right lower extremity status post incision and drainage 2. Renal insufficiency 3. Diabetic vascular disease 4. Diabetic neuropathy Plan: 1. Consistent carbohydrate diet 2. Continue medical management 3. Continue IV antibiotics per recommendations from infectious disease 4. Consult to wound clinic for local wound care. Continue wound care per their recommendations. 5. Patient is cleared for discharge from vascular surgery once cleared by infectious disease Thank you for this consultation, we will sign off at this time. The impression and plan of care has been dictated as directed. Dr. Maradiaga I performed a history and examination of this patient, discussed the same with the dictator. I agree with the dictator's note ,documented as a scribe. Any additional findings or plans will be noted.
[2022-03-12 11:54] LABS: Glucose,Whole Blood 232 mg/dL (70-110)
--- NOTE | 2022-03-12 15:19 | P.PN ---
Subjective Progress Note Date: 03/12/22 56-year-old male came in with complains of worsening right foot infection patient has a callus and a bony spur in the on the plantar surface of the right foot in the mid foot area. Patient was started on Bactrim by his physician which was discontinued couple days ago and patient was started on Keflex and doxycycline without any improvement patient was seen by scrap separator who sent him to ER. Patient is found to be in acute renal failure patient was started on vancomycin which will be switched to daptomycin because of poor function patient does have redness and infection in the web spaces as well predominantly between fourth and fifth toes. Patient baseline creatinine appears to be 1.6 and patien t the creatinine on admission was 4.5. Wound cultures were obtained patient doesn't have any fever. Had leukocytosis on admission which is improving at this time patient was on IV fluids. Patient was hyponatremic as well. As per the previous history patient doesn't appear to have any CHF but is on Demadex. Patient is bit hypotensive as well. 03/10/2022 Patient is seen and evaluated and followed this morning was currently nothing by mouth for I&D with vascular surgery although no available OR time and being bumped for tomorrow. Patient is maintained on IV antibiotics and will continue and awaiting I&D with debridement for deep tissue cultures to determine discharge antibiotics. Infectious disease is following. Patient also with kidney injury although functions are improving and creatinine is 3.16 today. Recommend repeat labs and close monitoring. We'll continue to monitor blood sugars as well as blood pressures as they were elevated and have resume some home medications. Also IV hydralazine when necessary ordered as well. Patient is continued on daptomycin for now. Patient is currently afebrile denies chest pain or shortness of breath. Patient denies nausea or vomiting and reports to feeling hungry but reports he is nothing by mouth for the possible procedure. 03/11/2022 Patient is seen in follow-up this morning currently nothing by mouth again as patient is scheduled to undergo I&D with vascular surgery this afternoon. Vascular surgery, infectious disease, and nephrology following. Kidney functions improving and BUN is 45 with a creatinine of 2.73. Blood sugars mildly elevated and has brought in his touelmer antoine and requesting to switch to this as patient has had complications with other insulins in the outpatient setting and has been started on these medications with improvement in blood sugars for quite some time. Discussed with nursing staff with pharmacy to verify to use patient's home medications and will resume this. Recommend Accu- Cheks before meals and at bedtime. Patient okay to resume oral diabetic agents after surgery. ID following and patient is maintained on daptomycin with the wound culture showing MRSA and will most likely need IV antibiotics on discharge. Patient to obtain deep tissue cultures during procedure. Patient is afebrile denies chest pain or shortness of breath. 03/12/2022 Patient is seen and evaluated in follow-up this morning status post I&D with vascular surgery and has been cleared by vascular surgery services for discharge although pending wound consult with possible wound VAC placement. Deep tissue cultures were obtained and ID following closely as patient is maintained on daptomycin. Culture showed MRSA although waiting for deep tissue cultures to finalized. Blood sugars being monitored and home medications have been resumed. Patient's blood pressures continue to be mildly elevated and changing amlodipine from 5 up to 10 mg daily. Patient is afebrile and denies chest pain or shortness of breath. Patient denies nausea or vomiting and is tolerating diet. Nephrology following and kidney functions trending down and creatinine is currently down to 2.68. Patient will be scheduled to receive a PICC line in the dominant arm for outpatient IV antibiotic therapy. Case management following although we are continuing to wait for finalized cultures. Recommend repeat labs in a.m. Review of systems: Constitutional: No reports of fatigue, fever, or chills Cardiovascular: No reports of chest pain or palpitations Respiratory: No reports of shortness of breath or cough GI: No reports of nausea, vomiting, or diarrhea : No reports of dysuria or retention Neurovascular: No reports of weakness or numbness, reports some right foot discomfort at the surgical site at the time of exam was being redressed and evaluated by wound care All medications have been reviewed Active Medications Acetaminophen (Acetaminophen Tab 325 Mg Tab) 650 mg PO Q6HR PRN PRN Reason: Mild Pain or Fever > 100.5 Last Admin: 03/12/22 00:20 Dose: 650 mg Hydrocodone Bitart/Acetaminophen (Hydrocodone/Apap 7.5-325mg 1 Each Tab) 1 each PO Q6HR PRN PRN Reason: Pain Last Admin: 03/09/22 20:05 Dose: 1 each Amlodipine Besylate (Amlodipine 10 Mg Tab) 10 mg PO DAILY [facility] Dextrose/Water (Dextrose 50% Syringe 50 Ml) 25 ml IVP PER PROTOCOL PRN; Protocol PRN Reason: Hypoglycemia Dextrose/Water (Dextrose 50% Syringe 50 Ml) 50 ml IVP PER PROTOCOL PRN; Protocol PRN Reason: Hypoglycemia Doxazosin Mesylate (Doxazosin 4 Mg Tab) 4 mg PO BID [facility] Ezetimibe (Ezetimibe 10 Mg Tab) 10 mg PO DAILY [facility] Last Admin: 03/12/22 09:13 Dose: 10 mg Escitalopram Oxalate (Escitalopram 5 Mg Tab) 5 mg PO DAILY [facility] Last Admin: 03/12/22 09:13 Dose: 5 mg Heparin Sodium (Porcine) (Heparin Sodium,Porcine/Pf 5,000 Unit/0.5 Ml Syringe) 5,000 unit SQ Q8HR [facility] Last Admin: 03/12/22 09:11 Dose: 5,000 unit Hydralazine HCl (Hydralazine Hcl 50 Mg Tab) 100 mg PO TID [facility] Last Admin: 03/12/22 09:12 Dose: 100 mg Sodium Chloride (Saline 0.9%) 1,000 mls @ 50 mls/hr IV .Q20H [facility] Last Admin: 03/11/22 21:00 Dose: 75 mls/hr Daptomycin 600 mg/ Sodium (Chloride) 50 mls @ 100 mls/hr IVPB Q24H [facility]; Protocol Last Admin: 03/12/22 12:38 Dose: 100 mls/hr Insulin Aspart (Insulin Aspart (Novolog) 100 Unit/Ml Vial) 0 unit SQ ACHS [facility]; Protocol Last Admin: 03/12/22 12:38 Dose: 4 unit Labetalol HCl (Labetalol 200 Mg Tab) 200 mg PO BID [facility] Last Admin: 03/12/22 09:13 Dose: 200 mg Metoprolol Succinate (Metoprolol Succinate (Er) 50 Mg Tab.Er.24h) 75 mg PO BID [facility] Last Admin: 03/12/22 09:12 Dose: 75 mg Multivitamins (Multivitamins, Thera 1 Each Tab) 1 each PO DAILY [facility] Last Admin: 03/12/22 09:12 Dose: 1 each Naloxone HCl (Naloxone 0.4 Mg/Ml 1 Ml Vial) 0.2 mg IV Q2M PRN PRN Reason: Opioid Reversal Non Formulary Drug ( Liraglutide [Victoza ] 0.6 Mg/0.1 Ml Pen. Injctr) 1.8 mg SQ DAILY [facility] Last Admin: 03/12/22 09:11 Dose: 1.8 mg Toujeo 300 Units/Ml (Pen) 95 each SQ DAILY [facility] Last Admin: 03/12/22 09:11 Dose: 95 each Tramadol HCl (Tramadol 50 Mg Tab) 50 mg PO QID PRN PRN Reason: Pain/Discomfort Last Admin: 03/10/22 03:44 Dose: 50 mg PHYSICAL EXAMINATION: GENERAL: The patient is alert and oriented x3, not in any acute distress. Well developed, well nourished. HEENT: Pupils are round and equally reacting to light. EOMI. No scleral icterus. No conjunctival pallor. Normocephalic, atraumatic. No pharyngeal erythema. No thyromegaly. CARDIOVASCULAR: S1 and S2 present. No murmurs, rubs, or gallops. PULMONARY: Chest is clear to auscultation, no wheezing or crackles. ABDOMEN: Soft, nontender, nondistended, normoactive bowel sounds. No palpable organomegaly. MUSCULOSKELETAL: No joint swelling or deformity. EXTREMITIES: No cyanosis, clubbing, or pedal edema. NEUROLOGICAL: Gross neurological examination did not reveal any focal deficits. SKIN: Currently with a dressing status post I&D of the right foot on the dressing is saturated with blood although being undressed and evaluated with wound care at the bedside Assessment: -Right foot cellulitis and wound infection: Patient is continued on daptomycin and awaiting deep tissue cultures that were obtained with I&D yesterday with vascular surgery, wound culture showing MRSA and will need IV antibiotics on discharge. Awaiting deep tissue cultures -Acute renal failure on chronic kidney disease stage III acute renal failure probably secondary to probably Bactrim along with diuretics as well as hypotension, improving and nephrology following, creatinine down to 2.68 -Type 2 diabetes mellitus and diabetic foot infection. Recommend resuming home medications as his blood sugars are more regulated on these medications and has brought been in okay to resume -Hypertension -DVT prophylaxis: Subcutaneous heparin -Full code Plan: Recommend continue with IV antibiotics in the form of daptomycin with infectious disease along with nephrology and vascular surgery following. Vascular surgery performed I&D with deep tissue cultures yesterday and has cleared the patient for discharge. Wound care also consulted and planning for possible wound VAC. Patient is to receive a PICC line with case management following and arranging for possible outpatient antibiotics along with wound VAC and wound care as well as home care once discharged. Recommend to wait for deep tissue cultures to determine discharge antibiotics. Kidney functions trending down and nephrology following and recommend follow-up labs in the a.m. Adjustments to blood pressure medications have been made today is patient's continues to be hypertensive and will increase his Norvasc to 10 mg daily. Continue other medications. Recommend Accu-Cheks before meals and at bedtime and will continue his current medication regimen. The impression and plan of care has been dictated by Christine Corcoran, Nurse Practitioner as directed. Dr. Cl MD I have performed a history and examination and MDM of this patient, discussed the same with the dictator, and agree with the dictator's assessment and plan as written ,documented as a scribe. Based on total visit time, I have performed more than 50% of the visit. Objective - Vital Signs Vital signs: Vital Signs Temp 99.0 F 03/12/22 09:05 Pulse 69 03/12/22 09:05 Resp 16 03/12/22 09:05 BP 172/82 03/12/22 09:05 Pulse Ox 97 03/12/22 09:05 FiO2 Intake & Output 03/11/22 03/12/22 03/12/22 18:59 06:59 18:59 Intake Total 500 1700 Output Total 5 Balance 495 1700 Weight 117.934 kg Intake: IV 500 Intake, IV Titration 900 Amount Sodium Chloride 0.9% 1, 900 000 ml @ 75 mls/hr IV . [id number] [facility] Rx#:[id number] Oral 800 Output: Estimated Blood Loss 5 Other: Voiding Method Toilet Toilet Toilet # Voids 2 3 - Labs CBC & Chem 7: 03/10/22 07:46 03/12/22 06:40 Labs: Abnormal Lab Results - Last 24 Hours (Table) 03/11/22 03/11/22 03/12/22 Range/Units 17:34 20:49 06:13 Sodium (137-145) mmol/L BUN (9-20) mg/dL Creatinine (0.66-1.25) mg/dL Glucose (74-99) mg/dL POC Glucose (mg/dL) 143 H 226 H 169 H (70-110) mg/dL 03/12/22 03/12/22 Range/Units 06:40 11:52 Sodium 135 L (137-145) mmol/L BUN 41 H (9-20) mg/dL Creatinine 2.68 H (0.66-1.25) mg/dL Glucose 157 H (74-99) mg/dL POC Glucose (mg/dL) 232 H (70-110) mg/dL Microbiology - Last 24 Hours (Table) 03/11/22 17:05 Anaerobic Culture - Preliminary Foot - Right 03/11/22 17:05 Anaerobic Culture - Preliminary Toe - Right Fifth 03/11/22 17:05 Wound Culture - Preliminary Toe - Right Fifth 03/11/22 17:05 Wound Culture - Preliminary Foot - Right 03/08/22 21:45 Blood Culture - Preliminary Blood No Growth after 72 hours 03/08/22 21:30 Blood Culture - Preliminary Blood No Growth after 72 hours
--- NOTE | 2022-03-12 15:45 | P.PN ---
Subjective Progress Note Date: 03/12/22 Principal diagnosis: Right diabetic foot infection Patient is a 56 year old male with a past medical history significant for diabetes mellitus presenting to the hospital with a nonhealing wound on the plantar aspect of his right foot with purulent drainage has been diagnosed with diabetic foot infection and for underlying abscess, patient is status post surgical drainage of this abscess which was extended down to the bone per the operative report on 03/11/2022 On today's evaluation that is 03/12/2022, the patient remains to be afebrile, patient is breathing comfortably on room air, the patient denies chest pain shortness of breath or cough no nausea no vomiting no abdominal pain or pain to the right foot area, no new symptoms Objective - Vital Signs Vital signs: Vital Signs Temp 99.0 F 03/12/22 09:05 Pulse 69 03/12/22 09:05 Resp 16 03/12/22 09:05 BP 172/82 03/12/22 09:05 Pulse Ox 97 03/12/22 09:05 FiO2 Intake & Output 03/11/22 03/12/22 03/12/22 18:59 06:59 18:59 Intake Total 500 1700 Output Total 5 Balance 495 1700 Intake: IV 500 Intake, IV Titration 900 Amount Sodium Chloride 0.9% 1, 900 000 ml @ 75 mls/hr IV . [id number] [facility] Rx#:[id number] Oral 800 Output: Estimated Blood Loss 5 Other: Voiding Method Toilet Toilet Toilet # Voids 2 3 - Exam GENERAL DESCRIPTION: Middle-age male lying in bed in no distress RESPIRATORY SYSTEM: Unlabored breathing , decreased breath sounds at bases HEART: S1 S2 regular rate and rhythm , ABDOMEN: Soft , no tenderness EXTREMITIES: Right foot is currently dressed no drainage on the dressing - Labs CBC & Chem 7: 03/10/22 07:46 03/12/22 06:40 Labs: Abnormal Lab Results - Last 24 Hours (Table) 03/11/22 03/11/22 03/11/22 Range/Units 12:13 14:32 17:34 Sodium 135 L (137-145) mmol/L BUN 45 H (9-20) mg/dL Creatinine 2.73 H (0.66-1.25) mg/dL Glucose 201 H (74-99) mg/dL POC Glucose (mg/dL) 184 H 143 H (70-110) mg/dL 03/11/22 03/12/22 03/12/22 Range/Units 20:49 06:13 06:40 Sodium 135 L (137-145) mmol/L BUN 41 H (9-20) mg/dL Creatinine 2.68 H (0.66-1.25) mg/dL Glucose 157 H (74-99) mg/dL POC Glucose (mg/dL) 226 H 169 H (70-110) mg/dL 03/12/22 Range/Units 11:52 Sodium (137-145) mmol/L BUN (9-20) mg/dL Creatinine (0.66-1.25) mg/dL Glucose (74-99) mg/dL POC Glucose (mg/dL) 232 H (70-110) mg/dL Microbiology - Last 24 Hours (Table) 03/11/22 17:05 Anaerobic Culture - Preliminary Foot - Right 03/11/22 17:05 Anaerobic Culture - Preliminary Toe - Right Fifth 03/11/22 17:05 Wound Culture - Preliminary Toe - Right Fifth 03/11/22 17:05 Wound Culture - Preliminary Foot - Right 03/08/22 21:45 Blood Culture - Preliminary Blood No Growth after 72 hours 03/08/22 21:30 Blood Culture - Preliminary Blood No Growth after 72 hours Assessment and Plan (1) Diabetic infection of right foot Current Visit: Yes Status: Acute Code(s): E11.628 - TYPE 2 DIABETES MELLITUS WITH OTHER SKIN COMPLICATIONS; L08.9 - LOCAL INFECTION OF THE SKIN AND SUBCUTANEOUS TISSUE, UNSP SNOMED Code(s): 43447845 Plan: 1patient with a right diabetic foot infection with a possible abscess on the plantar aspect of the right foot failed to respond to the outpatient treatment with concern for possible gram-positive skin jessica such as MRSA. 2renal insufficiency and high risk of nephrotoxicity from vancomycin. 3vascular surgery has evaluated the patient and is status post drainage of possible abscess extending down to the bone. 4patient will need PICC line for outpatient IV antibiotic therapy, patient to continue with daptomycin Time with Patient: Less than 30
[2022-03-12 16:36] LABS: Glucose,Whole Blood 167 mg/dL (70-110)
[2022-03-12 20:05] LABS: Glucose,Whole Blood 217 mg/dL (70-110)
[2022-03-12] MEDS: DOXAZOSIN 4 MG TAB PO SCH (20:13)
[2022-03-13] MEDS: HEPARIN SODIUM,PORCINE/PF 5,000 UNIT/0.5 ML SYRINGE SQ SCH ×4 (00:03→23:27)
[2022-03-13] MEDS: SODIUM CHLORIDE 0.9% 1,000 ML IV SCH (01:21)
[2022-03-13 06:05] LABS: Glucose,Whole Blood 157 mg/dL (70-110)
[2022-03-13] MEDS: INSULIN ASPART (NovoLOG) 100 UNIT/ML VIAL SQ SCH ×4 (06:06→19:56)
[2022-03-13 06:49] LABS: Basophils % (A) 0 %; Eosinophils # (A) 0.2 k/uL (0-0.7); Eosinophils % (A) 3 %; HCT 33.5 % (39.0-53.0); HGB 10.9 gm/dL (13.0-17.5); Lymphocytes # (A) 1.6 k/uL (1.0-4.8); Lymphocytes % (A) 27 %; MCH 28.4 pg (25.0-35.0); MCHC 32.5 g/dL (31.0-37.0); MCV 87.3 fL (80.0-100.0); Mean Platelet Volume 8.1; Monocytes # (A) 0.4 k/uL (0-1.0); Monocytes % (A) 7 %; Neutrophils # (A) 3.4 k/uL (1.3-7.7); Neutrophils % (A) 59 %; Platelet Count 263 k/uL (150-450); RBC 3.83 m/uL (4.30-5.90); RDW 12.1 % (11.5-15.5); WBC 5.8 k/uL (3.8-10.6)
[2022-03-13 07:38] LABS: Calcium 8.7 mg/dL (8.4-10.2); Potassium 4.5 mmol/L (3.5-5.1)
[2022-03-13] MEDS: EZETIMIBE 10 MG TAB PO SCH (09:59)
[2022-03-13] MEDS: METOPROLOL SUCCINATE (ER) 50 MG TAB.ER.24H PO SCH ×2 (09:59→19:57)
[2022-03-13] MEDS: DOXAZOSIN 4 MG TAB PO SCH ×2 (09:59→19:58)
[2022-03-13] MEDS: MULTIVITAMINS, THERA 1 EACH TAB PO SCH (09:59)
[2022-03-13] MEDS: amLODIPine 10 MG TAB PO SCH (09:59)
[2022-03-13] MEDS: ESCITALOPRAM 5 MG TAB PO SCH (10:00)
[2022-03-13] MEDS: hydrALAZINE HCL 50 MG TAB PO SCH ×3 (10:00→22:16)
[2022-03-13] MEDS: LABETALOL 200 MG TAB PO SCH ×2 (10:00→19:58)
[2022-03-13] MEDS: TOUJEO 300 UNIT/ML SQ SCH (10:10)
[2022-03-13] MEDS: LIRAGLUTIDE 0.6 MG/0.1 ML SQ SCH (10:10)
--- NOTE | 2022-03-13 10:35 | P.PN ---
Subjective Patient is seen in follow-up for acute kidney injury on chronic kidney disease. Renal functionbetter today. Has been voiding. Oral intake. No vomiting or diarrhea. Underwent debridement of right lower extremity wounds on 03/11/2022. no active complaints. blood pressure high. Vital signs are stable. General: Awake. No acute distress. HEENT: Head exam is unremarkable. LUNGS: Breath sounds decreased. HEART: Rate and Rhythm are regular. ABDOMEN: Soft, no distention. EXTREMITITES: 1+ edema. No drainage noted. Objective - Vital Signs Vital signs: Vital Signs Temp 98.6 F 03/13/22 04:00 Pulse 77 03/13/22 04:00 Resp 16 03/13/22 04:00 BP 181/88 03/13/22 04:00 Pulse Ox 98 03/13/22 04:00 FiO2 Intake & Output 03/12/22 03/13/22 03/13/22 18:59 06:59 18:59 Intake Total 360 1325 Balance 360 1325 Weight 117.934 kg Intake: Intake, IV Titration 600 Amount Sodium Chloride 0.9% 1, 600 000 ml @ 50 mls/hr IV . Q20H [facility] Rx#:[id number] Oral 360 725 Other: Voiding Method Toilet Toilet # Voids 2 1 - Labs CBC & Chem 7: 03/13/22 05:58 03/13/22 05:58 Labs: Abnormal Lab Results - Last 24 Hours (Table) 03/12/22 03/12/22 03/12/22 Range/Units 11:52 16:35 20:01 RBC (4.30-5.90) m/uL Hgb (13.0-17.5) gm/dL Hct (39.0-53.0) % Sodium (137-145) mmol/L BUN (9-20) mg/dL Creatinine (0.66-1.25) mg/dL Glucose (74-99) mg/dL POC Glucose (mg/dL) 232 H 167 H 217 H (70-110) mg/dL 03/13/22 03/13/22 03/13/22 Range/Units 05:58 05:58 06:00 RBC 3.83 L (4.30-5.90) m/uL Hgb 10.9 L (13.0-17.5) gm/dL Hct 33.5 L (39.0-53.0) % Sodium 134 L (137-145) mmol/L BUN 39 H (9-20) mg/dL Creatinine 2.23 H (0.66-1.25) mg/dL Glucose 155 H (74-99) mg/dL POC Glucose (mg/dL) 157 H (70-110) mg/dL Microbiology - Last 24 Hours (Table) 03/11/22 17:05 Gram Stain - Preliminary Foot - Right Wound Culture - Preliminary Presumptive MRSA 03/11/22 17:05 Gram Stain - Preliminary Toe - Right Fifth Wound Culture - Preliminary Presumptive MRSA 03/08/22 21:45 Blood Culture - Preliminary Blood No Growth after 96 hours 03/08/22 21:30 Blood Culture - Preliminary Blood No Growth after 96 hours 03/08/22 22:20 Anaerobic Culture - Final Foot - Right Assessment and Plan Plan: Assessment: 1. Acute kidney injury mostly prerenal improved with IV hydration. Creatinine was 4.04 on admission and is 2.23 today. No hydronephrosis noted on kidney ultrasound. 2. Chronic kidney disease stage IIIB with baseline creatinine near 1.6-1.8 in May 2020 secondary to diabetic kidney disease. Patient follows with cuprous chloride helper out of [place], [place]. 3. Hypertension with chronic kidney disease. Blood pressure remains on the higher side. 4. Diabetes mellitus. 5. Right foot infection. Wound culture positive for MRSA. Being followed by vascular surgery. Status post debridement 03/11/2022. Plan: Hep-Lock IV fluids. Continue to hold diuretics. Avoid nephrotoxins. add Lasix 40 mg once today.
[2022-03-13 12:00] LABS: Glucose,Whole Blood 281 mg/dL (70-110)
--- NOTE | 2022-03-13 12:15 | P.PN ---
Subjective Progress Note Date: 03/13/22 56-year-old male came in with complains of worsening right foot infection patient has a callus and a bony spur in the on the plantar surface of the right foot in the mid foot area. Patient was started on Bactrim by his physician which was discontinued couple days ago and patient was started on Keflex and doxycycline without any improvement patient was seen by seed and fertilizer specialist who sent him to ER. Patient is found to be in acute renal failure patient was started on vancomycin which will be switched to daptomycin because of poor function patient does have redness and infection in the web spaces as well predominantly between fourth and fifth toes. Patient baseline creatinine appears to be 1.6 and patient the creatinine on admission was 4.5. Wound cultures were obtained patient doesn't have any fever. Had leukocytosis on admission which is improving at this time patient was on IV fluids. Patient was hyponatremic as well. As per the previous history patient doesn't appear to have any CHF but is on Demadex. Patient is bit hypotensive as well. 03/10/2022 Patient is seen and evaluated and followed this morning was currently nothing by mouth for I&D with vascular surgery although no available OR time and being bumped for tomorrow. Patient is maintained on IV antibiotics and will continue and awaiting I&D with debridement for deep tissue cultures to determine discharge antibiotics. Infectious disease is following. Patient also with kidney injury although functions are improving and creatinine is 3.16 today. Recommend repeat labs and close monitoring. We'll continue to monitor blood sugars as well as blood pressures as they were elevated and have resume some home medications. Also IV hydralazine when necessary ordered as well. Patient is continued on daptomycin for now. Patient is currently afebrile denies chest pain or shortness of breath. Patient denies nausea or vomiting and reports to feeling hungry but reports he is nothing by mouth for the possible procedure. 03/11/2022 Patient is seen in follow-up this morning currently nothing by mouth again as patient is scheduled to undergo I&D with vascular surgery this afternoon. Vascular surgery, infectious disease, and nephrology following. Kidney functions improving and BUN is 45 with a creatinine of 2.73. Blood sugars mildly elevated and has brought in his touelmer antoine and requesting to switch to this as patient has had complications with other insulins in the outpatient setting and has been started on these medications with improvement in blood sugars for quite some time. Discussed with nursing staff with pharmacy to verify to use patient's home medications and will resume this. Recommend Accu- Cheks before meals and at bedtime. Patient okay to resume oral diabetic agents after surgery. ID following and patient is maintained on daptomycin with the wound culture showing MRSA and will most likely need IV antibiotics on discharge. Patient to obtain deep tissue cultures during procedure. Patient is afebrile denies chest pain or shortness of breath. 03/12/2022 Patient is seen and evaluated in follow-up this morning status post I&D with vascular surgery and has been cleared by vascular surgery services for discharge although pending wound consult with possible wound VAC placement. Deep tissue cultures were obtained and ID following closely as patient is maintained on daptomycin. Culture showed MRSA although waiting for deep tissue cultures to finalized. Blood sugars being monitored and home medications have been resumed. Patient's blood pressures continue to be mildly elevated and changing amlodipine from 5 up to 10 mg daily. Patient is afebrile and denies chest pain or shortness of breath. Patient denies nausea or vomiting and is tolerating diet. Nephrology following and kidney functions trending down and creatinine is currently down to 2.68. Patient will be scheduled to receive a PICC line in the dominant arm for outpatient IV antibiotic therapy. Case management following although we are continuing to wait for finalized cultures. Recommend repeat labs in a.m. 03/13/2022 Patient is evaluated resting in bed. Pending PICC line placement with IR which most likely won't be until tuesday. Did discuss with [facility] as they were here today however did not hear back. Creatinine today is 2.23, improving. Recommendations from wound care services for wound VAC placement. Wound cultures are pending finalized. Blood pressure continues to be elevated 180s systolic. Lasix daily added by nephrology. Sodium 134, hgb stable at 10.9. Blood glucose in the 280s. Review of systems: Constitutional: No reports of fatigue, fever, or chills Cardiovascular: No reports of chest pain or palpitations Respiratory: No reports of shortness of breath or cough GI: No reports of nausea, vomiting, or diarrhea : No reports of dysuria or retention Neurovascular: No reports of weakness or numbness, reports some right foot discomfort at the surgical site at the time of exam was being redressed and evaluated by wound care All medications have been reviewed PHYSICAL EXAMINATION: GENERAL: The patient is alert and oriented x3, not in any acute distress. Well developed, well nourished. HEENT: Pupils are round and equally reacting to light. EOMI. No scleral icterus. No conjunctival pallor. Normocephalic, atraumatic. No pharyngeal erythema. No thyromegaly. CARDIOVASCULAR: S1 and S2 present. No murmurs, rubs, or gallops. PULMONARY: Chest is clear to auscultation, no wheezing or crackles. ABDOMEN: Soft, nontender, nondistended, normoactive bowel sounds. No palpable organomegaly. MUSCULOSKELETAL: No joint swelling or deformity. EXTREMITIES: No cyanosis, clubbing, or pedal edema. NEUROLOGICAL: Gross neurological examination did not reveal any focal deficits. SKIN: Currently with a dressing status post I&D of the right foot on the dressing is saturated with blood although being undressed and evaluated with wound care at the bedside Assessment: -Right foot cellulitis and wound infection: Patient is continued on daptomycin and awaiting deep tissue cultures that were obtained with I&D yesterday with vascular surgery, wound culture showing MRSA and will need IV antibiotics on discharge. Awaiting deep tissue cultures -Acute renal failure on chronic kidney disease stage III acute renal failure probably secondary to probably Bactrim along with diuretics as well as hypotension, improving and nephrology following, creatinine down to 2.23 -Type 2 diabetes mellitus and diabetic foot infection. Recommend resuming home medications as his blood sugars are more regulated on these medications and has brought been in okay to resume -Hypertension -DVT prophylaxis: Subcutaneous heparin -Full code Plan: Recommend continue with IV antibiotics in the form of daptomycin with infectious disease along with nephrology and vascular surgery following. Vascular surgery performed I&D with deep tissue cultures yesterday and has cleared the patient for discharge. Wound care also consulted and recommends for wound VAC and if unable to obtain good seal than use absorptive silver rope, saline moist gauze, dry gauze, rolled gauze and secure with paper tape to be changed tuesday, tuesday, tuesday. Patient is to receive a PICC line with case management following and arranging for possible outpatient antibiotics along with wound VAC and wound care as well as home care once discharged. Recommend to wait for deep tissue cultures to determine discharge antibiotics. Continue on increased dose of norvasc, nephrology has added lasix 40 mg po daily. Continue to monitor blood pressure and repeat BMP in AM. PICC line will have to be completed on Tuesday when interventional radiology is available. The impression and plan of care has been dictated by Mimi Smith Nurse Practitioner as directed. Dr. Cl MD I have performed a history and physical examination and medical decision making of this patient, discussed the same with the dictator, and agree with the dictators assessment and plan as written, documented as a scribe. Based on total visit time, I have performed more than 50% of this visit. Objective - Vital Signs Vital signs: Vital Signs Temp 98.5 F 03/13/22 10:00 Pulse 77 03/13/22 10:00 Resp 16 03/13/22 10:00 BP 183/86 03/13/22 10:00 Pulse Ox 98 03/13/22 10:00 FiO2 Intake & Output 03/12/22 03/13/22 03/13/22 18:59 06:59 18:59 Intake Total 360 1325 240 Balance 360 1325 240 Weight 117.934 kg Intake: Intake, IV Titration 600 Amount Sodium Chloride 0.9% 1, 600 000 ml @ 50 mls/hr IV . Q20H [facility] Rx#:[id number] Oral 360 745 240 Other: Voiding Method Toilet Toilet Toilet # Voids 2 1 - Labs CBC & Chem 7: 03/13/22 05:58 03/13/22 05:58 Labs: Abnormal Lab Results - Last 24 Hours (Table) 03/12/22 03/12/22 03/13/22 Range/Units 16:35 20:01 05:58 RBC 3.83 L (4.30-5.90) m/uL Hgb 10.9 L (13.0-17.5) gm/dL Hct 33.5 L (39.0-53.0) % Sodium (137-145) mmol/L BUN (9-20) mg/dL Creatinine (0.66-1.25) mg/dL Glucose (74-99) mg/dL POC Glucose (mg/dL) 167 H 217 H (70-110) mg/dL 03/13/22 03/13/22 03/13/22 Range/Units 05:58 06:00 11:53 RBC (4.30-5.90) m/uL Hgb (13.0-17.5) gm/dL Hct (39.0-53.0) % Sodium 134 L (137-145) mmol/L BUN 39 H (9-20) mg/dL Creatinine 2.23 H (0.66-1.25) mg/dL Glucose 155 H (74-99) mg/dL POC Glucose (mg/dL) 157 H 281 H (70-110) mg/dL Microbiology - Last 24 Hours (Table) 03/11/22 17:05 Gram Stain - Preliminary Foot - Right Wound Culture - Preliminary Presumptive MRSA 03/11/22 17:05 Gram Stain - Preliminary Toe - Right Fifth Wound Culture - Preliminary Presumptive MRSA 03/08/22 21:45 Blood Culture - Preliminary Blood No Growth after 96 hours 03/08/22 21:30 Blood Culture - Preliminary Blood No Growth after 96 hours 03/08/22 22:20 Anaerobic Culture - Final Foot - Right Assessment and Plan Time with Patient: Less than 30
[2022-03-13] MEDS: FUROSEMIDE 40 MG TAB PO SCH (13:03)
--- NOTE | 2022-03-13 15:16 | P.PN ---
Subjective Progress Note Date: 03/13/22 Principal diagnosis: Right diabetic foot infection Patient is a 56 year old male with a past medical history significant for diabetes mellitus presenting to the hospital with a nonhealing wound on the plantar aspect of his right foot with purulent drainage has been diagnosed with diabetic foot infection and for underlying abscess, patient is status post surgical drainage of this abscess which was extended down to the bone per the operative report on 03/11/2022 On today's evaluation that is 03/13/2022, the patient continues to be afebrile, patient is breathing comfortably on room air, the patient denies chest pain shortness of breath or cough , the patient denies nausea no vomiting no abdominal pain or pain to the right foot area, overall feeling better Objective - Vital Signs Vital signs: Vital Signs Temp 98.4 F 03/13/22 12:00 Pulse 71 03/13/22 12:00 Resp 16 03/13/22 12:00 BP 133/70 03/13/22 12:00 Pulse Ox 99 03/13/22 12:00 FiO2 Intake & Output 03/12/22 03/13/22 03/13/22 18:59 06:59 18:59 Intake Total 360 1325 480 Balance 360 1325 480 Weight 117.934 kg Intake: Intake, IV Titration 600 Amount Sodium Chloride 0.9% 1, 600 000 ml @ 50 mls/hr IV . Q20H [facility] Rx#:[id number] Oral 360 968 480 Other: Voiding Method Toilet Toilet Toilet # Voids 2 1 - Exam GENERAL DESCRIPTION: Middle-age male lying in bed in no distress RESPIRATORY SYSTEM: Unlabored breathing , decreased breath sounds at bases HEART: S1 S2 regular rate and rhythm , ABDOMEN: Soft , no tenderness EXTREMITIES: Right foot is currently dressed no drainage on the dressing - Labs CBC & Chem 7: 03/13/22 05:58 03/13/22 05:58 Labs: Abnormal Lab Results - Last 24 Hours (Table) 03/12/22 03/12/22 03/13/22 Range/Units 16:35 20:01 05:58 RBC 3.83 L (4.30-5.90) m/uL Hgb 10.9 L (13.0-17.5) gm/dL Hct 33.5 L (39.0-53.0) % Sodium (137-145) mmol/L BUN (9-20) mg/dL Creatinine (0.66-1.25) mg/dL Glucose (74-99) mg/dL POC Glucose (mg/dL) 167 H 217 H (70-110) mg/dL 03/13/22 03/13/22 03/13/22 Range/Units 05:58 06:00 11:53 RBC (4.30-5.90) m/uL Hgb (13.0-17.5) gm/dL Hct (39.0-53.0) % Sodium 134 L (137-145) mmol/L BUN 39 H (9-20) mg/dL Creatinine 2.23 H (0.66-1.25) mg/dL Glucose 155 H (74-99) mg/dL POC Glucose (mg/dL) 157 H 281 H (70-110) mg/dL Microbiology - Last 24 Hours (Table) 03/11/22 17:05 Gram Stain - Preliminary Foot - Right Wound Culture - Preliminary Presumptive MRSA 03/11/22 17:05 Gram Stain - Preliminary Toe - Right Fifth Wound Culture - Preliminary Presumptive MRSA 03/08/22 21:45 Blood Culture - Preliminary Blood No Growth after 96 hours 03/08/22 21:30 Blood Culture - Preliminary Blood No Growth after 96 hours 03/08/22 22:20 Anaerobic Culture - Final Foot - Right Assessment and Plan (1) Diabetic infection of right foot Current Visit: Yes Status: Acute Code(s): E11.628 - TYPE 2 DIABETES MELLITUS WITH OTHER SKIN COMPLICATIONS; L08.9 - LOCAL INFECTION OF THE SKIN AND SUBCUTANEOUS TISSUE, UNSP SNOMED Code(s): 44730709 Plan: 1patient with a right diabetic foot infection with a possible abscess on the plantar aspect of the right foot failed to respond to the outpatient treatment with concern for possible gram-positive skin jessica such as MRSA. 2renal insufficiency and high risk of nephrotoxicity from vancomycin. 3vascular surgery has evaluated the patient and is status post drainage of possible abscess extending down to the bone. 4patient currently waiting for PICC line for outpatient IV antibiotic therapy, patient did culture finalized with MRSA, patient to continue with daptomycin Time with Patient: Less than 30
[2022-03-13 17:46] LABS: Glucose,Whole Blood 229 mg/dL (70-110)
[2022-03-13 19:54] LABS: Glucose,Whole Blood 187 mg/dL (70-110)
[2022-03-14 06:33] LABS: Glucose,Whole Blood 119 mg/dL (70-110)
[2022-03-14] MEDS: ACETAMINOPHEN TAB 325 MG TAB PO PRN (06:33)
[2022-03-14] MEDS: INSULIN ASPART (NovoLOG) 100 UNIT/ML VIAL SQ SCH ×4 (06:33→21:04)
[2022-03-14 07:17] LABS: Calcium 8.8 mg/dL (8.4-10.2); Magnesium 1.8 mg/dL (1.6-2.3); Potassium 4.3 mmol/L (3.5-5.1)
[2022-03-14] MEDS: EZETIMIBE 10 MG TAB PO SCH (08:46)
[2022-03-14] MEDS: LABETALOL 200 MG TAB PO SCH ×2 (08:46→21:03)
[2022-03-14] MEDS: DOXAZOSIN 4 MG TAB PO SCH (08:46)
[2022-03-14] MEDS: MULTIVITAMINS, THERA 1 EACH TAB PO SCH (08:46)
[2022-03-14] MEDS: FUROSEMIDE 40 MG TAB PO SCH (08:47)
[2022-03-14] MEDS: amLODIPine 10 MG TAB PO SCH (08:47)
[2022-03-14] MEDS: hydrALAZINE HCL 50 MG TAB PO SCH ×3 (08:47→21:04)
[2022-03-14] MEDS: ESCITALOPRAM 5 MG TAB PO SCH (08:47)
[2022-03-14] MEDS: METOPROLOL SUCCINATE (ER) 50 MG TAB.ER.24H PO SCH ×2 (08:47→21:03)
[2022-03-14] MEDS: HEPARIN SODIUM,PORCINE/PF 5,000 UNIT/0.5 ML SYRINGE SQ SCH ×2 (08:48→16:56)
[2022-03-14] MEDS: TOUJEO 300 UNIT/ML SQ SCH (08:50)
[2022-03-14] MEDS: LIRAGLUTIDE 0.6 MG/0.1 ML SQ SCH (08:50)
--- NOTE | 2022-03-14 10:10 | P.PN ---
Subjective Patient is seen in follow-up for acute kidney injury on chronic kidney disease. Renal function continues to gradually improve. Has been voiding. Oral intake. No vomiting or diarrhea. Underwent debridement of right lower extremity wounds on 03/11/2022. no active complaints. blood pressure better this morning at 157/74. Vital signs are stable. General: Awake. No acute distress. HEENT: Head exam is unremarkable. LUNGS: Breath sounds decreased. HEART: Rate and Rhythm are regular. ABDOMEN: Soft, no distention. EXTREMITITES: 1+ edema. No drainage noted. Objective - Vital Signs Vital signs: Vital Signs Temp 98.4 F 03/14/22 08:53 Pulse 69 03/14/22 08:53 Resp 16 03/14/22 08:53 BP 157/74 03/14/22 08:53 Pulse Ox 99 03/14/22 08:53 FiO2 Intake & Output 03/13/22 03/14/22 03/14/22 18:59 06:59 18:59 Intake Total 480 718 180 Balance 480 718 180 Intake: Oral 480 718 180 Other: Voiding Method Toilet Toilet Toilet # Voids 2 - Labs CBC & Chem 7: 03/13/22 05:58 03/14/22 05:49 Labs: Abnormal Lab Results - Last 24 Hours (Table) 03/13/22 03/13/22 03/13/22 Range/Units 11:53 17:26 19:51 Sodium (137-145) mmol/L BUN (9-20) mg/dL Creatinine (0.66-1.25) mg/dL Glucose (74-99) mg/dL POC Glucose (mg/dL) 281 H 229 H 187 H (70-110) mg/dL 03/14/22 03/14/22 Range/Units 05:49 06:31 Sodium 135 L (137-145) mmol/L BUN 40 H (9-20) mg/dL Creatinine 2.10 H (0.66-1.25) mg/dL Glucose 107 H (74-99) mg/dL POC Glucose (mg/dL) 119 H (70-110) mg/dL Microbiology - Last 24 Hours (Table) 03/08/22 21:45 Blood Culture - Preliminary Blood No Growth after 120 hours 03/08/22 21:30 Blood Culture - Preliminary Blood No Growth after 120 hours 03/11/22 17:05 Gram Stain - Final Toe - Right Fifth Wound Culture - Final Methicillin resist S. aureus 03/11/22 17:05 Gram Stain - Preliminary Foot - Right Wound Culture - Preliminary Methicillin resist S. aureus Yeast species Assessment and Plan Plan: Assessment: 1. Acute kidney injury mostly prerenal improved with IV hydration. Creatinine was 4.04 on admission and is 2.1 today. No hydronephrosis noted on kidney ul trasound. 2. Chronic kidney disease stage IIIB with baseline creatinine near 1.6-1.8 in May 2020 secondary to diabetic kidney disease. Patient follows with volunteer coordinator out of [place], [place]. 3. Hypertension with chronic kidney disease. Blood pressure better controlled today. 4. Diabetes mellitus. 5. Right foot infection. Wound culture positive for MRSA. Being followed by vascular surgery. Status post debridement 03/11/2022. Plan: remains off IV fluids. Avoid nephrotoxins. maintain oral Lasix. increase dose of Cardura.
[2022-03-14 11:29] LABS: Glucose,Whole Blood 177 mg/dL (70-110)
[2022-03-14] MEDS ORDERED: Magnesium Replacement Protocol 1 EACH MISC MISCELLANE PRN (13:18)
--- NOTE | 2022-03-14 13:19 | P.PN ---
Subjective Progress Note Date: 03/14/22 56-year-old male came in with complains of worsening right foot infection patient has a callus and a bony spur in the on the plantar surface of the right foot in the mid foot area. Patient was started on Bactrim by his physician which was discontinued couple days ago and patient was started on Keflex and doxycycline without any improvement patient was seen by silk crepe machine operator who sent him to ER. Patient is found to be in acute renal failure patient was started on vancomycin which will be switched to daptomycin because of poor function patient does have redness and infection in the web spaces as well predominantly between fourth and fifth toes. Patient baseline creatinine appears to be 1.6 and patient the creatinine on admission was 4.5. Wound cultures were obtained patient doesn't have any fever. Had leukocytosis on admission which is improving at this time patient was on IV fluids. Patient was hyponatremic as well. As per the previous history patient doesn't appear to have any CHF but is on Demadex. Patient is bit hypotensive as well. 03/10/2022 Patient is seen and evaluated and followed this morning was currently nothing by mouth for I&D with vascular surgery although no available OR time and being bumped for tomorrow. Patient is maintained on IV antibiotics and will continue and awaiting I&D with debridement for deep tissue cultures to determine discharge antibiotics. Infectious disease is following. Patient also with kidney injury although functions are improving and creatinine is 3.16 today. Recommend repeat labs and close monitoring. We'll continue to monitor blood sugars as well as blood pressures as they were elevated and have resume some home medications. Also IV hydralazine when necessary ordered as well. Patient is continued on daptomycin for now. Patient is currently afebrile denies chest pain or shortness of breath. Patient denies nausea or vomiting and reports to feeling hungry but reports he is nothing by mouth for the possible procedure. 03/11/2022 Patient is seen in follow-up this morning currently nothing by mouth again as patient is scheduled to undergo I&D with vascular surgery this afternoon. Vascular surgery, infectious disease, and nephrology following. Kidney functions improving and BUN is 45 with a creatinine of 2.73. Blood sugars mildly elevated and has brought in his touelmer antoine and requesting to switch to this as patient has had complications with other insulins in the outpatient setting and has been started on these medications with improvement in blood sugars for quite some time. Discussed with nursing staff with pharmacy to verify to use patient's home medications and will resume this. Recommend Accu- Cheks before meals and at bedtime. Patient okay to resume oral diabetic agents after surgery. ID following and patient is maintained on daptomycin with the wound culture showing MRSA and will most likely need IV antibiotics on discharge. Patient to obtain deep tissue cultures during procedure. Patient is afebrile denies chest pain or shortness of breath. 03/12/2022 Patient is seen and evaluated in follow-up this morning status post I&D with vascular surgery and has been cleared by vascular surgery services for discharge although pending wound consult with possible wound VAC placement. Deep tissue cultures were obtained and ID following closely as patient is maintained on daptomycin. Culture showed MRSA although waiting for deep tissue cultures to finalized. Blood sugars being monitored and home medications have been resumed. Patient's blood pressures continue to be mildly elevated and changing amlodipine from 5 up to 10 mg daily. Patient is afebrile and denies chest pain or shortness of breath. Patient denies nausea or vomiting and is tolerating diet. Nephrology following and kidney functions trending down and creatinine is currently down to 2.68. Patient will be scheduled to receive a PICC line in the dominant arm for outpatient IV antibiotic therapy. Case management following although we are continuing to wait for finalized cultures. Recommend repeat labs in a.m. 03/13/2022 Patient is evaluated resting in bed. Pending PICC line placement with IR which most likely won't be until tuesday. Did discuss with [facility] as they were here today however did not hear back. Creatinine today is 2.23, improving. Recommendations from wound care services for wound VAC placement. Wound cultures are pending finalized. Blood pressure continues to be elevated 180s systolic. Lasix daily added by nephrology. Sodium 134, hgb stable at 10.9. Blood glucose in the 280s. 03/14/2022 Patient evaluated today on step down unit pending PICC line placement on tuesday with IR. Creatinine today 2.10, BUN 40, sodium 135. Continues on lasix daily. No acute events overnight. Blood glucose improved. Does report increased pain to the right foot where ulcer is states it is controlled with pain medication though. Review of systems: Constitutional: No reports of fatigue, fever, or chills Cardiovascular: No reports of chest pain or palpitations Respiratory: No reports of shortness of breath or cough GI: No reports of nausea, vomiting, or diarrhea : No reports of dysuria or retention Neurovascular: No reports of weakness or numbness, reports some right foot discomfort at the surgical site at the time of exam was being redressed and evaluated by wound care All medications have been reviewed PHYSICAL EXAMINATION: GENERAL: The patient is alert and oriented x3, not in any acute distress. Well developed, well nourished. HEENT: Pupils are round and equally reacting to light. EOMI. No scleral icterus. No conjunctival pallor. Normocephalic, atraumatic. No pharyngeal erythema. No thyromegaly. CARDIOVASCULAR: S1 and S2 present. No murmurs, rubs, or gallops. PULMONARY: Chest is clear to auscultation, no wheezing or crackles. ABDOMEN: Soft, nontender, nondistended, normoactive bowel sounds. No palpable organomegaly. MUSCULOSKELETAL: No joint swelling or deformity. EXTREMITIES: No cyanosis, clubbing, or pedal edema. NEUROLOGICAL: Gross neurological examination did not reveal any focal deficits. SKIN: Currently has kerlex dressing in place to right foot intact and dry. Assessment: -Right foot cellulitis and wound infection: Deep tissue cultures showing MRSA patient continues on IV daptomycin. -Acute renal failure on chronic kidney disease stage III acute renal failure probably secondary to probably Bactrim along with diuretics as well as hypotension, improving and nephrology following, creatinine down to 2.10 -Type 2 diabetes mellitus and diabetic foot infection. Stable on home medications blood sugar improving -Hypertension -DVT prophylaxis: Subcutaneous heparin -GI prophylaxis: Pepcid -Full code Plan: Recommend continue with IV antibiotics in the form of daptomycin with infectious disease along with nephrology and vascular surgery following. Vascular surgery performed I&D and deep tissue cultures showing MRSA. Wound care also consulted and recommends for wound VAC and if unable to obtain good seal than use absorptive silver rope, saline moist gauze, dry gauze, rolled gauze and secure with paper tape to be changed tuesday, tuesday, tuesday. Patient is to receive a PICC line with case management following and arranging for possible outpatient antibiotics along with wound VAC and wound care as well as home care once discharged. Recommend to wait for deep tissue cultures to determine discharge antibiotics. Continue on increased dose of norvasc, nephrology has added lasix 40 mg po daily. Continue to monitor blood pressure and repeat BMP in AM. PICC line will have to be completed on Tuesday when interventional radiology is available. The impression and plan of care has been dictated by Mimi Smith, Nurse Practitioner as directed. Dr. Cl MD I have performed a history and physical examination and medical decision making of this patient, discussed the same with the dictator, and agree with the dictators assessment and plan as written, documented as a scribe. Based on total visit time, I have performed more than 50% of this visit. Objective - Vital Signs Vital signs: Vital Signs Temp 98.4 F 03/14/22 11:59 Pulse 71 03/14/22 11:59 Resp 16 03/14/22 11:59 BP 145/76 03/14/22 11:59 Pulse Ox 99 03/14/22 11:59 FiO2 Intake & Output 03/13/22 03/14/22 03/14/22 18:59 06:59 18:59 Intake Total 480 718 180 Balance 480 718 180 Intake: Oral 480 718 180 Other: Voiding Method Toilet Toilet Toilet # Voids 2 - Labs CBC & Chem 7: 03/13/22 05:58 03/14/22 05:49 Labs: Abnormal Lab Results - Last 24 Hours (Table) 03/13/22 03/13/22 03/14/22 Range/Units 17:26 19:51 05:49 Sodium 135 L (137-145) mmol/L BUN 40 H (9-20) mg/dL Creatinine 2.10 H (0.66-1.25) mg/dL Glucose 107 H (74-99) mg/dL POC Glucose (mg/dL) 229 H 187 H (70-110) mg/dL 03/14/22 03/14/22 Range/Units 06:31 11:25 Sodium (137-145) mmol/L BUN (9-20) mg/dL Creatinine (0.66-1.25) mg/dL Glucose (74-99) mg/dL POC Glucose (mg/dL) 119 H 177 H (70-110) mg/dL Microbiology - Last 24 Hours (Table) 03/08/22 21:45 Blood Culture - Preliminary Blood No Growth after 120 hours 03/08/22 21:30 Blood Culture - Preliminary Blood No Growth after 120 hours 03/11/22 17:05 Gram Stain - Final Toe - Right Fifth Wound Culture - Final Methicillin resist S. aureus 03/11/22 17:05 Gram Stain - Preliminary Foot - Right Wound Culture - Preliminary Methicillin resist S. aureus Yeast species Assessment and Plan Time with Patient: Less than 30
[2022-03-14] MEDS: MAGNESIUM SULFATE-D5W PMX 1 GM in DEXTROSE/WATER 1 100ML.BAG IVPB SCH ×2 (13:35→15:42)
[2022-03-14 16:38] LABS: Glucose,Whole Blood 250 mg/dL (70-110)
[2022-03-14 20:28] LABS: Glucose,Whole Blood 210 mg/dL (70-110)
[2022-03-14] MEDS: DOXAZOSIN 2 MG TAB PO SCH (21:03)
[2022-03-15] MEDS: ACETAMINOPHEN TAB 325 MG TAB PO PRN (00:30)
[2022-03-15] MEDS: HEPARIN SODIUM,PORCINE/PF 5,000 UNIT/0.5 ML SYRINGE SQ SCH ×3 (00:30→15:20)
[2022-03-15 06:00] LABS: Glucose,Whole Blood 93 mg/dL (70-110)
[2022-03-15] MEDS: INSULIN ASPART (NovoLOG) 100 UNIT/ML VIAL SQ SCH ×3 (06:48→17:07)
[2022-03-15 07:49] LABS: Calcium 9.1 mg/dL (8.4-10.2); Magnesium 2.1 mg/dL (1.6-2.3); Potassium 4.5 mmol/L (3.5-5.1)
--- NOTE | 2022-03-15 08:06 | P.PN ---
Subjective Progress Note Date: 03/14/22 Principal diagnosis: Right diabetic foot infection Patient is a 56 year old male with a past medical history significant for diabetes mellitus presenting to the hospital with a nonhealing wound on the plantar aspect of his right foot with purulent drainage has been diagnosed with diabetic foot infection and for underlying abscess, patient is status post surgical drainage of this abscess which was extended down to the bone per the operative report on 03/11/2022 On today's evaluation that is 03/14/2022, the patient remains to be afebrile, patient is breathing comfortably on room air, the patient denies chest pain shortness of breath or cough , the patient denies nausea no vomiting no abdominal pain, the patient did have occasional pain to the right foot area, the patient is overall feeling better Objective - Vital Signs Vital signs: Vital Signs Temp 98.4 F 03/14/22 11:59 Pulse 71 03/14/22 11:59 Resp 16 03/14/22 11:59 BP 145/76 03/14/22 11:59 Pulse Ox 99 03/14/22 11:59 FiO2 Intake & Output 03/13/22 03/14/22 03/14/22 18:59 06:59 18:59 Intake Total 480 718 180 Balance 480 718 180 Intake: Oral 480 718 180 Other: Voiding Method Toilet Toilet Toilet # Voids 2 1 - Exam GENERAL DESCRIPTION: Middle-age male lying in bed in no distress RESPIRATORY SYSTEM: Unlabored breathing , decreased breath sounds at bases HEART: S1 S2 regular rate and rhythm , ABDOMEN: Soft , no tenderness EXTREMITIES: Right foot is currently dressed no drainage on the dressing - Labs CBC & Chem 7: 03/13/22 05:58 03/15/22 07:05 Labs: Abnormal Lab Results - Last 24 Hours (Table) 03/13/22 03/13/22 03/14/22 Range/Units 17:26 19:51 05:49 Sodium 135 L (137-145) mmol/L BUN 40 H (9-20) mg/dL Creatinine 2.10 H (0.66-1.25) mg/dL Glucose 107 H (74-99) mg/dL POC Glucose (mg/dL) 229 H 187 H (70-110) mg/dL 09/18/22 09/18/22 09/18/22 Range/Units 06:31 11:25 16:36 Sodium (137-145) mmol/L BUN (9-20) mg/dL Creatinine (0.66-1.25) mg/dL Glucose (74-99) mg/dL POC Glucose (mg/dL) 119 H 177 H 250 H (70-110) mg/dL Microbiology - Last 24 Hours (Table) 03/08/22 21:45 Blood Culture - Preliminary Blood No Growth after 120 hours 03/08/22 21:30 Blood Culture - Preliminary Blood No Growth after 120 hours 03/11/22 17:05 Gram Stain - Final Toe - Right Fifth Wound Culture - Final Methicillin resist S. aureus 03/11/22 17:05 Gram Stain - Preliminary Foot - Right Wound Culture - Preliminary Methicillin resist S. aureus Yeast species Assessment and Plan (1) Diabetic infection of right foot Current Visit: Yes Status: Acute Code(s): E11.628 - TYPE 2 DIABETES MELLITUS WITH OTHER SKIN COMPLICATIONS; L08.9 - LOCAL INFECTION OF THE SKIN AND SUBCUTANEOUS TISSUE, UNSP SNOMED Code(s): 06227661 Plan: 1patient with a right diabetic foot infection with a possible abscess on the plantar aspect of the right foot failed to respond to the outpatient treatment with concern for possible gram-positive skin jessica such as MRSA. 2renal insufficiency and high risk of nephrotoxicity from vancomycin. 3vascular surgery has evaluated the patient and is status post drainage of possible abscess extending down to the bone concerning for osteomyelitis. 4patient did culture finalized with MRSA, patient to continue with daptomycin, waiting for a PICC line placement for outpatient IV antibiotics 6 weeks Time with Patient: Less than 30
[2022-03-15] MEDS ORDERED: FAMOTIDINE 20 MG TAB PO SCH (09:00)
[2022-03-15] MEDS: hydrALAZINE HCL 50 MG TAB PO SCH ×2 (09:24→15:21)
[2022-03-15] MEDS: DOXAZOSIN 2 MG TAB PO SCH (09:24)
[2022-03-15] MEDS: EZETIMIBE 10 MG TAB PO SCH (09:30)
[2022-03-15] MEDS: MULTIVITAMINS, THERA 1 EACH TAB PO SCH (09:31)
[2022-03-15] MEDS: amLODIPine 10 MG TAB PO SCH (09:31)
[2022-03-15] MEDS: FUROSEMIDE 40 MG TAB PO SCH (09:31)
[2022-03-15] MEDS: ESCITALOPRAM 5 MG TAB PO SCH (09:31)
[2022-03-15] MEDS: METOPROLOL SUCCINATE (ER) 50 MG TAB.ER.24H PO SCH (10:25)
[2022-03-15] MEDS: TOUJEO 300 UNIT/ML SQ SCH ×2 (10:25→12:52)
[2022-03-15] MEDS: LIRAGLUTIDE 0.6 MG/0.1 ML SQ SCH ×2 (10:25→12:52)
[2022-03-15] MEDS: LABETALOL 200 MG TAB PO SCH (10:27)
[2022-03-15 10:53] VITALS: RESP 16
[2022-03-15 11:48] LABS: Glucose,Whole Blood 175 mg/dL (70-110)
--- NOTE | 2022-03-15 12:13 | P.PN ---
Subjective atient is seen in follow-up for acute kidney injury on chronic kidney disease. Renal function continues to gradually improve. Has been voiding. Oral intake. No vomiting or diarrhea. Underwent debridement of right lower extremity wounds on 03/11/2022. no active complaints. Going for PICC line for long-term antibiotics for MRSA right foot wound infection. 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 - Labs CBC & Chem 7: 03/13/22 05:58 03/15/22 07:05 Labs: Abnormal Lab Results - Last 24 Hours (Table) 03/14/22 03/14/22 03/15/22 Range/Units 16:36 20:27 07:05 Sodium 136 L (137-145) mmol/L BUN 45 H (9-20) mg/dL Creatinine 2.27 H (0.66-1.25) mg/dL POC Glucose (mg/dL) 250 H 210 H (70-110) mg/dL 03/15/22 Range/Units 11:46 Sodium (137-145) mmol/L BUN (9-20) mg/dL Creatinine (0.66-1.25) mg/dL POC Glucose (mg/dL) 175 H (70-110) mg/dL Microbiology - Last 24 Hours (Table) 03/11/22 17:05 Anaerobic Culture - Preliminary Foot - Right 03/08/22 21:30 Blood Culture - Final Blood No Growth after 144 hours 03/08/22 21:45 Blood Culture - Final Blood No Growth after 144 hours Assessment and Plan Assessment: 1. Acute kidney injury mostly prerenal improved with IV hydration. Creatinine was 4.04 on admission and is 2.2 today. No hydronephrosis noted on kidney ultrasound. 2. Chronic kidney disease stage IIIB with baseline creatinine near 1.6-1.8 in May 2020 secondary to diabetic kidney disease. Patient follows with photograph editor out of [place], [place]. 3. Hypertension with chronic kidney disease. Blood pressure better controlled today. 4. Diabetes mellitus. 5. Right foot infection. Wound culture positive for MRSA. Being followed by vascular surgery. Status post debridement 03/11/2022. Plan: Continue current dose of diuretics and antihypertensive medications. Okay to proceed with PICC line in dominant arm Follow-up as outpatient with primary photograph editor out of [place]
--- NOTE | 2022-03-15 12:23 | P.PN ---
Subjective Progress Note Date: 03/15/22 Principal diagnosis: Right diabetic foot infection Patient is a 56 year old male with a past medical history significant for diabetes mellitus presenting to the hospital with a nonhealing wound on the plantar aspect of his right foot with purulent drainage has been diagnosed with diabetic foot infection and for underlying abscess, patient is status post surgical drainage of this abscess which was extended down to the bone per the operative report on 03/11/2022 On today's evaluation that is 03/15/2022, the patient continues to be afebrile, patient is breathing comfortably on room air, the patient denies chest pain shortness of breath or cough , the patient denies nausea no vomiting no abdominal pain, the patient pain to the right foot area has improved no further drainage currently waiting for a PICC line placement Objective - Vital Signs Vital signs: Vital Signs Temp 98.6 F 03/15/22 08:00 Pulse 84 03/15/22 08:00 Resp 16 03/15/22 08:00 BP 121/70 03/15/22 08:00 Pulse Ox 98 03/15/22 08:00 FiO2 Intake & Output 03/14/22 03/15/22 03/15/22 18:59 06:59 18:59 Intake Total 180 900 480 Balance 180 900 480 Intake: Oral 180 900 480 Other: Voiding Method Toilet Toilet Toilet # Voids 1 2 - Exam GENERAL DESCRIPTION: Middle-age male lying in bed in no distress RESPIRATORY SYSTEM: Unlabored breathing , decreased breath sounds at bases HEART: S1 S2 regular rate and rhythm , ABDOMEN: Soft , no tenderness EXTREMITIES: Right foot is currently dressed there is no drainage on the dressing - Labs CBC & Chem 7: 03/13/22 05:58 03/15/22 07:05 Labs: Abnormal Lab Results - Last 24 Hours (Table) 03/14/22 03/14/22 03/15/22 Range/Units 16:36 20:27 07:05 Sodium 136 L (137-145) mmol/L BUN 45 H (9-20) mg/dL Creatinine 2.27 H (0.66-1.25) mg/dL POC Glucose (mg/dL) 250 H 210 H (70-110) mg/dL 03/15/22 Range/Units 11:46 Sodium (137-145) mmol/L BUN (9-20) mg/dL Creatinine (0.66-1.25) mg/dL POC Glucose (mg/dL) 175 H (70-110) mg/dL Microbiology - Last 24 Hours (Table) 03/11/22 17:05 Anaerobic Culture - Preliminary Foot - Right 03/08/22 21:30 Blood Culture - Final Blood No Growth after 144 hours 03/08/22 21:45 Blood Culture - Final Blood No Growth after 144 hours Assessment and Plan (1) Diabetic infection of right foot Current Visit: Yes Status: Acute Code(s): E11.628 - TYPE 2 DIABETES MELLITUS WITH OTHER SKIN COMPLICATIONS; L08.9 - LOCAL INFECTION OF THE SKIN AND SUBCUTANEOUS TISSUE, UNSP SNOMED Code(s): 49686841 Plan: 1patient with a right diabetic foot infection with a possible abscess on the plantar aspect of the right foot failed to respond to the outpatient treatment with concern for possible gram-positive skin jessica such as MRSA. 2renal insufficiency and high risk of nephrotoxicity from vancomycin. 3vascular surgery has evaluated the patient and is status post drainage of possible abscess extending down to the bone concerning for osteomyelitis. 4patient OR culture finalized with MRSA anaerobe cultures has been negative, patient to continue with daptomycin, waiting for a PICC line placement for outpatient IV antibiotics 6 weeks and close outpatient follow-up
--- NOTE | 2022-03-15 13:29 | P.PN ---
Subjective Progress Note Date: 03/15/22 Patient was seen and examined today as a follow-up. He was status post incision and drainage right foot wounds. Patient state the weekend in the hospital awaiting wound cultures and is currently waiting to receive PICC line placement. Cultures positive for MRSA. Apparently nursing reported they were unable to apply wound VAC due to not getting a good seal. Wound care had seen patient and recommended Aquacel silver rope with wet to dry dressing. Objective - Vital Signs Vital signs: Vital Signs Temp 98.6 F 03/15/22 08:00 Pulse 84 03/15/22 08:00 Resp 16 03/15/22 08:00 BP 121/70 03/15/22 08:00 Pulse Ox 98 03/15/22 08:00 FiO2 Intake & Output 03/14/22 03/15/22 03/15/22 18:59 06:59 18:59 Intake Total 180 900 480 Balance 180 900 480 Intake: Oral 180 900 480 Other: Voiding Method Toilet Toilet Toilet # Voids 1 2 - Exam General appearance: The patient is alert, oriented, appears in no acute distress. HET: Head is normocephalic and atraumatic. Neck: Supple Extremities: Right foot with dressing in place. Warm to the touch, palpable DP pulse. Plantar wound without any significant drainage to the bone. Right fifth toe wound minimal amount of drainage, no odor. Neurological: Alert and oriented 3. - Labs CBC & Chem 7: 03/13/22 05:58 03/15/22 07:05 Labs: Abnormal Lab Results - Last 24 Hours (Table) 03/14/22 03/14/22 03/15/22 Range/Units 16:36 20:27 07:05 Sodium 136 L (137-145) mmol/L BUN 45 H (9-20) mg/dL Creatinine 2.27 H (0.66-1.25) mg/dL POC Glucose (mg/dL) 250 H 210 H (70-110) mg/dL 03/15/22 Range/Units 11:46 Sodium (137-145) mmol/L BUN (9-20) mg/dL Creatinine (0.66-1.25) mg/dL POC Glucose (mg/dL) 175 H (70-110) mg/dL Microbiology - Last 24 Hours (Table) 03/11/22 17:05 Anaerobic Culture - Preliminary Foot - Right 03/08/22 21:30 Blood Culture - Final Blood No Growth after 144 hours 03/08/22 21:45 Blood Culture - Final Blood No Growth after 144 hours Assessment and Plan Assessment: 1. Diabetic foot wound right lower extremity status post surgical debridement 2. Renal insufficiency 3. Diabetic vascular disease 4. Diabetic neuropathy Plan: 1. Consistent carbohydrate diet 2. Continue medical management 3. Continue IV antibiotics per recommendations from infectious disease 4. Continue local wound care as recommended wound clinic. 5. Patient is cleared for discharge from vascular surgery, patient is scheduled for home care with follow-up appointment and that wound care center in [place] Thank you for this consultation, we will sign off at this time. The impression and plan of care has been dictated as directed. Dr. Mo I performed a history and examination of this patient, discussed the same with the dictator. I agree with the dictator's note ,documented as a scribe. Any additional findings or plans will be noted.
[2022-03-15 15:54] VITALS: BP 151/71; PULSE 67; TEMP 98.5
[2022-03-15] MEDS ORDERED: LIDOCAINE 1% INJ 10MG/ML (30 ML VIAL-PF) SQ ONE (16:40)
[2022-03-15 17:00] LABS: Glucose,Whole Blood 213 mg/dL (70-110)
--- NOTE | 2022-03-16 11:57 | IR ---
EXAMINATION TYPE: IR cvc insert >=5 years DATE OF EXAM: 03/15/2022 COMPARISON: NONE CLINICAL HISTORY: Infection Needs long-term intravenous access for antibiotics. PROCEDURE: Hand hygiene obtained with soap and water and alcohol-based hand rub. After informed consent, the skin overlying the left brachial vein was localized with ultrasound and n oted to be compressible and patent. An ultrasound image was obtained and submitted on the patient's chart. The overlying skin was prepped and draped and Lidocaine was used for local anesthesia. A ski n arie was made with a scalpel. Access was gained to the vein under ultrasound guidance with a 21 ga uge needle and a 0.018 inch wire was advanced. Access site was dilated with Peel-Away sheath and cat heter tailored to the appropriate length and advanced such that the distal tip is at the cavoatrial j unction. Spot image was obtained verifying placement. Catheter was fixed to the skin and a sterile dressing was placed following hemostasis. Catheter was aspirated and flushed with saline. Patient w as discharged in stable condition without complication.Maximal barrier technique is utilized. Ultras ound image is documented on the chart. Ultrasound used with sterile technique. Fluoro time and fluoroscopic images submitted to document procedure: 51 images, 0.2 minutes fluorosco py time IMPRESSION: STATUS POST ULTRASOUND AND FLUOROSCOPIC GUIDED PICC LINE PLACEMENT, READY FOR USE. THIS PROCEDURE WAS PERFORMED BY THE UNDERSIGNED.
--- NOTE | 2022-03-17 15:26 | P.DS ---
Providers Date of admission: 03/09/22 10:07 Expected date of discharge: 03/15/22 Attending physician: Rohit Grayson MD Consults: 03/09/22 10:59 Consult Physician Routine Consulting Provider: Genaro Harper Consult Reason/Comments: Cellulitis Do you want consulting provider notified?: Yes 03/09/22 11:35 Consult Physician Routine Consulting Provider: Pantera Schroeder Consult Reason/Comments: RASHAUN Do you want consulting provider notified?: Yes 03/09/22 13:47 Consult Physician Routine Consulting Provider: Heidi Maradiaga Consult Reason/Comments: right foot abscess , draiange and cultures Do you want consulting provider notified?: Yes Primary care physician: Allan Domínguez Hospital Course: Final diagnosis -Right foot cellulitis and wound infection with cultures showing MRSA, status post debridement with vascular surgery -Status post PICC line placement -Acute renal failure on chronic kidney disease stage III acute renal failure probably secondary to Bactrim along with diuretics as well as hypotension, improving -Type 2 diabetes mellitus and diabetic foot infection. -Hypertension -DVT prophylaxis -GI prophylaxis -Full code Discharge disposition Patient is being discharged in a stable condition with guarded prognosis to home with home care. Patient will follow-up with Dr. Domínguez in the outpatient setting upon discharge. Patient is to also follow-up with Dr. Harper and vascular surgery along with nephrology as scheduled. Patient will continue on IV antibiotics per infectious disease recommendations and prescription provided for outpatient labs. Total time taken is greater than 35 minutes. Hospital course This is a 56-year-old male who was recently admitted with right foot infection with failed outpatient antibiotic therapy and was evaluated by a clinching machine operator who sent him to the ER for further evaluation. Patient also with acute renal failure and started on daptomycin with anxiety following along with nephrology. Patient underwent I&D debridement with vascular surgery of the right foot with concerns for deep tissue and possible leading to the bone infection. Cultures were finalized with MRSA and gram positive cocci and did receive a PICC line for outpatient IV antibiotic therapy. Patient with insulin-dependent diabetes resumed on home medications and recommend close monitoring of Accu-Cheks and diet control. Patient encouraged to follow-up with vascular surgery along with infectious disease and his primary care provider on discharge. Patient also recommended repeat labs in the next few days to monitor kidney functions and close outpatient follow-up with nephrology. Currently no reports of chest pain, shortness of breath, or palpitations. Patient is afebrile. No reports of nausea or vomiting and patient is tolerating diet. Patient will be discharged home with home care today and also has received a wound VAC. Physical exam: Gen: This is a 56-year-old male who is awake and alert and oriented 3, well- developed, well-nourished, obese. HEENT: Head is atraumatic, normocephalic. Pupils equal, round. Sclerae is anicteric. NECK: Supple. No JVD. No lymphadenopathy. No thyromegaly. LUNGS: Clear to auscultation. No wheezes or rhonchi. No intercostal retractions. HEART: Regular rate and rhythm. No murmur. ABDOMEN: Soft. Bowel sounds are present. No masses. No tenderness. EXTREMITIES: No pedal edema. No calf tenderness. NEUROLOGICAL: Patient is awake, alert and oriented x3. Cranial nerves 2 through 12 are grossly intact. Please refer to medication reconciliation sheet for a list of medications. The impression and plan of care has been dictated by Christine Corcoran, Nurse Practitioner as directed. Dr. Cl MD I have performed a history and examination and MDM of this patient, discussed the same with the dictator, and agree with the dictator's assessment and plan as written ,documented as a scribe. Based on total visit time, I have performed more than 50% of the visit. Patient Condition at Discharge: Stable Plan - Discharge Summary Discharge Rx Participant: No New Discharge Prescriptions: New Furosemide [Lasix] 40 mg PO DAILY #30 tab Multivitamins, Thera [Multivitamin (formulary)] 1 each PO DAILY #30 tab amLODIPine [Norvasc] 10 mg PO DAILY #30 tab Famotidine [Pepcid] 20 mg PO DAILY #30 tab Continue Ergocalciferol [Vitamin D2 (DRISDOL)] 50,000 unit PO WE Escitalopram [Lexapro] 5 mg PO DAILY Ezetimibe [Zetia] 10 mg PO DAILY Arginine [l-Arginine] 1,000 mg PO BID Ubidecarenone [Co Q-10] 100 mg PO DAILY Insulin Glargine,Hum.rec.anlog [Toujeo Solostar] 95 units SQ DAILY Cinnamon Bark [Cinnamon] 1,000 mg PO BID Liraglutide [Victoza 3-Jimmy] 1.8 mg SQ DAILY Garlic 1,000 mg PO BID Labetalol HCl 200 mg PO BID Dapagliflozin Propanediol [Farxiga] 5 mg PO DAILY Turmeric Root Extract [Turmeric] 500 mg PO BID Fish Oil/Dha/Epa [Fish Oil 1,200 mg Fish Oil] 1 cap PO BID Terazosin HCl 2 mg PO BID calcitrioL [Rocaltrol] 0.25 mcg PO Q48H Acetaminophen-Codeine 300-30mg [Tylenol w/codeine #3] 1 tab PO Q6H PRN PRN Reason: Pain Changed hydrALAZINE HCL [Apresoline] 100 mg PO TID 30 Days #90 tab Discontinued Aspirin EC [Ecotrin] 325 mg PO DAILY Doxycycline Hyclate 100 mg PO BID Zinc Gluconate [Zinc] 50 mg PO DAILY Torsemide [Demadex] 40 mg PO DAILY Discharge Medication List Arginine [l-Arginine] 1,000 mg PO BID 06/04/20 [History] Cinnamon Bark [Cinnamon] 1,000 mg PO BID 06/04/20 [History] Ergocalciferol [Vitamin D2 (DRISDOL)] 50,000 unit PO WE 06/04/20 [History] Escitalopram [Lexapro] 5 mg PO DAILY 06/04/20 [History] Ezetimibe [Zetia] 10 mg PO DAILY 06/04/20 [History] Insulin Glargine,Hum.rec.anlog [Touelina Solostar] 95 units SQ DAILY 06/04/20 [History] Liraglutide [Victoza 3-Jimmy] 1.8 mg SQ DAILY 06/04/20 [History] Ubidecarenone [Co Q-10] 100 mg PO DAILY 06/04/20 [History] Acetaminophen-Codeine 300-30mg [Tylenol w/codeine #3] 1 tab PO Q6H PRN 03/08/22 [History] Dapagliflozin Propanediol [Farxiga] 5 mg PO DAILY 03/08/22 [History] Fish Oil/Dha/Epa [Fish Oil 1,200 mg Fish Oil] 1 cap PO BID 03/08/22 [History] Garlic 1,000 mg PO BID 03/08/22 [History] Labetalol HCl 200 mg PO BID 03/08/22 [History] Terazosin HCl 2 mg PO BID 03/08/22 [History] Turmeric Root Extract [Turmeric] 500 mg PO BID 03/08/22 [History] calcitrioL [Rocaltrol] 0.25 mcg PO Q48H 03/08/22 [History] Famotidine [Pepcid] 20 mg PO DAILY #30 tab 03/15/22 [Rx] Furosemide [Lasix] 40 mg PO DAILY #30 tab 03/15/22 [Rx] Multivitamins, Thera [Multivitamin (formulary)] 1 each PO DAILY #30 tab 03/15/22 [Rx] amLODIPine [Norvasc] 10 mg PO DAILY #30 tab 03/15/22 [Rx] hydrALAZINE HCL [Apresoline] 100 mg PO TID 30 Days #90 tab 03/15/22 [Rx] Follow up Appointment(s)/Referral(s): Lelo Guy MD [STAFF PHYSICIAN] - 1 Week (Office closed ) RAMU Villar [NON-STAFF] - (Wound Vac) Heidi Maradiaga DO [STAFF PHYSICIAN] - As Needed [facility], [NON-STAFF] - 03/16/22 [facility]fusion [NON-STAFF] - Allan Domínguez MD [Primary Care Provider] - 1-2 days (office closed) Genaro Harper MD [STAFF PHYSICIAN] - 1 Week Ambulatory/Diagnostic Orders: Basic Metabolic Panel [LAB.AMB] Location: None Selected C Reactive Protein [LAB.AMB] Time Frame: 6 Weeks, Location: None Selected Complete Blood Count w/diff [LAB.AMB] Location: None Selected Erythrocyte Sedimentation Rate [LAB.AMB] Location: None Selected Activity/Diet/Wound Care/Special Instructions: Wound care instructions: Please try to apply wound vac as ordered to wound on medial aspect of right foot. This can also be bridged to plantar wound if possible. If unable to get good seal apply Absorptive silver rope, saline moist gauze, dry gauze, rolled gauze and secure with paper tape. Change dressing to right foot every Tuesday and Tuesday. Activity Limited until follow-up Continue with antibiotics per infectious disease recommendations Recommend follow-up with primary care provider discharge Recommend outpatient follow-up with nephrology in 1-2 weeks Recommend following up at the wound care clinic with Dr. Harper at [facility] phone number is [phone] to make an appointment Continue monitoring blood sugars Continue renal diabetic diet Discharge Disposition: HOME WITH HOME HEALTH SERVICES
== END 2022-03-15 17:32 | disposition home health service (06) | DRG 629 ==
LOC: EC 16:02 → 6NMEDSUR 21:34 → OBSVTOIN 03-09 10:07 → 4SSUR 03-09 14:14 → 3SCARD 03-09 22:00
PROVIDERS: ADMIT Internal Medicine; ATTEND Internal Medicine
PROC: 0QBN0ZZ Excision of Right Metatarsal, Open Approach (ICD-10-PCS; principal; 2022-03-11 14:00)
PROC: 02HV33Z Insertion of Infusion Device into Superior Vena Cava, Percutaneous Approach (ICD-10-PCS; 2022-03-15)
DX: E11.621 Type 2 diabetes mellitus with foot ulcer (principal); E87.1 Hypo-osmolality and hyponatremia; L02.611 Cutaneous abscess of right foot; L03.115 Cellulitis of right lower limb; L97.515 Non-pressure chronic ulcer of other part of right foot with muscle involvement without evidence of necrosis; E11.628 Type 2 diabetes mellitus with other skin complications; L97.512 Non-pressure chronic ulcer of other part of right foot with fat layer exposed; N17.9 Acute kidney failure, unspecified; E11.22 Type 2 diabetes mellitus with diabetic chronic kidney disease; I12.9 Hypertensive chronic kidney disease with stage 1 through stage 4 chronic kidney disease, or unspecified chronic kidney disease; N18.32 Chronic kidney disease, stage 3b; E78.5 Hyperlipidemia, unspecified; T36.8X5A Adverse effect of other systemic antibiotics, initial encounter; T50.2X5A Adverse effect of carbonic-anhydrase inhibitors, benzothiadiazides and other diuretics, initial encounter; I95.9 Hypotension, unspecified; M77.9 Enthesopathy, unspecified; E11.40 Type 2 diabetes mellitus with diabetic neuropathy, unspecified; E11.51 Type 2 diabetes mellitus with diabetic peripheral angiopathy without gangrene; B95.62 Methicillin resistant Staphylococcus aureus infection as the cause of diseases classified elsewhere; Z79.4 Long term (current) use of insulin; Z79.84 Long term (current) use of oral hypoglycemic drugs; Z79.899 Other long term (current) drug therapy; Z87.891 Personal history of nicotine dependence; Z79.82 Long term (current) use of aspirin; Z88.0 Allergy status to penicillin; Z98.49 Cataract extraction status, unspecified eye
CPT/HCPCS: 36573; 76770; 80048; 80053; 81001; 83036; 83605; 83735; 85025; 85027; 85652; 86140; 87040; 87070; 87075; 87077; 87186; 87205; 94760; 96361; 96365; 96366; 96367; 96372; 96375; 99284; 99285